=== PATIENT | female | born 1945 | race Hispanic/Latino ===

== ENCOUNTER 2018-05-03 14:06 | Inpatient (IN) | payer OTHER ==
[2018-05-03] MEDS ORDERED: ONDANSETRON 4 MG/2 ML VIAL ONE ×2 (15:29→22:15)
[2018-05-03] MEDS ORDERED: NA CHLORIDE 0.9% 1,000 ML ONE (15:29)
[2018-05-03 15:32] LABS: Absolute Monocytes 0.6 K/uL (0.1-1.3); Basophils % 0.6 % (0-1.3); Hematocrit 47.9 % (36.0-45.0); Lymphocytes % 9.5 % (15.3-44.8); MPV 7.8 fL (7.6-11.3); RBC Red Blood Cell Count 5.28 M/uL (3.86-4.86)
[2018-05-03 15:52] LABS: Albumin 3.7 g/dL (3.4-5.0); Bilirubin Direct 0.2 mg/dL (0-0.2); Bilirubin Total 0.8 mg/dL (0.2-1.0); Potassium 4.2 mmol/L (3.5-5.1); Protein, Total 8.2 g/dL (6.4-8.2)
--- NOTE | 2018-05-03 16:16 | RAD REPORT ---
EXAM DESCRIPTION: US - Abdomen Exam Limited - 05/03/2018 3:57 pm CLINICAL HISTORY: ABD PAIN COMPARISON: No comparisons FINDINGS: The gallbladder demonstrates several large shadowing gallstones. No pericholecystic fluid or gallbladder wall thickening. The common bile duct is normal measuring 5 mm. The liver demonstrates fatty liver. IMPRESSION: Cholelithiasis.
[2018-05-03] MEDS ORDERED: MEPERIDINE HCL 25 MG/0.5 ML ONE (18:08)
--- NOTE | 2018-05-03 18:19 | RAD REPORT ---
EXAM DESCRIPTION: CTAbdomen Pelvis W Contrast - 05/03/2018 6:09 pm CLINICAL HISTORY: Abdominal pain. Abd pain;Nausea / vomiting COMPARISON: No comparisons TECHNIQUE: Biphasic CT imaging of the abdomen and pelvis was performed with 100 ml non-ionic IV cont rast. All CT scans are performed using dose optimization technique as appropriate and may include automated exposure control or mA/KV adjustment according to patient size. FINDINGS: The lung bases are clear. Diffuse fatty liver is present. Cholelithiasis noted. The spleen, pancreas, adrenal glands and kidney s are within normal limits. Mild ascites is present in the abdomen. There is a moderate mechanical small-bowel obstruction presen t. Point of transition is noted in the distal small bowel (image 54/93). A subtle swirling appearance to the mesenteric fat and bowel loops in this region noted. No pneumatosis is seen. No pneumoperiton eum. The appendix is normal. No evidence of significant lymphadenopathy. No suspicious bony findings. IMPRESSION: Moderate mechanical small-bowel obstruction is noted with mild ascites. Point of transit ion is noted at the level of the distal small bowel where a mild swirling pattern is present to the s mall bowel and mesenteric fat. This could indicate the presence of a partial volvulus or adhesions in this region. Cholelithiasis. Fatty liver.
--- NOTE | 2018-05-03 18:36 | EDPHYS ---
Physician Documentation [facility] Name: Yoselin Blum Age: 72 yrs Sex: Female : 1945 Arrival Date: 05/03/2018 Time: 14:09 Bed 17 Private MD: Ruiz Kang ED Physician Yossi Stanley HPI: 05/03 15:09 This 72 yrs old Female presents to ER via Ambulatory with complaints of rn Abdominal Pain. 15:09 The patient presents with abdominal pain that is diffuse. Onset: The symptoms/episode rn began/occurred 2 day(s) ago. The symptoms do not radiate. Associated signs and symptoms: Pertinent positives: nausea and vomiting, anorexia, Pertinent negatives: diarrhea, fever. Modifying factors: The symptoms are alleviated by nothing, the symptoms are aggravated by touching the area. Severity of pain: At its worst the pain was moderate. The patient has not experienced similar symptoms in the past. The patient has been recently seen by a physician:. Reports saw Dr. Kang earlier this week, diagnosed with bronchitis, given abx, last 2 days with nausea/vomiting/abd pain, getting worse, no diarrhea. . Historical: - Allergies: 14:41 Aspirin; dm5 - Home Meds: 14:41 None [Active]; dm5 - PMHx: 14:41 seaosnal allergies; dm5 - PSHx: 14:41 Hysterectomy; dm5 - Immunization history:: Adult Immunizations. - Social history:: Smoking status: . - Family history:: not pertinent. - Ebola Screening: : Patient denies travel to an Ebola-affected area in the 21 days before illness onset. - Hospitalizations: : No recent hospitalization is reported. ROS: 15:09 Constitutional: Negative for fever, chills, and weight loss, Eyes: Negative for injury, rn pain, redness, and discharge, Neck: Negative for injury, pain, and swelling, Cardiovascular: Negative for chest pain, palpitations, and edema, Respiratory: Negative for shortness of breath, cough, wheezing, and pleuritic chest pain, Abdomen/GI: + abd pain/nausea/vomiting MS/Extremity: Negative for injury and deformity, Skin: Negative for injury, rash, and discoloration, Neuro: Negative for headache, numbness, tingling, and seizure. Exam: 15:09 Constitutional: This is a well developed, well nourished patient who is awake, alert, rn appears weak and holding emesis bag Head/Face: Normocephalic, atraumatic. Eyes: Pupils equal round and reactive to light, extra-ocular motions intact. Lids and lashes normal. Conjunctiva and sclera are non-icteric and not injected. Cornea within normal limits. Periorbital areas with no swelling, redness, or edema. ENT: dry MM Abdomen/GI: soft, mild tenderness in all quadrants, worse epigastric and suprapubic regions. Skin: Warm, dry MS/ Extremity: Pulses equal, no cyanosis. Neurovascular intact. Full, normal range of motion. Equal circumference. Neuro: Awake and alert, GCS 15, oriented to person, place, time, and situation. Cranial nerves II-XII grossly intact. Motor strength 4/5 in all extremities. Sensory grossly intact. Vital Signs: 14:41 BP 124 / 59; Pulse 98; Resp 18; Temp 97.6; Pulse Ox 95% on R/A; Weight 65.77 kg; Height dm5 5 ft. 5 in. (165.10 cm); Pain 7/10; 15:45 BP 150 / 65; Pulse 79; Resp 18; Pulse Ox 99% on R/A; em 16:51 BP 153 / 67; Pulse 74; Resp 18; Pulse Ox 95% on R/A; ms 19:15 BP 131 / 81; Pulse 82; Resp 19 S; Temp 98(O); Pulse Ox 94% on R/A; cc3 20:13 BP 132 / 78; Pulse 82; Resp 19 S; Pulse Ox 96% on 2 lpm NC; cc3 21:00 BP 140 / 83; Pulse 82; Resp 19 S; Pulse Ox 95% on 2 lpm NC; cc3 14:41 Body Mass Index 24.13 (65.77 kg, 165.10 cm) dm5 MDM: 14:45 Patient medically screened. rn 18:33 Differential diagnosis: appendicitis, bowel obstruction, cholecystitis, Cholelithiasis, rn diverticulitis, gastritis, gastroesophageal reflux disease. Data reviewed: vital signs, nurses notes, lab test result(s), radiologic studies, CT scan, and as a result, I will admit patient. Counseling: I had a detailed discussion with the patient and/or guardian regarding: the historical points, exam findings, and any diagnostic results supporting the discharge/admit diagnosis, lab results, radiology results, the need for further work-up and treatment in the hospital. Response to treatment: the patient's symptoms have mildly improved after treatment, and as a result, I will admit patient. Admission orders: after a detailed discussion of the patient's condition and case, the admit orders are written by me. ED course: COnsulted with Dr. Galicia, will come to eval patient in ER. . 05/03 14:53 Order name: Basic Metabolic Panel 05/03 14:53 Order name: CBC with Diff; Complete Time: 16:41 rn 05/03 14:53 Order name: Hepatic Function rn 05/03 14:53 Order name: Lipase 05/03 14:53 Order name: Blood Culture Adult (2) 05/03 14:53 Order name: Urine Microscopic Only rn 05/03 14:54 Order name: Basic Metabolic Panel; Complete Time: 16:41 EDIA 05/03 14:54 Order name: Liver (Hepatic) Function; Complete Time: 16:41 EDIA 05/03 14:54 Order name: Lipase; Complete Time: 16:41 EDIA 05/03 19:27 Order name: Basic Metabolic Panel EDIA 05/03 19:27 Order name: Basic Metabolic Panel EDIA 05/03 19:27 Order name: CBC with Automated Diff EDIA 05/03 19:27 Order name: CBC with Automated Diff [facility] 05/03 14:53 Order name: IV Saline Lock; Complete Time: 15:16 05/03 14:53 Order name: Labs collected and sent; Complete Time: 15:16 05/03 14:53 Order name: CT Abd/Pelvis - W/Contrast; Complete Time: 18:22 rn 05/03 14:53 Order name: Urine Dipstick-Ancillary (obtain specimen); Complete Time: 18:00 rn 05/03 15:12 Order name: US Abdomen Limited; Complete Time: 16:41 rn 05/03 18:23 Order name: NG Tube; Complete Time: 19:06 rn 05/03 18:59 Order name: Chest Single View XRAY em 05/03 19:27 Order name: NPO EDMS Administered Medications: 15:15 Drug: NS 0.9% 1000 ml Route: IV; Rate: 1000 ml; Site: right antecubital; tw2 15:21 Drug: Zofran 4 mg Route: IVP; Site: right antecubital; tw2 18:02 Drug: Demerol 25 mg Route: IVP; Site: right antecubital; tw2 19:15 Follow up: Response: No adverse reaction; Pain is decreased em 19:04 Drug: Zosyn 3.375 grams Route: IVPB; Infused Over: 60 mins; Site: right antecubital; em 20:10 Follow up: Response: No adverse reaction; IV Status: Completed infusion; IV Intake: cc3 100ml 19:10 Drug: morphine 4 mg Route: IVP; Site: right antecubital; tw2 19:40 Follow up: Response: No adverse reaction; Pain is decreased cc3 Disposition: 05/03/18 18:35 Hospitalization ordered by Sixto Galicia for Inpatient Admission. Preliminary diagnosis are Small bowel obstruction, Dehydration, Volvulus. - Bed requested for Telemetry/MedSurg (Inpatient). - Status is Inpatient Admission. cc3 - Condition is Stable. - Problem is new. - Symptoms have improved. UTI on Admission? No Signatures: Dispatcher [employer] EDIA Janessa Zamudio RN RN dm5 Brenda Lepe RN RN Rivera Mcconnell, DIAMOND MOUNTER DIAMOND MOUNTER Yossi Stanley MD MD rn Wise, Tara, RN RN tw2 Charlene Monge cc3 Corrections: (The following items were deleted from the chart) 18:36 18:35 Hospitalization Ordered by Sixto Galicia MD for Inpatient Admission. Preliminary rn diagnosis is Small bowel obstruction; Dehydration. Bed requested for Telemetry/MedSurg (Inpatient). Status is Inpatient Admission. Condition is Stable. Problem is new. Symptoms have improved. UTI on Admission? No. rn 19:27 18:04 URINE DIPSTICK--ANCILLARY+U.LAB.BRZ ordered. [facility] EDIA 19:42 18:36 05/03/2018 18:35 Hospitalization Ordered by Sixto Galicia MD for Inpatient fc Admission. Preliminary diagnosis is Small bowel obstruction; Dehydration; Volvulus. Bed requested for Telemetry/MedSurg (Inpatient). Status is Inpatient Admission. Condition is Stable. Problem is new. Symptoms have improved. UTI on Admission? No. rn 21:16 19:42 05/03/2018 18:35 Hospitalization Ordered by Sixto Galicia MD for Inpatient cc3 Admission. Preliminary diagnosis is Small bowel obstruction; Dehydration; Volvulus. Bed requested for Telemetry/MedSurg (Inpatient). Status is Inpatient Admission. Condition is Stable. Problem is new. Symptoms have improved. UTI on Admission? No. fc
--- NOTE | 2018-05-03 18:36 | ER ---
Nurse's Notes [facility] Name: Yoselin Blum Age: 72 yrs Sex: Female : 1945 Arrival Date: 05/03/2018 Time: 14:09 Bed 17 Private MD: Ruiz Kang Diagnosis: Small bowel obstruction;Dehydration;Volvulus Presentation: 05/03 14:37 Presenting complaint: states: had bronchitis last week, given antibiotics and dm5 cough medication from [facility] last week. Pt has had abdominal pain and unable have a bowel movement until yesterday. Prior to that last bowel movement was 3 days ago. Pt has diffuse abdominal pain with bloating. Pt did have bowel movement yesterday that was firm after taking laxatives, but still has pain. Transition of care: patient was not received from another setting of care. Onset of symptoms was April 29, 2018. Risk Assessment: Do you want to hurt yourself or someone else? Patient reports no desire to harm self or others. Initial Sepsis Screen: Does the patient meet any 2 criteria? No. Patient's initial sepsis screen is negative. Does the patient have a suspected source of infection? No. Patient's initial sepsis screen is negative. Care prior to arrival: None. 14:37 Method Of Arrival: Ambulatory dm5 14:37 Acuity: BARBI 3 dm5 Triage Assessment: 14:41 General: Appears in no apparent distress. uncomfortable, Behavior is calm, cooperative. dm5 Pain: Complains of pain in abdomen. GI: Reports lower abdominal pain, upper abdominal pain, nausea, vomiting, emesis is green. Historical: - Allergies: 14:41 Aspirin; dm5 - Home Meds: 14:41 None [Active]; dm5 - PMHx: 14:41 seaosnal allergies; dm5 - PSHx: 14:41 Hysterectomy; dm5 - Immunization history:: Adult Immunizations. - Social history:: Smoking status: . - Family history:: not pertinent. - Ebola Screening: : Patient denies travel to an Ebola-affected area in the 21 days before illness onset. - Hospitalizations: : No recent hospitalization is reported. Screenin:15 Abuse screen: Denies threats or abuse. Nutritional screening: No deficits noted. em Tuberculosis screening: No symptoms or risk factors identified. Fall Risk None identified. Assessment: 15:15 General: Appears in no apparent distress. uncomfortable, Behavior is calm, cooperative, em Reports fever for. Pain: Complains of pain in abdomen Pain currently is 7 out of 10 on a pain scale. Neuro: Level of Consciousness is awake, alert, obeys commands, Oriented to person, place, time, situation. Cardiovascular: Capillary refill < 3 seconds Patient's skin is warm and dry. Respiratory: Airway is patent Respiratory effort is even, unlabored, Respiratory pattern is regular, symmetrical. GI: Abdomen is flat, Bowel sounds present X 4 quads. Abd is soft X 4 quads Abdomen is tender to palpation X 4 quads. Reports nausea, vomiting. Derm: Skin is intact, is healthy with good turgor, Skin is pink, warm \\T\\ dry. Musculoskeletal: Capillary refill < 3 seconds, Range of motion: intact in all extremities. 15:18 Reassessment: I agree with the above assessment by PRASHANTH Stafford. tw2 15:45 Reassessment: finished drinking PO contrast, tolerated well. em 17:40 Reassessment: Patient appears in no apparent distress at this time. Patient and/or em family updated on plan of care and expected duration. Pain level reassessed. Patient is alert, oriented x 3, equal unlabored respirations, skin warm/dry/pink. currently denies pain, states "it comes and goes". 17:58 Reassessment: reports pain at this time, rates pain 8/10, provider notified, new em medication orders received. 18:30 Reassessment: Patient appears in no apparent distress at this time. Patient and/or em family updated on plan of care and expected duration. Pain level reassessed. Patient is alert, oriented x 3, equal unlabored respirations, skin warm/dry/pink. Patient states feeling better. 19:15 Reassessment: Patient appears in no apparent distress at this time. Patient and/or cc3 family updated on plan of care and expected duration. Pain level reassessed. Patient is alert, oriented x 3, equal unlabored respirations, skin warm/dry/pink. Received this female patient from morning shift PRASHANTH Stafford as a case of small bowel obstruction for admission awaiting room availability. With IV cannula gauge 20 at the right ACV with ongoing IV antibiotic of Tazocin infusing well. Noted to have NGT at the left nostril attached to low intermittent suction with greenish abdominal fluid noted. 20:15 Reassessment: Patient appears in no apparent distress at this time. Patient and/or cc3 family updated on plan of care and expected duration. Pain level reassessed. Patient is alert, oriented x 3, equal unlabored respirations, skin warm/dry/pink. Dr. Galicia assessing the patient at bedside, room available at 210, called for report but was told to ask Dr. Galicia first if patient will go direct OR or not then to call back again if patient will go direct to the floor. 20:20 Reassessment: Patient appears in no apparent distress at this time. Patient and/or cc3 family updated on plan of care and expected duration. Pain level reassessed. Patient is alert, oriented x 3, equal unlabored respirations, skin warm/dry/pink. Dr. Galicia said patient will go direct OR, charge nurse Brenda and nursing maintenance supervisor 2nd shift Hermila informed. 21:15 Reassessment: Patient appears in no apparent distress at this time. Patient and/or cc3 family updated on plan of care and expected duration. Pain level reassessed. Patient is alert, oriented x 3, equal unlabored respirations, skin warm/dry/pink. OR nurse PHILIP Huynh came to get the patient and report handed over to her. Patient left ER vitally stable by stretcher escorted by PHILIP Huynh and the patient's family. Vital Signs: 14:41 BP 124 / 59; Pulse 98; Resp 18; Temp 97.6; Pulse Ox 95% on R/A; Weight 65.77 kg; Height dm5 5 ft. 5 in. (165.10 cm); Pain 7/10; 15:45 BP 150 / 65; Pulse 79; Resp 18; Pulse Ox 99% on R/A; em 16:51 BP 153 / 67; Pulse 74; Resp 18; Pulse Ox 95% on R/A; ms 19:15 BP 131 / 81; Pulse 82; Resp 19 S; Temp 98(O); Pulse Ox 94% on R/A; cc3 20:13 BP 132 / 78; Pulse 82; Resp 19 S; Pulse Ox 96% on 2 lpm NC; cc3 21:00 BP 140 / 83; Pulse 82; Resp 19 S; Pulse Ox 95% on 2 lpm NC; cc3 14:41 Body Mass Index 24.13 (65.77 kg, 165.10 cm) dm5 ED Course: 14:09 Patient arrived in ED. mr 14:09 Ruiz Kang MD is Private Physician. mr 14:40 Triage completed. dm5 14:41 Arm band placed on left wrist. dm5 14:45 Yossi Stanley MD is Attending Physician. rn 15:14 Initial lab(s) drawn, by me, sent to lab. First set of blood cultures drawn by me. ms 15:19 Inserted saline lock: 20 gauge in right antecubital area, using aseptic technique. ms Blood collected. 15:21 Rivera Mcconnell LVN is Primary Nurse. em 15:21 Patient has correct armband on for positive identification. Placed in gown. Bed in low em position. Call light in reach. Adult w/ patient. Pulse ox on. NIBP on. 15:56 Ultrasound completed. Patient tolerated well. sg3 15:57 US Abdomen Limited In Process Unspecified. EDMS 18:01 Urine collected: clean catch specimen, clear. ms 18:10 CT Abd/Pelvis - W/Contrast In Process Unspecified. EDMS 18:35 Sixto Galicia MD is Hospitalizing Provider. rn 18:50 NGT: inserted 14 Fr. via left nare. verified placement of air over stomach, verified em return of gastric contents, to intermittent suction. Returned gastric contents. Returned bile. Patient tolerated well. 19:15 Chest Single View XRAY In Process Unspecified. EDMS 21:15 No provider procedures requiring assistance completed. Patient admitted, IV remains in cc3 place. Administered Medications: 15:15 Drug: NS 0.9% 1000 ml Route: IV; Rate: 1000 ml; Site: right antecubital; tw2 15:21 Drug: Zofran 4 mg Route: IVP; Site: right antecubital; tw2 18:02 Drug: Demerol 25 mg Route: IVP; Site: right antecubital; tw2 19:15 Follow up: Response: No adverse reaction; Pain is decreased em 19:04 Drug: Zosyn 3.375 grams Route: IVPB; Infused Over: 60 mins; Site: right antecubital; em 20:10 Follow up: Response: No adverse reaction; IV Status: Completed infusion; IV Intake: cc3 100ml 19:10 Drug: morphine 4 mg Route: IVP; Site: right antecubital; tw2 19:40 Follow up: Response: No adverse reaction; Pain is decreased cc3 Intake: 20:10 IV: 100ml; Total: 100ml. cc3 Outcome: 18:35 Decision to Hospitalize by Provider. rn 21:15 Admitted to OR accompanied by nurse, family with patient, via stretcher, with oxygen, cc3 with chart, Report called to OR nurse PHILIP Huynh 21:15 Condition: stable 21:15 Instructed on the need for admit, Demonstrated understanding of instructions. 21:16 Patient left the ED. cc3 Signatures: Dispatcher [employer] Janessa Ray, RN Maddie Hancock mr Rivera Mcconnell, SEED LABORATORY ASSISTANT SEED LABORATORY ASSISTANT Alecia Rizvi ms, Roman, MD MD rn Wise, Tara, RN RN tw2 Caren Baron 3 Charlene Monge cc3
[2018-05-03] MEDS ORDERED: MORPHINE 4 MG/ML SYR ONE (18:50)
[2018-05-03] MEDS ORDERED: PIPER/TAZO/NS 3.375gm 3.375 GM/100 ML BAG ONE (18:50)
[2018-05-03 18:51] LABS: Urine Bacteria <20 /HPF (<20); Urine RBC <5 /HPF (NONE SEEN)
[2018-05-03 18:52] LABS: Urine Culture Reflex Order NOT NEEDED
--- NOTE | 2018-05-03 19:23 | RAD REPORT ---
EXAM DESCRIPTION: RAD - Chest Single View - 05/03/2018 7:15 pm CLINICAL HISTORY: Post Ng tube Chest pain. COMPARISON: Chest Pa And Lat (2 Views) dated 05/01/2018; CHEST SINGLE VIEW dated 03/06/2014Chest Pa An d Lat (2 Views) dated 05/01/2018; CHEST SINGLE VIEW dated 03/06/2014 FINDINGS: The enteric tube coils in the stomach.
[2018-05-03] MEDS ORDERED: D5 0.45 NS 1,000 ML IV SCH (19:26)
[2018-05-03] MEDS ORDERED: Ringers Lactate 1,000 ML IV ONE ×2 (21:36→23:47)
[2018-05-03] MEDS ORDERED: PROPOFOL 200 MG/20 ML VIAL IV ONE (22:14)
[2018-05-03] MEDS ORDERED: FENTANYL CITR 100 MCG/2 ML ONE (22:14)
[2018-05-03] MEDS ORDERED: GLYCOPYRROLATE 0.2 MG/ML SYR ONE (22:15)
[2018-05-03] MEDS ORDERED: NEOSTIGMINE 1 MG/ML -10 ML VIAL ONE (22:15)
[2018-05-03] MEDS ORDERED: MIDAZOLAM HCL 2 MG/2 ML INJ ONE (22:15)
[2018-05-03] MEDS ORDERED: LIDOCAINE 2% MPF 5 ML VIAL ONE (22:16)
[2018-05-03] MEDS ORDERED: KETOROLAC 30 MG/ML INJ ONE (22:16)
[2018-05-03] MEDS ORDERED: ROCURONIUM 50 MG/5 ML VIAL IV ONE (22:16)
--- NOTE | 2018-05-03 22:29 | P.HP ---
Date of Service: 05/03/18 PC: This 72-year-old female presents emergency room with severe abdominal pain for diagnosis and treatment. HPC: Patient has been on well since Saturday. Noticed that she had hard cramping abdominal pain going on since then. Was at home when could no longer stand it and aspirin brought to the emergency room. A few days prior to this she been started on antibiotics for some chronic bronchitis. PMH: Negative PSHx: Previous abdominal hysterectomy SOC: Allergic to aspirin SYS REVIEW: No cough, wheeze, shortness of breath. No chest pain or palpitations. Denies any urinary complaints. Has not been having bowel movements or passing gas for last 48 hr despite having taken some MiraLax. Lives at home with her (74) but does have family in the vicinity. O/E awake alert vital signs are stable HEENT: Within normal limits. Nasogastric tube in place drained about 800 cc of dark greenish material. Chest: Chest movement equal bilaterally ABD: Abdomen is distended and tympanic with hyperactive bowel sounds. LOCO: Intact DATA: CT scan shows distal small bowel obstruction. There is a worrisome so oral representing possible volvulus of the small bowel. IMPRESSION: Small-bowel obstructions PLAN: I will take her to the operating room for a exploratory laparotomy. I suspect that she has adhesions Ching resulting small bowel obstruction. The risks of this procedure have been discussed with the patient. The possibility of bleeding, infection, injury to blood vessels bowel in ureters has been outlined. The possible need for bowel resection EVD include the ostomies were explained. They understand and want to proceed.
[2018-05-03] MEDS ORDERED: MORPHINE 2 MG/ML SYR IV PRN (22:53)
[2018-05-03] MEDS ORDERED: ACETAMINOPHEN 500 MG TAB PO PRN (22:53)
--- NOTE | 2018-05-03 23:35 | P.OP ---
Preoperative diagnosis: Small Bowel obstruction Postoperative diagnosis: Small bowel obstruction Primary procedure: Exploratory laparotomy, lysis of adhesions Anesthesia: General Estimated blood loss: Less than 20 cc Specimen: No specimen was sent Operative Technique: The patient brought the operating room and placed supine on the table. After the induction of adequate general endotracheal anesthesia, the area of the abdomen was prepped with a DuraPrep solution, issues draped in usual aseptic manner. A generous midline incision was made. This was brought down through the skin and subcutaneous tissue. The incision started 5 fingers breath above the emboli kiss. Through this virgin [place] we were able to identify the fascia. It was opened in the midline. We could see the peritoneum. Taking hemostat was grasped and sharply incised with a 10 blade. We encounter some dark series stained serous fluid from the peritoneal cavity. The incision was now opened for the full length of our incision. We could immediately see congested small bowel. This was traced in inferior direction. The midline incision was gradually cleared. There was a loop of small bowel that was adherent to the old incision around which this loop of the apical bowel had twisted causing a complete obstruction in this area. The bowel proximally was markedly dilated and distally it was collapsed. This band was now divided. The bowel was on spine. We were able to now trace the bowel from the ligament of Treitz all the way down to the ileocecal valve. The intestines were returned to their normal anatomical position. A hand placed into the pelvis revealed a small band from a [place] a going from the sigmoid colon to the anterior abdominal wall. This band was also taken down to prevent any future obstructions. At this point the intestines have been returned to their now normal anatomical position. The midline incision was closed with a running suture of 2. Nylon. This was looped and was started from the bottom of our incision around to the top. The redundant portion was buried in the subcutaneous tissue. [place] were then applied to the skin. At the end of the procedure the patient was in a stable condition when sent to the recovery room. The nasogastric tube noted in place in the ER will would be removed in the morning. They did Portillo catheter that was placed preoperatively will also be removed in the a.m.. Estimated blood loss was less t than 10 cc. Needle sponge instrument count were correct. No drains were placed. Complications: None Transferred to: Recovery Room Condition: Good
[2018-05-03] MEDS: HYDROMORPHONE HCL 2 MG/ML inj ONE ×4 (23:37→23:52)
[2018-05-03] MEDS ORDERED: MINERAL OIL 30 ML UCUP GT ONE (23:40)
[2018-05-04] MEDS: HYDROMORPHONE HCL 2 MG/ML inj ONE
[2018-05-04] MEDS: NA CHLORIDE 0.9% 1,000 ML IV SCH ×3 (00:30→19:00)
[2018-05-04] MEDS ORDERED: PIPER/TAZO/NS 3.375gm 3.375 GM/100 ML BAG IVPB SCH ×2 (01:00→02:00)
[2018-05-04] MEDS ORDERED: PIPER/TAZO/NS 3.375gm 3.375 GM/100 ML BAG ONE (01:28)
[2018-05-04 06:36] LABS: Absolute Lymphocytes (CBC) 0.7 K/uL (0.7-4.9); Absolute Monocytes 0.5 K/uL (0.1-1.3); Absolute Neutrophil 8.9 K/uL (1.8-8.0); Basophils % 0.1 % (0-1.3); Hematocrit 40.7 % (36.0-45.0); Lymphocytes % 6.7 % (15.3-44.8); MPV 7.9 fL (7.6-11.3); Monocytes % 4.7 % (3.3-12.3); RBC Red Blood Cell Count 4.46 M/uL (3.86-4.86)
[2018-05-04 06:54] LABS: ALT/SGPT 16 U/L (12-78); AST/SGOT 13 U/L (15-37); Albumin 2.7 g/dL (3.4-5.0); Alkaline Phosphatase 60 U/L (45-117); BUN Blood Urea Nitrogen 13 mg/dL (7-18); Bicarbonate 29 mmol/L (21-32); Bilirubin Total 0.6 mg/dL (0.2-1.0); Glucose Level 122 mg/dL (74-106); Potassium 3.7 mmol/L (3.5-5.1); Sodium Level 142 mmol/L (136-145)
[2018-05-04 06:55] LABS: Protime INR 1.13
[2018-05-04 08:53] LABS: Platelet Estimate ADEQ
[2018-05-04 08:54] LABS: Blood Morphology Comment NOT SEEN (NOT SEEN); Platelets, Giant RARE
[2018-05-04] MEDS ORDERED: PNEUMOCOCCAL VACCINE 0.5 ML IMVAC ONE (09:00)
[2018-05-04] MEDS ORDERED: INFLUENZA VACCINE (for 3y+) 0.5 ML DOSE IMVAC ONE (09:00)
[2018-05-04] MEDS: PIPER/TAZO/NS 3.375gm 3.375 GM/100 ML BAG IVPB SCH ×2 (09:29→17:10)
[2018-05-04] MEDS: MORPHINE 4 MG/ML SYR IV PRN ×3 (14:05→21:03)
[2018-05-04] MEDS: ONDANSETRON 4 MG/2 ML VIAL IV PRN (14:05)
--- NOTE | 2018-05-04 16:04 | P.PN ---
Date of Service: 05/04/18 S: Patient feels well today, up ambulating, good effort on incentive spirometry. Has incisional pain, but abdominal discomfort is gone. O: Vital signs remain stable, H&H is stable A: Doing well after lyses of adhesions P: Continue to mobilize patient. Will have social sciences chair evaluate regarding home health tomorrow..
--- NOTE | 2018-05-04 16:59 | PN ---
Date of Progress Note: 05/04/2018 Subjective: The patient is seen and examined. Chart reviewed and case discussed with RN and Dr. Galicia. The patient did well postoperatively. The patient had lysis of adhesions, ex lap by Dr. Galicia. Code Status: Full. Medications: List reviewed. Physical Examination: Vital Signs: Temperature 97.3, heart rate 68, blood pressure 147/67, respirations 17, O2 of 99% on 2 L via nasal cannula. General: Awake, alert, oriented x3. Elderly female, ill appearing, in some acute pain. CV: S1, S2. Regular rate and rhythm. Peripheral pulses present. Respiratory: Moving air well bilaterally. No wheezing or stridor. Gastrointestinal: Abdomen is soft, nondistended. Some mild tenderness to palpation around the incision site. Incision sites are clean, dry, and intact. Bowel sounds hypoactive. Extremities: No clubbing, cyanosis, or edema. Neurologic: Cranial nerves II through XII intact grossly. No focal neurological deficit. Speech is normal. Laboratory Data: Sodium 142, potassium 3.7, chloride 107, CO2 29, BUN 13, creatinine 0.52, glucose 122, calcium 7.9, albumin 2.7. WBC 10, H and H 13.5/ 40.7, platelets 308, neutrophils 88%, 4% bands. Blood cultures pending. Assessment: A 72-year-old female with: 1. Small bowel obstruction, status post exploratory laparotomy and lysis of adhesions. The patient did well postoperatively. Encourage ambulation with assist and incentive spirometry. We will await bowel function return. Dr. Galicia on the case. 2. Hyperglycemia, likely due to acute phase reactant. We will check hemoglobin A1c. The patient has no history of diabetes. 3. Moderate protein calorie malnutrition. Albumin is 2.7. 4. Deep vein thrombosis prophylaxis with SCDs. Restart chemical anticoagulation 24 hours after surgery. Plan: Continue pain control, IV antibiotics. Follow up on cultures. Await bowel function return. Encourage ambulation. Transfer to Dr. Sanchez service in am once he is back in [facility]. /CHERI Voice ID: [id number] Report ID: [id number] KEVIN
--- NOTE | 2018-05-04 18:24 | P.CNS ---
Date of Consult: 05/03/18 Reason for Consult: Medical management Requesting Physician: Sixto Galicia Primary Care Provider: Dr. Ruiz Kang Chief Complaint: small-bowel obstruction History of Present Illness: Patient is a 72-year-old female came to the hospital small bowel obstruction. patient was seen by General surgery in the emergency room and patient was taken to the operating room. There patient had lysis of adhesions. After the procedure, patient was requiring admission. Because of patient's advanced age and questionable medical history decision was made to admit to the hospitalist service with surgical consultation. Will continue to monitor patient. Patient is hemodynamically stable. Monitor labs. Admit for Inpatient treatment. Allergies aspirin Allergy (Verified 05/04/18 00:53) Rash, SOB Home Medications: NK [No Home Meds] 05/04/18 - Past Medical/Surgical History Diabetic: No -: Chronic bronchitis -: hysterectomy - Family History Father Family History: Reviewed- Non-Contributory - Social History Alcohol use: Yes CD- Drugs: No Place of Residence: Home Review of Systems 10-point ROS is otherwise unremarkable Physical Examination Temp Pulse Resp BP Pulse Ox 98.2 F 69 18 135/65 93 05/04/18 12:00 05/04/18 12:00 05/04/18 12:00 05/04/18 12:00 05/04/18 12:00 General: Alert, In no apparent distress, Oriented x3 HEENT: Atraumatic, Normocephalic Neck: Supple, 2+ carotid pulse no bruit, JVD not distended, No Thyromegaly Respiratory: Clear to auscultation bilaterally, Normal air movement Cardiovascular: Regular rate/rhythm, Normal S1 S2 Gastrointestinal: Soft and benign, Non-distended, Absent bowel sounds Musculoskeletal: No clubbing, No swelling Integumentary: No rashes, No breakdown, No significant lesion, No tenderness/ swelling Neurological: Normal gait, Normal speech, Normal strength at 5/5 x4 extr, Normal tone, Sensation intact, Cranial nerves 3-12 intact - Problems (1) Small bowel obstruction Current Visit: Yes Status: Acute Conclusions/ Impression: -management per surgery -PT evaluation -DVT prophylaxis -IV hydration and IV antibiotics - NPO and diet per surgery -strict blood pressure and blood sugar control -monitor electrolytes and blood count closely -Dc Portillo catheter in 48 hr -pain control Critical Care: No Time Spent Managing Pts care (In Minutes): 45
[2018-05-05] MEDS: PIPER/TAZO/NS 3.375gm 3.375 GM/100 ML BAG IVPB SCH ×2 (00:47→08:03)
[2018-05-05] MEDS: NA CHLORIDE 0.9% 1,000 ML IV SCH ×3 (05:00→15:00)
[2018-05-05 06:35] LABS: Absolute Neutrophil 6.8 K/uL (1.8-8.0); Basophils % 0.4 % (0-1.3); Eosinophils % 2.1 % (0-4.4); Hematocrit 38.6 % (36.0-45.0); Lymphocytes % 11.4 % (15.3-44.8); MPV 7.8 fL (7.6-11.3); Monocytes % 10.6 % (3.3-12.3); RBC Red Blood Cell Count 4.26 M/uL (3.86-4.86)
[2018-05-05 06:51] LABS: ALT/SGPT 15 U/L (12-78); AST/SGOT 16 U/L (15-37); Albumin 2.7 g/dL (3.4-5.0); Alkaline Phosphatase 58 U/L (45-117); BUN Blood Urea Nitrogen 7 mg/dL (7-18); Bicarbonate 29 mmol/L (21-32); Bilirubin Total 0.9 mg/dL (0.2-1.0); Glucose Level 95 mg/dL (74-106); Potassium 3.4 mmol/L (3.5-5.1); Protein, Total 6.1 g/dL (6.4-8.2); Sodium Level 140 mmol/L (136-145)
[2018-05-05] MEDS: MORPHINE 4 MG/ML SYR IV PRN ×2 (08:02→20:53)
--- NOTE | 2018-05-05 14:24 | P.PN ---
Date of Service: 05/05/18 S: She feels much better, move around much more easily today. O: Vital signs remain stable, incisions are clean, good effort on incentive spirometry. A: Doing well status post exploratory laparotomy P: I will decrease her IV fluids to TKO, Dc antibiotics, diet as tolerated. Anticipate discharge in a.m..
[2018-05-06] MEDS: NA CHLORIDE 0.9% 1,000 ML IV SCH ×2 (04:48→09:45)
[2018-05-06] MEDS ORDERED: cloNIDine HCl 0.1 MG TAB PO PRN (06:00)
[2018-05-06 07:04] LABS: Absolute Lymphocytes (CBC) 0.9 K/uL (0.7-4.9); Absolute Neutrophil 8.4 K/uL (1.8-8.0); Basophils % 0.5 % (0-1.3); Eosinophils % 1.7 % (0-4.4); Hematocrit 37.9 % (36.0-45.0); Lymphocytes % 8.2 % (15.3-44.8); MPV 7.6 fL (7.6-11.3); Monocytes % 9.6 % (3.3-12.3); RBC Red Blood Cell Count 4.23 M/uL (3.86-4.86)
[2018-05-06 07:39] LABS: BUN Blood Urea Nitrogen 4 mg/dL (7-18); Bicarbonate 31 mmol/L (21-32); Glucose Level 107 mg/dL (74-106); Sodium Level 138 mmol/L (136-145)
[2018-05-06 07:40] LABS: Potassium 2.9 mmol/L (3.5-5.1)
[2018-05-06] MEDS: KCL 20 MEQ/100 mL IVPB 20 MEQ/100 ML BAG IV SCH ×3 (09:45→14:13)
--- NOTE | 2018-05-06 12:09 | P.PN ---
S: Patient feels well today, still a bit weak. Has been passing gas but still no bowel movements yet. Good effort on incentive spirometry. O: Incisions is clean, vital signs remain stable A: Surgically stable. Improving but still weak. P: Patient is doing well most likely will be able to be discharged from the acute care tomorrow. May benefit from extended stay at a rehab facility and at the least visiting nurses in the home. We will have social service liaison see what can be arranged. Anticipate discharge tomorrow.
[2018-05-06] MEDS: MORPHINE 4 MG/ML SYR IV PRN (14:21)
[2018-05-06] MEDS ORDERED: POTASSIUM CL SA 10 MEQ TAB PO ONE (21:00)
[2018-05-07] MEDS: MORPHINE 4 MG/ML SYR IV PRN ×2 (02:44→10:58)
[2018-05-07] MEDS: ONDANSETRON 4 MG/2 ML VIAL IV PRN ×2 (02:45→11:02)
[2018-05-07] MEDS: NA CHLORIDE 0.9% 1,000 ML IV SCH ×2 (06:37→15:27)
[2018-05-07 06:56] LABS: BUN Blood Urea Nitrogen 9 mg/dL (7-18); Bicarbonate 28 mmol/L (21-32); Glucose Level 123 mg/dL (74-106); Potassium 3.7 mmol/L (3.5-5.1); Sodium Level 137 mmol/L (136-145)
[2018-05-07] MEDS ORDERED: POTASSIUM CL SA 10 MEQ TAB PO ONE (09:00)
--- NOTE | 2018-05-07 14:56 | P.PN ---
Date of Service: 05/07/18 S: Patient apparently was up ambulating, went to the restroom last night, had lot of diarrhea. O: Vital signs are stable, patient feels much improved. Incision is clean. Stable status post exploratory laparotomy with lyses of adhesions. Patient has however grown out a positive stool culture for C diff. P: I will start her on p.o. vancomycin. We will keep clear until the morning. The most likely discharge her as long as she tolerates the oral medication.
[2018-05-07] MEDS: VANCOMYCIN ORAL SOLN 250 MG/5 ML OSYR PO SCH ×2 (15:26→18:00)
--- NOTE | 2018-05-07 18:22 | PN ---
When seen, the patient had not been seen by her surgeon. However, she started passing gas. Abdomen was not near as bloated. She felt considerably better. We will wait a surgical decision as far as d isposition is concerned. HR/MODL Voice ID: [id number] Report ID: [id number]
--- NOTE | 2018-05-07 20:35 | PN ---
Date of Progress Note: 05/07/2018 The patient developed explosive diarrhea x5 overnight. C. diff was cultured, therefore started on va ncomycin p.o., probably be able to be discharged in a.m. She is tolerating her diet and fluids with home health. Situation has been discussed with her surgeon, Dr. Sweet. HR/MODL Voice ID: [id number] Report ID: [id number]
[2018-05-08] MEDS: MORPHINE 4 MG/ML SYR IV PRN ×2 (00:35→11:44)
[2018-05-08] MEDS: ONDANSETRON 4 MG/2 ML VIAL IV PRN ×2 (00:36→11:46)
[2018-05-08] MEDS: VANCOMYCIN ORAL SOLN 250 MG/5 ML OSYR PO SCH ×5 (00:36→23:22)
[2018-05-08 06:49] LABS: BUN Blood Urea Nitrogen 10 mg/dL (7-18); Bicarbonate 27 mmol/L (21-32); Glucose Level 103 mg/dL (74-106); Potassium 3.4 mmol/L (3.5-5.1); Sodium Level 140 mmol/L (136-145)
[2018-05-08] MEDS ORDERED: POTASSIUM 25 MEQ EFFERV TAB PO ONE ×2 (09:00→17:00)
--- NOTE | 2018-05-08 10:45 | EKG ---
Test Date: 2018-05-08 Test Time: 06:12:03 Dip [place]: JASON MEASUREMENT RESULTS: Intervals: Rate: 87 [place]: 168 QRSD: 100 QT: 384 QTc: 462 [place]: P: 49 [place]: 168 QRS: -45 T: 61 INTERPRETIVE STATEMENTS: Normal sinus rhythm Left anterior fascicular block Abnormal ECG Compared to ECG 05/08/2018 05:46:33 Atrial fibrillation no longer present Ventricular premature complex(es) no longer present ST (T wave) deviation no longer present Electronically Signed On 05-08-18 10:43:23 CDT by Jacques Amos
--- NOTE | 2018-05-08 10:45 | EKG ---
Test Date: 2018-05-08 Test Time: 05:46:33 Manager Emergency Department: JASON MEASUREMENT RESULTS: Intervals: Rate: 159 [place]: QRSD: 96 QT: 298 QTc: 484 [place]: P: [place]: QRS: -49 T: 112 INTERPRETIVE STATEMENTS: Atrial fibrillation with rapid ventricular response with premature ventricular or aberrantly conducted complexes Left anterior fascicular block Marked ST abnormality, possible lateral subendocardial injury Abnormal ECG Compared to ECG 03/06/2014 10:22:03 Ventricular premature complex(es) now present ST (T wave) deviation now present Sinus rhythm no longer present Electronically Signed On 05-08-18 10:43:24 CDT by Jacques Amos
--- NOTE | 2018-05-08 11:11 | ECHO ---
HEIGHT: 5 ft 5 in WEIGHT: 145 lb 0 oz DATE OF STUDY: 05/08/[address]: ABHAY 2-DIMENSIONAL: YES M.MODE: YES DOPPLER: YES COLOR FLOW: YES TDS: NO PORTABLE: NO DEFINITY: NO BUBBLE STUDY: NO DIAGNOSIS: ATRIAL FIBRILLATION WITH RAPID VENTRICULAR RESPONSE CARDIAC HISTORY: CATHERIZATION: NO SURGERY: NO PROSTHETIC VALVE: NO PACEMAKER: NO MEASUREMENTS (cm) DIASTOLIC (NORMALS) SYSTOLIC (NORMALS) IVSd 1.0 (0.6-1.2) LA Diam 3.6 (1.9-4.0) LVEF 65% LVIDd 4.0 (3.5-5.7) LVIDs 2.6 (2.0-3.5) %FS 35% LVPWd 1.2 (0.6-1.2) Ao Diam (2.0-3.7) 2 DIMENSIONAL ASSESSMENT: RIGHT ATRIUM: NORMAL LEFT ATRIUM: NORMAL RIGHT VENTRICLE: NORMAL LEFT VENTRICLE: NORMAL TRICUSPID VALVE: NORMAL MITRAL VALVE: NORMAL PULMONIC VALVE: NORMAL AORTIC VALVE: NORMAL PERICARDIAL EFFUSION: NONE AORTIC ROOT: NORMAL LEFT VENTRICULAR WALL MOTION: NORMAL DOPPLER/COLOR FLOW: NORMAL COMMENTS: NORMAL 2D ECHOCARDIOGRAM WITH DOPPLER. NORMAL LEFT ATRIAL SIZE. NO THROMBUS. TECHNOLOGIST: Filiberto REZA
[2018-05-08] MEDS: NA CHLORIDE 0.9% 1,000 ML IV SCH (11:40)
--- NOTE | 2018-05-08 14:48 | CON ---
Date of Consultation: 05/08/2018 History Of Present Illness: Ms. Blum is 72, came in with a small bowel obstruction, was taken to the operating room on 05/05/2018, has no previous cardiac history, only takes aspirin at home. She has been having severe diarrhea. She is on isolation. C. difficile cultures are pending. Vancomyci n started. Last potassium was 2.8. Apparently had a short run of atrial fibrillation. An echocardi ogram is pending. Potassium and magnesium repeat are pending. I would not do anything further regar ding her atrial fibrillation, it was paroxysmal and short lasting. She is in sinus rhythm right now. We will see what the echo shows before making any final decisions. GARETT/CHERI Voice ID: [id number] Report ID: [id number]
[2018-05-08 15:39] LABS: BUN Blood Urea Nitrogen 8 mg/dL (7-18); Bicarbonate 31 mmol/L (21-32); Glucose Level 122 mg/dL (74-106); Magnesium 2.1 mg/dL (1.8-2.4); Phosphorus 1.2 mg/dL (2.5-4.9); Potassium 3.7 mmol/L (3.5-5.1); Sodium Level 138 mmol/L (136-145)
[2018-05-09] MEDS: NA CHLORIDE 0.9% 1,000 ML IV SCH (05:27)
[2018-05-09] MEDS: VANCOMYCIN ORAL SOLN 250 MG/5 ML OSYR PO SCH ×2 (05:27→12:00)
[2018-05-09 06:15] LABS: BUN Blood Urea Nitrogen 6 mg/dL (7-18); Bicarbonate 28 mmol/L (21-32); Glucose Level 92 mg/dL (74-106); Potassium 3.8 mmol/L (3.5-5.1); Sodium Level 141 mmol/L (136-145)
[2018-05-09] MEDS ORDERED: POTASSIUM CL SA 10 MEQ TAB PO ONE (09:00)
--- NOTE | 2018-05-09 10:19 | PN ---
Date of Progress Note: 05/08/2018 The patient states she feels somewhat better. Her stool is more formed. She has no explosive diarrh ea; however, her electrolytes have returned to normal with the exception of calcium and phosphorus. Her intake has improved somewhat. We will repeat the latter in the morning, and if okay, she could b e discharged on oral vancomycin. HR/MODL Voice ID: [id number] Report ID: [id number]
== END 2018-05-09 16:02 | disposition home health service (06) | DRG 336 ==
LOC: ER 14:06 → ERHOLD 19:26 → 2ND 23:21
PROVIDERS: ADMIT Family Medicine; ATTEND Family Medicine
PROC: 0DN80ZZ Release Small Intestine, Open Approach (ICD-10-PCS; 2018-05-03)
PROC: 0D9670Z Drainage of Stomach with Drainage Device, Via Natural or Artificial Opening (ICD-10-PCS; 2018-05-03)
PROC: 0DNN0ZZ Release Sigmoid Colon, Open Approach (ICD-10-PCS; principal; 2018-05-03 22:30)
DX: K56.52 Intestinal adhesions [bands] with complete obstruction (principal); E44.0 Moderate protein-calorie malnutrition; A04.72 Enterocolitis due to Clostridium difficile, not specified as recurrent; K56.2 Volvulus; J42 Unspecified chronic bronchitis; R73.9 Hyperglycemia, unspecified; I48.0 Paroxysmal atrial fibrillation; E87.8 Other disorders of electrolyte and fluid balance, not elsewhere classified; Z68.24 Body mass index [BMI] 24.0-24.9, adult
CPT/HCPCS: 36415; 71045; 71046; 74177; 76705; 80048; 80053; 80076; 81015; 83036; 83690; 83735; 83970; 84100; 84132; 84443; 85025; 85610; 85730; 87040; 87493; 90670; 93005; 93306; 96365; 96375; 99285; G0009; J1170; J2175; J2250; J2405; J2543; J2704; J2710; J3010; J7030; Q9967

== ENCOUNTER 2018-07-07 10:15 | Observation (INO) | payer OTHER ==
--- NOTE | 2018-07-07 09:53 | RAD REPORT ---
EXAM DESCRIPTION: RAD - Chest Pa And Lat (2 Views) - 07/07/2018 9:40 am CLINICAL HISTORY: Preop chest, pending laparoscopic cholecystectomy COMPARISON: April 2018 TECHNIQUE: PA and lateral views of the chest were obtained. FINDINGS: The lungs are clear of an acute lung parenchymal process. Interstitial pattern matches the comparison study. Right hemidiaphragm eventration is noted and stable. Heart size is normal and ce ntral vasculature is within normal limits. No pleural effusion or pneumothorax seen. No acute bony finding noted. No aortic abnormality. IMPRESSION: No acute cardiopulmonary process. No significant change from comparison.
[2018-07-07 09:55] LABS: Absolute Lymphocytes (CBC) 1.6 K/uL (0.7-4.9); Absolute Monocytes 0.3 K/uL (0.1-1.3); Absolute Neutrophil 2.1 K/uL (1.8-8.0); Basophils % 0.8 % (0-1.3); Eosinophils % 6.2 % (0-4.4); Hematocrit 41.9 % (36.0-45.0); Lymphocytes % 36.6 % (15.3-44.8); MPV 8.1 fL (7.6-11.3); Monocytes % 7.5 % (3.3-12.3); RBC Red Blood Cell Count 4.71 M/uL (3.86-4.86)
[2018-07-07 10:07] LABS: ALT/SGPT 22 U/L (12-78); AST/SGOT 17 U/L (15-37); Albumin 3.7 g/dL (3.4-5.0); Alkaline Phosphatase 90 U/L (45-117); Amylase Level 64 U/L (25-115); BUN Blood Urea Nitrogen 18 mg/dL (7-18); Bicarbonate 30 mmol/L (21-32); Bilirubin Direct 0.2 mg/dL (0-0.2); Bilirubin Total 0.6 mg/dL (0.2-1.0); Glucose Level 92 mg/dL (74-106); Lipase 115 U/L (73-393); Potassium 4.2 mmol/L (3.5-5.1); Protein, Total 7.7 g/dL (6.4-8.2); Sodium Level 145 mmol/L (136-145)
[2018-07-07] MEDS ORDERED: Ringers Lactate 1,000 ML IV ONE ×2 (10:37→14:07)
[2018-07-07] MEDS ORDERED: PROPOFOL 200 MG/20 ML VIAL IV ONE (10:53)
[2018-07-07] MEDS ORDERED: ONDANSETRON 4 MG/2 ML VIAL ONE (10:54)
[2018-07-07] MEDS ORDERED: MIDAZOLAM HCL 2 MG/2 ML INJ ONE (10:54)
[2018-07-07] MEDS ORDERED: LIDOCAINE 2% MPF 5 ML VIAL ONE (10:54)
[2018-07-07] MEDS ORDERED: FENTANYL CITR 250 MCG/5 ML ONE (10:54)
[2018-07-07] MEDS ORDERED: GLYCOPYRROLATE 0.2 MG/ML SYR ONE (10:54)
[2018-07-07] MEDS ORDERED: NEOSTIGMINE 1 MG/ML -10 ML VIAL ONE (11:04)
[2018-07-07] MEDS ORDERED: ROCURONIUM 50 MG/5 ML VIAL IV ONE (11:04)
[2018-07-07] MEDS ORDERED: BUPIVACAINE 0.5% PF 10 ML VIAL ONE (11:27)
[2018-07-07] MEDS ORDERED: CEFOXITIN/SWI 1gm 1 GM/10 ML SYR ONE (12:25)
--- NOTE | 2018-07-07 12:50 | EKG ---
Test Date: 2018-07-07 Test Time: 09:29:08 Director Of Property Management: SAJAN MEASUREMENT RESULTS: Intervals: Rate: 53 [place]: 162 QRSD: 96 QT: 444 QTc: 416 [place]: P: 39 [place]: 162 QRS: -21 T: 18 INTERPRETIVE STATEMENTS: Sinus bradycardia Otherwise normal ECG Compared to ECG 05/08/2018 06:12:03 Sinus rhythm no longer present Left anterior fascicular block no longer present Electronically Signed On 07-07-18 12:50:00 CDT by Graham Hassan
--- NOTE | 2018-07-07 13:55 | P.BOP ---
Preoperative diagnosis: symptomatic cholelithiasis, intractable RUQ abd pain, cholecystitis Postoperative diagnosis: same Primary procedure: Laparoscopic cholecystectomy Secondary procedure: Laparoscopic lysis of adhesions Extrusion Die Repair Manager: Cori Ordoñez (Ivana) Estimated blood loss: <20cc Specimen: gb Findings: see dictation Anesthesia: General Complications: None Drain(s): DEREK drain Transferred to: Recovery Room Condition: Fair
[2018-07-07] MEDS ORDERED: SODIUM CHLORIDE 0.9% 10ML INJ IV PRN (13:56)
[2018-07-07] MEDS: HYDROMORPHONE HCL 1 MG/ML INJ ONE ×6 (14:02→14:46)
[2018-07-07] MEDS ORDERED: LABETALOL 20 MG/4ML SYRINGE IV ONE (14:37)
[2018-07-07] MEDS ORDERED: KETOROLAC 30 MG/ML INJ ONE (15:07)
[2018-07-07] MEDS: HYDRALAZINE HCL 20 MG/ML VIAL ONE ×2 (15:51→16:01)
[2018-07-07] MEDS ORDERED: ONDANSETRON HCL 40 MG/20 ML VIAL ONE (16:25)
[2018-07-07] MEDS: MORPHINE 2 MG/ML SYR IV PRN (16:53)
[2018-07-07 17:13] VITALS: BMI 24.9
[2018-07-07] MEDS: CEFOXITIN/SWI 1gm 1 GM/10 ML SYR IV SCH ×2 (18:23→23:26)
[2018-07-07] MEDS: NA CHLORIDE 0.9% 1,000 ML IV SCH (18:23)
[2018-07-07] MEDS: HYDROCODONE/APAP 7.5/325 MG TAB PO PRN (18:24)
[2018-07-07] MEDS: ONDANSETRON 4 MG/2 ML VIAL IV PRN (19:16)
--- NOTE | 2018-07-08 00:46 | OP ---
Date of Procedure: 07/07/2018 Surgeon: Kane Morales MD Preoperative Diagnoses: Acute cholecystitis, symptomatic cholelithiasis, history of bowel obstructio n, recent history of laparotomy for extensive lysis of adhesions for small bowel obstruction. Postoperative Diagnoses: Acute cholecystitis, symptomatic cholelithiasis, history of bowel obstructi on, recent history of laparotomy for extensive lysis of adhesions for small bowel obstruction. Procedure: Laparoscopic cholecystectomy, laparoscopic lysis of adhesions. Anesthesia: General plus local. Findings: The patient has adhesions in the right upper abdomen. In order for us to go to the her ga llbladder, we have released them. At this moment, I did not see them kinking anything on the right u pper quadrant but the gallbladder was inflamed with acute cholecystitis. Indications: This is the case of a 72-year-old patient, just a few weeks ago had a laparotomy for es wel obstruction done in this institution by another surgeon. Everything went okay, but then the last week she started complaining about epigastric right upper quadrant pain radiating to the back with n ausea, bloating, and pain and she was discovered to have acute cholecystitis and symptomatic cholelit hiasis. Even though it is the recent from the previous surgery and she has a midline incision, we st ill are going to have to relieve this cholecystitis. She wants the surgery done, so we explained to her the benefits, alternatives, and risks of laparoscopic, possible open cholecystectomy with benefit s, alternatives, and risks including but not limited to infection, bleeding, damage to adjacent struc tures, anesthesia complications, choledocholithiasis, bile leak, pancreatitis, [place], and even . S he also understands this might not relieve any symptoms and she might need more than one surgical int ervention. We cannot forget that she recently had the midline incision for laparotomy for lysis of a dhesions that caused a bowel obstruction. Some new adhesions in that area may have to take care of w ere new in the area of the right upper quadrant. The patient was advised she may have to be admitted for observation and pain control. She understood, signed a consent. Description Of Procedure: The patient was brought to the operating room, placed in supine position. Anesthesia was done without complication. Abdominal area was prepped and draped in a sterile fashio n. A time-out was called. We have to plan her incisions differently because she had previous surger y recently, so we made our incision first in the epigastric region. Incision was carried down to fas nam, which was opened under direct vision. Peritoneum was encountered, opened under direct vision. Vicryl #1 placed inside the fascia. Gustavo trocar was carefully introduced. No bleeding was obtaine d. We noticed some adhesions in the right upper quadrant. Even though she had adhesions removed rec ently, she has need adhesions in the midline. At this time, it does not seem to be causing any bowel obstruction. So, we left those alone. We went to the left lower quadrant. We were able to put a 5 mm trocar and put a camera in that region to allow us access. That allowed me to use Endo Valentin an d remove the adhesions from the right upper quadrant and that relieved that area to be able to put tw o more trocars, 5 mm each one of them. No bleeding. This was done with the Bovie cauterizer. No en terotomies. At that moment, I proceeded to put a grasper in the fundus of the gallbladder, another g rasper in the infundibulum, removed some adhesions off omentum to the gallbladder carefully, then ret racted the gallbladder in the inferolateral fashion exposing the triangle of Calot. This shows an in flamed gallbladder with inflamed gallbladder wall. We proceeded to identify the cystic duct and cyst ic artery, and identified connection between that and the gallbladder. We proceeded to identify them and carefully isolate them. I placed 3 clips proximal, 1 clip distal, ligation in middle. Same was done with the cystic artery. The gallbladder was removed from liver using Bovie cauterizer and dawit ky from abdominal cavity using an EndoCatch through the epigastric incision. The area was inspected once again. The area is friable, it was inflamed. The patient has multiple adhesions. I proceeded to left a DEREK drain in that area exiting through one of the trocar sites. Once again, gallbladder fo ssa was cauterized until the point it was no bleeding at this moment. No bile leak. Clips were inta ct. We checked the area of the lysis of adhesions, looked intact. At that moment, I proceeded to re move the trocars under direct vision. Deflated pneumoperitoneum. Closed the fascia with 1 Vicryl, I rrigated subcutaneous tissue, closed that with 3-0 chromic and skin with radha. Sponge count and i nstrument counts were correct. Due to the extensive surgery and the cholecystitis and the lysis of a dhesions, we are going to keep the patient on observation. Advance diet slowly. Find how much pain medication she needs until she can go with the p.o. pain medication, and then proceed accordingly. T he patient's agreed. VERONICA/CHERI Voice ID: [id number] Report ID: [id number]
[2018-07-08] MEDS: ONDANSETRON 4 MG/2 ML VIAL IV PRN (03:14)
[2018-07-08] MEDS: MORPHINE 2 MG/ML SYR IV PRN ×2 (03:15→08:27)
[2018-07-08 04:20] LABS: Absolute Lymphocytes (CBC) 1.6 K/uL (0.7-4.9); Absolute Monocytes 0.6 K/uL (0.1-1.3); Absolute Neutrophil 5.5 K/uL (1.8-8.0); Basophils % 0.3 % (0-1.3); Eosinophils % 0.3 % (0-4.4); Hematocrit 35.6 % (36.0-45.0); Lymphocytes % 20.9 % (15.3-44.8); MPV 8.2 fL (7.6-11.3); Monocytes % 7.5 % (3.3-12.3); RBC Red Blood Cell Count 4.02 M/uL (3.86-4.86)
[2018-07-08 05:03] LABS: BUN Blood Urea Nitrogen 11 mg/dL (7-18); Bicarbonate 27 mmol/L (21-32); Glucose Level 103 mg/dL (74-106); Potassium 3.6 mmol/L (3.5-5.1); Sodium Level 142 mmol/L (136-145)
[2018-07-08] MEDS: CEFOXITIN/SWI 1gm 1 GM/10 ML SYR IV SCH (05:22)
[2018-07-08] MEDS: NA CHLORIDE 0.9% 1,000 ML IV SCH ×2 (05:22→10:00)
[2018-07-08 08:33] VITALS: O2SAT 92
[2018-07-08] MEDS ORDERED: PANTOPRAZOLE 40 MG INJ IVP SCH (09:00)
[2018-07-08 11:58] VITALS: BP 152/65; TEMP 97.6
--- NOTE | 2018-07-08 13:38 | P.DS ---
Admission Date: 07/07/18 Discharge Date: 07/08/18 Disposition: ROUTINE DISCHARGE Discharge Condition: GOOD Vital Signs/Physical Exam: Temp Pulse Resp BP Pulse Ox 97.6 F 68 15 152/65 H 98 07/08/18 11:57 07/08/18 11:57 07/08/18 11:57 07/08/18 11:57 07/08/18 11:57 General: Alert, Oriented x3, Cooperative HEENT: PERRLA, EOMI, Sclerae nonicteric Neck: Supple Gastrointestinal: Normal bowel sounds, Soft and benign Musculoskeletal: No erythema, No tenderness, No warmth Integumentary: No rashes, No erythema, No warmth, No cyanosis Neurological: Normal gait, Normal speech Laboratory Data at Discharge: WBC 7.7 K/uL (4.3-10.9) D 07/08/18 03:48 Hgb 12.1 g/dL (12.0-15.0) 07/08/18 03:48 Hct 35.6 % (36.0-45.0) L D 07/08/18 03:48 Plt Count 226 K/uL (152-406) 07/08/18 03:48 Sodium 142 mmol/L (136-145) 07/08/18 03:48 Potassium 3.6 mmol/L (3.5-5.1) 07/08/18 03:48 BUN 11 mg/dL (7-18) 07/08/18 03:48 Creatinine 0.44 mg/dL (0.55-1.3) L 07/08/18 03:48 Glucose 103 mg/dL (74-106) 07/08/18 03:48 Total Bilirubin 0.6 mg/dL (0.2-1.0) 07/07/18 09:25 AST 17 U/L (15-37) 07/07/18 09:25 ALT 22 U/L (12-78) 07/07/18 09:25 Alkaline Phosphatase 90 U/L (45-117) 07/07/18 09:25 Amylase 64 U/L (25-115) 07/07/18 09:25 Lipase 115 U/L (73-393) 07/07/18 09:25 Home Medications: Acetaminophen [Tylenol Extra Strength] 500 mg PO PRN PRN 07/07/18 Multivitamin [Multivitamins] 1 each PO DAILY 07/07/18 Codeine/APAP [Tylenol W/Codeine #3 tab] 1 tab PO Q4HP PRN #30 tab 07/08/18 Sulfamethoxazole/Trimethoprim [Bactrim Ds Tablet] 1 each PO Q4H #10 tablet 07/08 New Medications: Codeine/APAP [Tylenol W/Codeine #3 tab] 1 tab PO Q4HP PRN #30 tab PRN Reason: Pain Sulfamethoxazole/Trimethoprim [Bactrim Ds Tablet] 1 each PO Q4H #10 tablet Patient Discharge Instructions: keep area dry for 24h then may shower with dressing off. Place triple abx and bandaid over the incision after that. Followup: Kane Morales MD [ACTIVE - CAN ADMIT] - 1 Week
[2018-07-08] MEDS: HYDROCODONE/APAP 7.5/325 MG TAB PO PRN (14:13)
== END 2018-07-08 14:43 | disposition home or self-care (01) ==
LOC: OR 10:15 → 4TH 13:59
PROVIDERS: ADMIT Surgery; ATTEND Surgery
PROC: 0FT44ZZ Resection of Gallbladder, Percutaneous Endoscopic Approach (ICD-10-PCS; principal; 2018-07-07 12:45)
DX: K80.10 Calculus of gallbladder with chronic cholecystitis without obstruction (principal); K66.0 Peritoneal adhesions (postprocedural) (postinfection)
CPT/HCPCS: 96365 ×2; 96367 ×2; 93005; 85025 ×2; 80048 ×2; 36415; 82150; 80076; 88304; 83690; 71046; 47562; G0379; J0360; J2704; J2710; C9113; J3010; J2270 ×3; J1170 ×3; J2405 ×4; J7030 ×3; G0378; J2250

== ENCOUNTER 2020-08-29 01:05 | Emergency (ER) | payer OTHER ==
--- OUTSIDE RECORDS SUMMARY | 2020-08-29 01:07 | XMS REPORT | Continuity of Care Document ---
:1945 Author Organization [facility] t Address [address] [place] [address] Care Team Providers Name Role Phone Karen Olivarez Attending Clinician Problems This patient has no known problems. Allergies, Adverse Reactions, Alerts This patient has no known allergies or adverse reactions. Medications This patient has no known medications. Procedures This patient has no known procedures. Encounters Start End Encounter Admission Attending Care Care Encounter Source Date/Time Date/Time Type Type Clinicians Facility Department ID 2020-07-19 2020-07-19 Emergency Margaret [facility] [id number] 18:39:00 21:28:00 Neha Martinez [id number] [place] [id number] [place] [id number] Results This patient has no known results.
[2020-08-29 02:35] LABS: Absolute Lymphocytes (CBC) 1.7 K/uL (0.7-4.9); Basophils % 0.8 % (0-1.3); Hematocrit 32.8 % (36.0-45.0); Lymphocytes % 32.8 % (15.3-44.8); MPV 7.2 fL (7.6-11.3); RBC Red Blood Cell Count 3.65 M/uL (3.86-4.86)
[2020-08-29 02:43] LABS: BUN Blood Urea Nitrogen 12 mg/dL (7-18); Bicarbonate 25 mmol/L (21-32); Glucose Level 94 mg/dL (74-106); Sodium Level 127 mmol/L (136-145)
[2020-08-29] MEDS ORDERED: NA CHLORIDE 0.9% 1,000 ML ONE (03:28)
[2020-08-29] MEDS ORDERED: ACETAMINOPHEN 500 MG TAB ONE (03:31)
[2020-08-29] MEDS ORDERED: POTASSIUM 25 MEQ EFFERV TAB ONE (04:02)
--- NOTE | 2020-08-29 05:46 | ER ---
Nurse's Notes [facility] Name: Yoselin Blum Age: 74 yrs Sex: Female : 1945 Arrival Date: 08/29/2020 Time: :19 Bed 4 Private MD: Diagnosis: Fall-Mechanical;Alcohol Intoxication;Head Contusion;Hand Pain, Left;Chest Contusion Presentation: 08/29 01:19 Chief complaint: EMS states: Reports she was getting out of bed and tripped over her ea sock. Pt states left rib pain. Denies LOC. + ETOH about 5 to 6 beers. Coronavirus screen: At this time, the client does not indicate any symptoms associated with coronavirus-19. Ebola Screen: No symptoms or risks identified at this time. Initial Sepsis Screen: Does the patient meet any 2 criteria? No. Patient's initial sepsis screen is negative. Does the patient have a suspected source of infection? No. Patient's initial sepsis screen is negative. Risk Assessment: Do you want to hurt yourself or someone else? Patient reports no desire to harm self or others. Onset of symptoms was August 29, 2020. :19 Method Of Arrival: EMS: [facility] :19 Acuity: BARBI 3 ea 01:27 Care prior to arrival: None. Mechanism of Injury: Fall from standing position. Trauma ea event details: Injury occurred in the [facility], Injury occurred: at home. Injury occurred: August 29, 2020. Trauma Activation: Not Applicable Physician: ED Physician; Name: ; Notified At: ; Arrived At: Physician: General Surgeon; Name: ; Notified At: ; Arrived At: Physician: Radiology; Name: ; Notified At: ; Arrived At: Physician: Respiratory; Name: ; Notified At: ; Arrived At: Physician: Lab; Name: ; Notified At: ; Arrived At: Historical: - Allergies: :24 Aspirin; ea - PMHx: :24 seaosnal allergies; ea - Immunization history:: Adult Immunizations up to date. - Immunization history: Last tetanus immunization: - up to date. - Social history:: Smoking status: Patient denies any tobacco usage or history of. Screenin: Abuse screen: Denies threats or abuse. Nutritional screening: No deficits noted. ea Tuberculosis screening: No symptoms or risk factors identified. Fall Risk None identified. Primary Survey: 01:25 NO uncontrolled hemorrhage observed. A: The patient is alert. Airway: patent. ea Breathing/Chest: Respiratory pattern: regular, Respiratory effort: spontaneous. Circulation: Skin color: pink, Skin temperature: warm. Disability Alert. Exposure/Environment: A warming method has been applied: A warm blanket has been provided to the patient. 02:20 Reassessment Airway Airway Patent Breathing/Chest Respiratory pattern Regular ea Respiratory effort Spontaneous Unlabored Disability Alert. Assessment: 01:24 General: Appears uncomfortable, Behavior is appropriate for age. Pain: Complains of ea pain in left rib pain. Neuro: Level of Consciousness is awake, alert, obeys commands, Oriented to person, place, time. Cardiovascular: Patient's skin is warm and dry. Respiratory: Airway is patent Respiratory effort is even, unlabored, Respiratory pattern is regular, symmetrical. Derm: Skin is pink, warm \T\ dry. 02:21 Reassessment: Patient and/or family updated on plan of care and expected duration. Pain ea level reassessed. Patient is alert, oriented x 3, equal unlabored respirations, skin warm/dry/pink. 03:18 Reassessment: Patient and/or family updated on plan of care and expected duration. Pain ea level reassessed. Patient is alert, oriented x 3, equal unlabored respirations, skin warm/dry/pink. 04:41 Reassessment: Patient and/or family updated on plan of care and expected duration. Pain ea level reassessed. Pt resting with eyes closed, no s/s of pain or discomfort noted at this time. 05:10 Reassessment: Patient and/or family updated on plan of care and expected duration. Pain ea level reassessed. Pt resting with eyes closed, respirations even and unlabored. Chest expansions even and symmetrical. Awaiting on X-ray results. 05:45 Reassessment: pt daughter upset with Dr. Baker about not discussing any of the em radiology reports, states tylenol given is not enough, Dr. Baker instructed her he was waiting for the radiology report from radiologist, pt request to go to another hospital, will sign out AMA, pt wheeled out with daughter. 05:54 Reassessment: Patient and/or family updated on plan of care and expected duration. Pain ea level reassessed. Patient is alert, oriented x 3, equal unlabored respirations, skin warm/dry/pink. AMA form given to pt and family. Pt left ED via wheelchair per family. Pt tolerating well. Vital Signs: 01:19 BP 158 / 117; Pulse 68; Resp 18; Temp 97.8; Pulse Ox 100% ; Weight 72.57 kg; Height 5 ea ft. 3 in. (160.02 cm); 02:22 BP 141 / 72; Pulse 64; Resp 18; Pulse Ox 96% on R/A; ea 03:18 BP 145 / 78; Pulse 61; Resp 19; Temp 97.8; Pulse Ox 97% on R/A; ea 03:20 BP 110 / 77; Pulse 62; Resp 18; Pulse Ox 98% on R/A; ea 05:34 BP 116 / 57; Pulse 68; Resp 16; Pulse Ox 99% ; ea 01:19 Body Mass Index 28.34 (72.57 kg, 160.02 cm) ea [place] Coma Score: 01:26 Eye Response: spontaneous(4). Verbal Response: oriented(5). Motor Response: obeys ea commands(6). Total: 15. 02:22 Eye Response: spontaneous(4). Verbal Response: oriented(5). Motor Response: obeys ea commands(6). Total: 15. 03:18 Eye Response: spontaneous(4). Verbal Response: oriented(5). Motor Response: obeys ea commands(6). Total: 15. 03:20 Eye Response: spontaneous(4). Verbal Response: oriented(5). Motor Response: obeys ea commands(6). Total: 15. 05:35 Eye Response: spontaneous(4). Verbal Response: oriented(5). Motor Response: obeys ea commands(6). Total: 15. Trauma Score (Adult): 01:26 Eye Response: spontaneous(1); Verbal Response: oriented(1); Motor Response: obeys ea commands(2); Systolic BP: > 89 mm Hg(4); Respiratory Rate: 10 to 29 per min(4); [place] Score: 15; Trauma Score: 12 ED Course: 01:19 Patient arrived in ED. ea 01:22 Triage completed. ea 01:24 Arm band placed on right wrist. Patient placed in an exam room, on a stretcher, on ea pulse oximetry. 01:24 Patient has correct armband on for positive identification. Bed in low position. Call ea light in reach. 01:26 Patient maintains SpO2 saturation greater than 95% on room air. Thermoregulation: warm ea blanket given to patient. 01:28 Trang Krishna, RN is Primary Nurse. ea 01:36 Tejas Baker MD is Attending Physician. 7 02:14 XRAY Chest (1 view) In Process Unspecified. EDMS 02:14 XRAY Wrist LEFT 3 view In Process Unspecified. EDMS 02:17 Head C Spine Cap Wo Con CT In Process Unspecified. EDMS 03:27 Hand Left 3 View XRAY In Process Unspecified. EDMS 05:45 Hung Curran MD is Referral Physician. [facility] 05:57 No provider procedures requiring assistance completed. IV discontinued, intact, ea bleeding controlled, No redness/swelling at site. Pressure dressing applied. Administered Medications: 03:13 Drug: NS 0.9% 1000 ml Route: IV; Rate: 1000 ml; Site: left antecubital; ea 05:45 Follow up: Response: No adverse reaction; IV Status: Completed infusion; IV Intake: ea 1000ml 03:17 Drug: Tylenol 1000 mg Route: PO; ea 04:00 Follow up: Response: No adverse reaction ea 03:44 Drug: Potassium Effervescent Tablet 50 mEq Route: PO; ea 04:00 Follow up: Response: No adverse reaction ea Intake: 01:26 PO: 0ml; Total: 0ml. ea 05:45 IV: 1000ml; Total: 1000ml. ea Outcome: 05:57 AMA AMA form signed ea 05:58 Patient left the ED. ea Signatures: Dispatcher [employer] Rivera Giles, RN RN Trang Partida, RN Tejas Holloway ea, MD MD [facility]
--- NOTE | 2020-08-29 05:47 | EDPHYS ---
Physician Documentation [facility] Name: Yoselin Blum Age: 74 yrs Sex: Female : 1945 Arrival Date: 08/29/2020 Time: 01:19 Bed 4 Private MD: ED Physician Tejas Baker HPI: 08/29 02:15 This 74 yrs old Female presents to ER via EMS with complaints of Fall. [facility] 02:15 Details of fall: The patient fell from an upright position, while walking. Onset: The [facility] symptoms/episode began/occurred today. 02:15 Associated injuries: The patient sustained injury to the head, contusion, injury to the [facility] chest, specifically the left lower chest, contusion. 02:15 Severity of symptoms: At their worst the symptoms were mild, earlier today, in the [facility] emergency department the symptoms are unchanged. Patient admits to drinking ETOH. States that she got out of bed and tripped and fell onto a wooden floor. Denies LOC.. Historical: - Allergies: 01:24 Aspirin; ea - PMHx: 01:24 seaosnal allergies; ea - Immunization history:: Adult Immunizations up to date. - Immunization history: Last tetanus immunization: - up to date. - Social history:: Smoking status: Patient denies any tobacco usage or history of. ROS: 02:15 Constitutional: Negative for fever, chills, and weight loss, Eyes: Negative for injury, mh7 pain, redness, and discharge, ENT: Negative for injury, pain, and discharge, Neck: Negative for injury, pain, and swelling, Respiratory: Negative for shortness of breath, cough, wheezing, and pleuritic chest pain, Abdomen/GI: Negative for abdominal pain, nausea, vomiting, diarrhea, and constipation, Back: Negative for injury and pain, : Negative for injury, bleeding, discharge, and swelling. 02:15 Skin: Negative for injury, rash, and discoloration, Neuro: Negative for headache, mh7 weakness, numbness, tingling, and seizure, Psych: Negative for depression, anxiety, suicide ideation, homicidal ideation, and hallucinations, Allergy/Immunology: Negative for hives, rash, and allergies, Endocrine: Negative for neck swelling, polydipsia, polyuria, polyphagia, and marked weight changes, Hematologic/Lymphatic: Negative for swollen nodes, abnormal bleeding, and unusual bruising. 02:15 MS/extremity: Positive for pain, of the left hand. Exam: 02:15 Eyes: Pupils equal round and reactive to light, extra-ocular motions intact. Lids and mh7 lashes normal. Conjunctiva and sclera are non-icteric and not injected. Cornea within normal limits. Periorbital areas with no swelling, redness, or edema. ENT: Nares patent. No nasal discharge, no septal abnormalities noted. Tympanic membranes are normal and external auditory canals are clear. Oropharynx with no redness, swelling, or masses, exudates, or evidence of obstruction, uvula midline. Mucous membranes moist. Neck: Trachea midline, no thyromegaly or masses palpated, and no cervical lymphadenopathy. Supple, full range of motion without nuchal rigidity, or vertebral point tenderness. No Meningismus. 02:15 Cardiovascular: Regular rate and rhythm with a normal S1 and S2. No gallops, murmurs, or rubs. Normal PMI, no JVD. No pulse deficits. Respiratory: Lungs have equal breath sounds bilaterally, clear to auscultation and percussion. No rales, rhonchi or wheezes noted. No increased work of breathing, no retractions or nasal flaring. Abdomen/GI: Soft, non-tender, with normal bowel sounds. No distension or tympany. No guarding or rebound. No evidence of tenderness throughout. Back: No spinal tenderness. No costovertebral tenderness. Full range of motion. Skin: Warm, dry with normal turgor. Normal color with no rashes, no lesions, and no evidence of cellulitis. Neuro: Awake and alert, GCS 15, oriented to person, place, time, and situation. Cranial nerves II-XII grossly intact. Motor strength 5/5 in all extremities. Sensory grossly intact. Cerebellar exam normal. Normal gait. Psych: Awake, alert, with orientation to person, place and time. Behavior, mood, and affect are within normal limits. 02:15 Constitutional: The patient appears in no acute distress, alert, awake, Appears intoxicated 02:15 Head/face: Noted is contusion, that is superficial, of the forehead. 02:15 Chest/axilla: Inspection: normal, Palpation: tenderness, that is moderate, of the left lower chest, that totally reproduces the patient's complaints, Axilla: are normal, Lymph nodes: lymphadenopathy is not appreciated. 02:15 Musculoskeletal/extremity: Extremities: noted in the left hand: contusion, pain, tenderness, ROM: intact in all extremities, Circulation is intact in all extremities. Sensation intact. Compartment Syndrome exam of affected extremity: is normal. no numbness, no tingling, no sensation deficit, no palor, no weak pulses, Joints: All joints appear normal with full range of motion. Tendon exam: specific tendon testing normal through active and passive range of motion Vital Signs: 01:19 BP 158 / 117; Pulse 68; Resp 18; Temp 97.8; Pulse Ox 100% ; Weight 72.57 kg; Height 5 ea ft. 3 in. (160.02 cm); 02:22 BP 141 / 72; Pulse 64; Resp 18; Pulse Ox 96% on R/A; ea 03:18 BP 145 / 78; Pulse 61; Resp 19; Temp 97.8; Pulse Ox 97% on R/A; ea 03:20 BP 110 / 77; Pulse 62; Resp 18; Pulse Ox 98% on R/A; ea 05:34 BP 116 / 57; Pulse 68; Resp 16; Pulse Ox 99% ; ea 01:19 Body Mass Index 28.34 (72.57 kg, 160.02 cm) ea [place] Coma Score: 01:26 Eye Response: spontaneous(4). Verbal Response: oriented(5). Motor Response: obeys ea commands(6). Total: 15. 02:22 Eye Response: spontaneous(4). Verbal Response: oriented(5). Motor Response: obeys ea commands(6). Total: 15. 03:18 Eye Response: spontaneous(4). Verbal Response: oriented(5). Motor Response: obeys ea commands(6). Total: 15. 03:20 Eye Response: spontaneous(4). Verbal Response: oriented(5). Motor Response: obeys ea commands(6). Total: 15. 05:35 Eye Response: spontaneous(4). Verbal Response: oriented(5). Motor Response: obeys ea commands(6). Total: 15. Trauma Score (Adult): 01:26 Eye Response: spontaneous(1); Verbal Response: oriented(1); Motor Response: obeys ea commands(2); Systolic BP: > 89 mm Hg(4); Respiratory Rate: 10 to 29 per min(4); [place] Score: 15; Trauma Score: 12 MDM: 05:42 Differential diagnosis: abrasion, closed head injury, contusion, fracture. Data [facility] reviewed: vital signs, nurses notes, lab test result(s), CBC, electrolytes, radiologic studies, CT scan, plain films. Data interpreted: Pulse oximetry: on room air is 99 %. Interpretation: normal. Refusal of service: The patient/guardian displays adequate decision making capability and despite a detailed discussion of alternatives, benefits, risks, and consequences refuses:. ED course: refused to wait for complete test results. 05:46 Patient medically screened. [facility] 08/29 01:45 Order name: Basic Metabolic Panel; Complete Time: 03:00 tt3 08/29 01:45 Order name: CBC with Diff; Complete Time: 03:00 tt3 08/29 01:23 Order name: XRAY Chest (1 view) ea 08/29 01:45 Order name: Type And Screen; Complete Time: 03:33 tt3 08/29 04:44 Order name: ABO/RH no charge; Complete Time: 05:07 EDMS 08/29 01:24 Order name: XRAY Wrist LEFT 3 view ea 08/29 01:45 Order name: Labs collected and sent; Complete Time: 02:20 tt3 08/29 01:46 Order name: Head C Spine Cap Wo Con CT tt3 08/29 03:10 Order name: Hand Left 3 View XRAY [facility] Administered Medications: 03:13 Drug: NS 0.9% 1000 ml Route: IV; Rate: 1000 ml; Site: left antecubital; ea 05:45 Follow up: Response: No adverse reaction; IV Status: Completed infusion; IV Intake: ea 1000ml 03:17 Drug: Tylenol 1000 mg Route: PO; ea 04:00 Follow up: Response: No adverse reaction ea 03:44 Drug: Potassium Effervescent Tablet 50 mEq Route: PO; ea 04:00 Follow up: Response: No adverse reaction ea Disposition Summary: 08/29/20 05:46 Left Against Medical Advice Location: Home [facility] Problem: new [facility] Symptoms: have improved [facility] Condition: Stable [facility] Diagnosis - Fall-Mechanical mh7 - Alcohol Intoxication mh7 - Head Contusion mh7 - Hand Pain, Left mh7 - Chest Contusion [facility] Followup: 7 - With: Private Physician - When: 1 - 2 days - Reason: Worsening of condition, Recheck today's complaints, Continuance of care, Re-evaluation by your physician Followup: 7 - With: Hung Curran MD - When: 1 - 2 days - Reason: Worsening of condition, Recheck today's complaints Discharge Instructions: - Discharge Summary Sheet 7 - Alcohol Intoxication, [id number] [facility] - Fall Prevention in the Home, Adult, [id number] 7 - Head Injury, Adult, [id number] [facility] - Hand Pain 7 - Blunt Chest Trauma [facility] Signatures: Dispatcher [employer] EDMS Trang Krishna RN RN Tejas Coleman MD MD [facility] Edinson Cruz tt3 Corrections: (The following items were deleted from the chart) 02:19 01:24 Head C Spine MPR Wo Con+CT.RAD.BRZ ordered. EDMS EDMS 03:09 03:01 Chest Abdomen Pelvis W Con+CT.RAD.BRZ ordered. EDMS EDMS
[2020-08-29 06:06] VITALS: TEMP 97.8
[2020-08-29 06:12] VITALS: BP 116/57; O2SAT 99
--- NOTE | 2020-08-29 08:49 | RAD REPORT ---
EXAM DESCRIPTION: RAD - Wrist Left 3 View - 08/29/2020 2:14 am CLINICAL HISTORY: PAIN Pain COMPARISON: No comparisons FINDINGS: Soft tissue swelling is seen along the dorsum and ulnar aspect of the wrist. No fracture clearly seen. If pain persists, recommend followup CT or MR imaging of the wrist.
--- NOTE | 2020-08-29 08:52 | RAD REPORT ---
EXAM DESCRIPTION: RAD - Chest Single View - 08/29/2020 2:14 am CLINICAL HISTORY: RIB PAIN - LEFT Chest pain. COMPARISON: Chest Pa And Lat (2 Views) dated 07/07/2018; Chest Single View dated 05/03/2018; Chest Pa And Lat (2 Views) dated 05/01/2018; CHEST SINGLE VIEW dated 03/06/2014; Head C Spine Cap Wo Con dated FINDINGS: Portable technique limits examination quality. The lungs are grossly clear. The heart is normal in size. No displaced fractures. IMPRESSION: No acute intrathoracic process suspected.
--- NOTE | 2020-08-29 08:57 | RAD REPORT ---
EXAM DESCRIPTION: RAD - Hand Left 3 View - 08/29/2020 3:28 am CLINICAL HISTORY: trauma Trauma, pain COMPARISON: No comparisons FINDINGS: Significant first carpometacarpal joint arthritic changes are present. Radiocarpal joint a rthritis with moderate soft tissue swelling adjacent to the distal ulna. An acute fracture is not arnaud dent. If pain persists, MR or CT imaging would be recommended.
--- NOTE | 2020-08-29 13:05 | RAD REPORT ---
EXAM DESCRIPTION: 1. CT of the head without contrast 2. CT of the cervical spine without contrast. 3. CT of the chest, abdomen, and pelvis obtained without IV contrast CLINICAL HISTORY: PAIN COMPARISON: None available TECHNIQUE: Axial CT of the head obtained from the skull apex to the skull base without contrast. Axi al CT images of the cervical spine obtained from the skull base through the thoracic inlet. Sagittal and coronal reformatted images available. CT of the chest, abdomen, and pelvis obtained without IV co ntrast. Suboptimal evaluation of the vasculature and solid organs due to lack of iodinated contrast. This exam was performed according to our departmental dose-optimization program, which includes autom ated exposure control, adjustment of the mA and/or kV according to patient size and/or use of iterati ve reconstruction technique. FINDINGS: CT head: No acute intracranial hemorrhage identified. No mass, mass effect, shift of the midline, abnormal ext ra-axial fluid collection or CT evidence of acute ischemic change identified. The ventricular system is unremarkable. Scattered areas of hypodensity in the supratentorial white matter are nonspecific and may represent sequela of chronic small vessel ischemic change. Mucosal thickening of the paranasal sinuses. Mastoid air cells are well aerated. No skull fracture id entified. Visualized orbits and globes are unremarkable. Cervical CT: Alignment of the cervical spine is maintained without evidence of subluxation. The atlantoaxial, at lantodental, and occipitoatlantal intervals are preserved. No fracture identified. Vertebral body h eight preserved. Prevertebral soft tissues are unremarkable. Axez-ed-ukqigubt multilevel endplate spondylosis, facet arthropathy, and uncovertebral spurring. Visualized skull base is intact. No fracture of the visualized facial bones. Visualized mastoid air c ells and paranasal sinuses are well aerated. Visualized thyroid is unremarkable. No cervical lymphadenopathy. No pneumothorax in the visualized lung apices. Carotid artery atherosclerosis. Chest: Thyroid: No abnormalities of the visualized thyroid. Great Vessels: Great vessels have normal anatomic configuration. Thoracic Aorta: Atherosclerotic calcification of the thoracic aorta. Pulmonary arteries: The main pulmonary artery is not dilated. Heart: No cardiomegaly, significant pericardial effusion, or coronary artery atherosclerosis Lymph Nodes: No enlarged mediastinal lymph nodes identified. Esophagus: No abnormalities of the esophagus identified Other: No additional findings. Lungs: Minimal bilateral dependent atelectasis. No confluent airspace consolidation. Pleura: No pleural effusion or pneumothorax. Trachea/Airways: No abnormalities of the visualized trachea or airways. Abdomen: Liver: The liver has normal size and decreased density. Gallbladder: Prior cholecystectomy. Spleen, Pancreas, and Adrenal Glands: The spleen, pancreas, and adrenal glands are unremarkable. Kidneys: Mild bilateral hydroureter and hydronephrosis without obstructing calculus identified. Vasculature: Aortoiliac atherosclerosis. IVC is unremarkable. Stomach: The stomach and duodenum have normal course. Other: No free intraperitoneal air. No free fluid or lymphadenopathy. Pelvis: Bladder: Urinary bladder is distended and otherwise. Bowel: No dilated loops of large or small bowel. Scattered diverticula of the colon. Appendix: Normal appendix. Pelvis: Prior hysterectomy. Bones: Redemonstrated compression deformities of L1 and L3. Remaining vertebral body height is preser ky. Osteopenia. Mild multilevel endplate spondylosis and facet arthropathy. Osteoarthritic change of the hips and shoulders. No acute fractures identified. IMPRESSION: 1. No acute intracranial findings. 2. No acute fracture or subluxation of the cervical spine. 3. Mild bilateral hydroureter and hydronephrosis without obstructing calculus identified. This may be related to urinary bladder distention. 4. Hepatic steatosis. 5. Diverticulosis without evidence of acute diverticulitis. 6. No acute traumatic injuries identified in the chest, abdomen, or pelvis. Electronically signed by: Baryon Danielson 08/29/2020 2:57 AM CDT Due to temporary technical issues with the PACS/Fluency reporting system, reports are being signed by the in house radiologist without review as a courtesy to ensure prompt reporting. The interpreting r adiologist is fully responsible for the content of the report.
== END 2020-08-29 05:58 | disposition left against medical advice (07) ==
LOC: ER 01:05
DX: S00.83XA Contusion of other part of head, initial encounter (principal); F10.129 Alcohol abuse with intoxication, unspecified; S20.219A Contusion of unspecified front wall of thorax, initial encounter; M79.642 Pain in left hand; W01.0XXA Fall on same level from slipping, tripping and stumbling without subsequent striking against object, initial encounter; Y93.01 Activity, walking, marching and hiking; Z88.6 Allergy status to analgesic agent
CPT/HCPCS: 96361; 85025; 80048; 36415; 86900; 86850; 86901; 70450; 71250; 72125; 71045; 73130; 73110; 96360; 99284; J7030

== ENCOUNTER → 2021-08-08 | Day surgery (SDC) | payer OTHER ==
--- NOTE | 2021-08-09 11:29 | RAD REPORT ---
EXAM DESCRIPTION: US - BREAST/AXILLA, LIMITED - 08/08/2021 10:49 am CLINICAL HISTORY: ICD N63.10. COMPARISON: Ultrasound July 31, 2021. TECHNIQUE: Sonographic evaluation of the periareolar region of the left breast was performed. FINDINGS: The patient presented for an ultrasound-guided core biopsy of the right breast. Real-time sonographic evaluation of the outer periareolar region of the right breast demonstrates wha t appears to be prominent ducts rather than a mass. Consequently the breast biopsy was not performed. No posterior shadowing is visualized. IMPRESSION: 1. On today's examination the previously described lesion within the outer periareolar r egion of the right breast has the appearance of a fluid-filled normal ducts rather than a mass. It is recommended that the patient have a follow-up ultrasound in 3 months for re-evaluation. 2. BI-RADS category 3, probably benign.
== END ==
LOC: DS 08:49
PROVIDERS: ATTEND Family Medicine
DX: N63.10 Unspecified lump in the right breast, unspecified quadrant (principal)
CPT/HCPCS: 76642

== ENCOUNTER → 2023-12-11 | Day surgery (SDC) | payer OTHER ==
[2023-12-10 10:45] LABS: Absolute Eosinophils 0.3 K/uL (0-0.5); Absolute Lymphocytes (CBC) 1.2 K/uL (0.7-4.9); Absolute Monocytes 0.4 K/uL (0.1-1.3); Absolute Neutrophil 2.2 K/uL (1.8-8.0); Basophils % 1.2 % (0-1.3); Eosinophils % 7.8 % (0-4.4); Hematocrit 38.1 % (36.0-45.0); Hemoglobin 12.7 g/dL (12.0-15.0); Lymphocytes % 29.2 % (15.3-44.8); MCH 30.4 pg (27.0-35.0); MCHC 33.3 g/dL (32.0-36.0); MCV 91.2 fL (80-100); MPV 7.7 fL (7.6-11.3); Monocytes % 9.5 % (3.3-12.3); Neutrophils % 52.3 % (41.7-73.7); Nucleated Red Blood Cells % 0.1 % (0-0); Platelets 290 thou/uL (152-406); RBC Red Blood Cell Count 4.18 M/uL (3.86-4.86); Red Cell Distribution Width 12.4 % (12.1-15.2)
[2023-12-10 10:48] LABS: PT Prothrombin Time 11.6 SECONDS (9.4-12.5); PTT, Activated Partial Thromb 34.3 SECONDS (24.3-36.9); Protime INR 1.04
[2023-12-10 11:15] LABS: Anion Gap 7.8 mEq/L (5.0-15.0); Potassium 3.8 mEq/L (3.5-5.1)
[~2023-12-11] MED LIST: LIDOCAINE 1% MPF 5 ML VIAL ONE; Ringers Lactate 1,000 ML IV ONE; propofoL 200 MG/20 ML VIAL IV ONE
[2023-12-11 09:37] VITALS: O2SAT 98
[2023-12-11 09:47] VITALS: TEMP 97.3
[2023-12-11 09:49] VITALS: BP 154/60
== END ==
LOC: OR 12-10 10:06
PROVIDERS: ATTEND Surgery
PROC: 0DJD8ZZ Inspection of Lower Intestinal Tract, Via Natural or Artificial Opening Endoscopic (ICD-10-PCS; principal; 2023-12-11 07:30)
DX: R10.9 Unspecified abdominal pain (principal); K64.8 Other hemorrhoids; K64.4 Residual hemorrhoidal skin tags; K57.30 Diverticulosis of large intestine without perforation or abscess without bleeding
CPT/HCPCS: 85025; 80048; 36415; 85610; 85730; 45378; J2704; J2001; J7120

== ENCOUNTER 2023-12-23 08:44 | Inpatient (IN) | payer OTHER ==
[2023-12-23] MEDS ORDERED: propofoL 200 MG/20 ML VIAL IV ONE (08:58)
[2023-12-23] MEDS ORDERED: MIDAZOLAM HCL 2 MG/2 ML INJ ONE (08:58)
[2023-12-23] MEDS ORDERED: FENTANYL CITR 100 MCG/2 ML ONE ×2 (08:58→11:36)
[2023-12-23] MEDS ORDERED: LIDOCAINE 1% MPF 5 ML VIAL ONE (08:58)
[2023-12-23] MEDS ORDERED: ONDANSETRON 4 MG/2 ML VIAL ONE (08:58)
[2023-12-23] MEDS ORDERED: ROCURONIUM 50 MG/5 ML VIAL IV ONE (08:59)
[2023-12-23] MEDS: Ringers Lactate 1,000 ML IV ONE ×2 (09:40→13:41)
[2023-12-23] MEDS: CEFAZOLIN SODIUM 1 GM/VIAL ONE (11:15)
[2023-12-23] MEDS ORDERED: EPHEDRINE SULF 50 MG/ML VIAL ONE (12:06)
[2023-12-23] MEDS ORDERED: MORPHINE 10 MG/ML VIAL ONE (13:11)
[2023-12-23] MEDS: ONDANSETRON 4 MG/2 ML VIAL ONE (13:42)
--- NOTE | 2023-12-23 13:42 | P.BOP ---
Preoperative diagnosis: Lower abd pain, intermittent postprandial blooatin,, nausea, bowel cramps Postoperative diagnosis: same plu extensive intrabdominal adhesion, bowel stricture/obstructions Primary procedure: Exploratory laparotomy, small bowel resection with anastomosis Secondary procedure: Extensive intrabdominal adhesions, Diagnostic laparoscopy Heart Surgeon: Cori Ordoñez ([place]) Estimated blood loss: <50cc Specimen: sb Findings: multiple bowel loops x 3 with adhesions, strictures with prox distention Anesthesia: General Complications: None Drain(s): Nasogastric, Urinary catheter Transferred to: Recovery Room Condition: Good
[2023-12-23] MEDS ORDERED: SODIUM CHLORIDE 0.9% 10ML INJ IV PRN (13:43)
[2023-12-23] MEDS: HYDROMORPHONE HCL 1 MG/ML INJ ONE (13:43)
[2023-12-23] MEDS: NA CHLORIDE 0.9% 1,000 ML IV SCH (14:00)
[2023-12-23] MEDS: MORPHINE 4 MG/ML SYR ONE (14:18)
[2023-12-23] MEDS: FENTANYL CITR 100 MCG/2 ML ONE (14:28)
--- OUTSIDE RECORDS SUMMARY | 2023-12-23 15:17 | XMS REPORT | Continuity of Care Document ---
Author Name Unknown Address [address] [facility] [address] [place] [address] [facility] thconnect Address [address] [facility] [place] [address] Care Team Providers Care Rib Stiffener And Heel Dipper Name Role Phone Ruiz Kang Primary Care Physician [phone] Mary Rao RN Attending Clinician Unavailable MINGO VALDEZ Attending Clinician Unav ailable MINGO VALDEZ Attending Clinician Unav ailable Carmelina Vick MD Attending Clinician + Mary Perez MD Attending Clinician [phone] Mingo Valdez MD Attending Clinician + Isi Olivarez Attending Clinician [phone] ISI MCMAHAN Attending Clinician Unavailable MARY PEREZ Admitting Clinician Unavailable Mary Perez MD Admitting Clinician [phone] Payers Payer Name Policy Type Policy Number Effective Date Expirati on Date Source Problems Condition Name Condition Details Condition Category Status Onset Date Resolution Date Last Treatment Date Treating Clinician Comments Source Numbness Numbness Disease Active 10-12 00:00: 00 [facility] No known active problems No known active problems Disease [facility] Allergies, Adverse Reactions, Alerts Allergy Name Allergy Type Status Severity Reaction(s) Onset Date Inactive Date Treating Clinician Comments Source Aspirin Propensi ty to adverse reaction s Active Unknown - See comments 04-06 00:00: 00 [facility] ASPIRIN DRUG INGREDI Active Unknown-Cmnt 04-06 00:00: 00 [facility] Social History Social Habit Start Date Stop Date Quantity Comments Source Exposure to SARS-CoV-2 (event) Not sure [facility] History of tobacco use Cigarette Smoker [facility] of Social function 2023-10-14 00:00:00 2023-10-14 00:00:00 [facility] Sex assigned at 1945 00:00:00 1945 00:00:00 [facility] Smoking Status Start Date Stop Date Source Smokes tobacco daily 2023-10-13 00:00:00 [facility] Unknown if ever smoked [facility] Medications Ordered Medication Name Filled Medication Name Start Date Stop Date Current Medication? Ordering Clinician Indication Dosage Frequency Signature (SIG) Comments Components Source clopidogreL 75 mg tablet 10-14 00:00: 00 10-13 00:00 :00 Yes [id number] 75mg Take 1 tablet by mouth in the morning. [facility] losartan (COZAAR) tablet 25 mg 10-13 16:45: 00 Yes 25mg 25 mg, Oral, DAILY, First dose (after last modificati on) on Sat10/14/23 at 1145, Until Discontinu ed, STEPHEN [facility] perflutren protein-A microsphr (OPTISON) injection 3 mL 10-13 14:30: 00 10-13 14:30 :00 No [id number] 3mL 3 mL, IV Push, ONCE, 1 dose, On Sat10/14/23 at 0930, Routine [facility] Saline Bubble Study 10-13 14:27: 01 Yes [id number] 6mL 6 mL, Injection, SEE-INSTRU CTIONS, Starting on Sat10/14/23 at 0927, Until Discontinu ed, Routine [facility] clopidogreL (PLAVIX) 75 mg tablet 75 mg 10-13 14:00: 00 Yes 75mg 75 mg, Oral, DAILY, First dose on Sat10/14/23 at 0900, Until Discontinu ed, Routine [facility] enoxaparin (LOVENOX) injection 40 mg 10-13 14:00: 00 Yes 40mg 40 mg, Subcutaneo us, DAILY, First dose on Sat10/14/23 at 0900, Until Discontinu ed, [facility] acetaminoph en (TYLENOL) tablet 500 mg 10-13 07:51: 53 Yes 500mg 500 mg, Oral, Q6HPRN, Starting on Sat10/14/23 at 0251, Until Discontinu ed, Routine, Pain (scale 1-3), Pain (scale 4-6), Temp > 38 C [facility] atorvastati n (LIPITOR) tablet 40 mg 10-13 02:00: 00 Yes 40mg 40 mg, Oral, QHS, First dose on Sat10/13/23 at 2100, Until Discontinu ed, [facility] clopidogreL (PLAVIX) 300 mg tablet 300 mg 10-13 00:30: 00 10-13 00:42 :00 No 300mg 300 mg, Oral, ONCE, 1 dose, On Sat10/13/23 at 1930, Routine [facility] ondansetron (ZOFRAN ODT) 4 mg disintegrat ing tablet 10-13 00:00: 00 Yes [id number] 4mg Take 1 tablet by mouth every 8 (eight) hours as needed for Nausea and Vomiting (N/V). [facility] atorvastati n 40 mg tablet 10-13 00:00: 00 10-13 00:00 :00 Yes [id number] 40mg Take 1 tablet by mouth at bedtime. [facility] labetaloL (NORMODYNE) 5 mg/mL injection 10 mg 10-12 23:28: 32 Yes 10mg [facility] acetaminoph en (TYLENOL) tablet 1,000 mg 10-12 19:30: 00 10-12 19:21 :00 No 1000mg 1,000 mg, Oral, ONCE, 1 dose, On Sat10/13/23 at 1430, STEPHEN [facility] iopamidol (ISOVUE 370-500 mL) injection 90 mL 10-12 15:58: 00 10-12 16:00 :00 No [id number] 90mL 90 mL, Intravenou s, ONCE, 1 dose, On Sat10/13/23 at 1100, Routine [facility] NaCl 0.9% (NS) injection 5 mL 10-12 15:48: 26 Yes 5mL 5 mL, Slow IV Push, PRN - SEE INSTRUCTIO NS, Starting on Sat10/13/23 at 1048, Until Discontinu ed, 10 mL [facility] cefTRIAXone (ROCEPHIN) 1,000 mg in NaCl 0.9% (NS) 50 mL MINI-BAG 07-20 02:30: 00 07-20 02:03 :00 No 1000mg 1,000 mg, IV Piggyback, ONCE, 1 dose, 07/19/20 at 2130, 50 mL
Reas on for Anti-Infec tive: Documented Infection< br>Documen noel Infection Site: Urine
D uration of Therapy: Other (see Comments) [facility] acetaminoph en (TYLENOL) tablet 1,000 mg 07-20 01:30: 00 07-20 00:31 :00 No 1000mg 1,000 mg, Oral, ONCE NOW, 1 dose, 07/19/20 at 2030, Routine [facility] NaCl 0.9% (NS) bolus infusion 1,000 mL 07-20 00:30: 00 07-20 02:00 :00 No 1000mL at 999 mL/hr, 1,000 mL, IV Infusion, ONCE, 1 dose, 07/19/20 at 1930, [facility] cefpodoxime 200 mg tablet 07-19 00:00: 00 07-27 04:59 :00 No [id number] 200mg Take 1 tablet by mouth 2 (two) times daily for 7 days. [facility] cephALEXin (KEFLEX) 500 mg capsule 04-06 00:00: 00 10-13 00:00 :00 No 500mg Take 1 Cap by mouth 3 (three) times daily. [facility] ondansetron (ZOFRAN ODT) 4 mg disintegrat ing tablet 04-06 00:00: 00 10-13 00:00 :00 No 4mg Take 1 Tab by mouth every 8 (eight) hours as needed for Nausea and Vomiting (N/V). [facility] Vital Signs Vital Name Observation Time Observation Value Comments S ource Systolic blood pressure 2023-10-14 16:20:00 149 mm[Hg] [facility] Diastolic blood pressure 2023-10-14 16:20:00 76 mm[Hg] [facility] Heart rate 2023-10-14 16:20:00 62 /min [facility] Body temperature 2023-10-14 16:20:00 36.78 Kayla [facility] Respiratory rate 2023-10-14 16:20:00 17 /min [facility] Oxygen saturation in Arterial blood by Pulse oximetry 2023-10-14 16:20:00 98 /min [facility] Body weight 2023-10-13 15:24:00 67.087 kg [facility] BMI 2023-10-13 15:24:00 27.05 kg/m2 [facility] Body height 2023-10-13 15:24:00 157.5 cm [facility] Systolic blood pressure 2020-07-20 02:00:00 143 mm[Hg] [facility] Diastolic blood pressure 2020-07-20 02:00:00 52 mm[Hg] [facility] Heart rate 2020-07-20 02:00:00 68 /min [facility] Body temperature 2020-07-20 02:00:00 36.72 Kayla [facility] Respiratory rate 2020-07-20 02:00:00 16 /min [facility] Oxygen saturation in Arterial blood by Pulse oximetry 2020-07-20 02:00:00 99 /min [facility] Body height 2020-07-19 23:22:00 157.5 cm [facility] Body weight 2020-07-19 23:22:00 63.504 kg [facility] BMI 2020-07-19 23:22:00 25.61 kg/m2 [facility] Systolic blood pressure 2020-07-20 02:00:00 143 mm[Hg] [facility] Diastolic blood pressure 2020-07-20 02:00:00 52 mm[Hg] [facility] Heart rate 2020-07-20 02:00:00 68 /min [facility] Body temperature 2020-07-20 02:00:00 36.72 Kayla [facility] Respiratory rate 2020-07-20 02:00:00 16 /min [facility] Oxygen saturation in Arterial blood by Pulse oximetry 2020-07-20 02:00:00 99 /min [facility] Body height 2020-07-19 23:22:00 157.5 cm [facility] Body weight 2020-07-19 23:22:00 63.504 kg [facility] BMI 2020-07-19 23:22:00 25.61 kg/m2 [facility] Procedures Procedure Date / Time Performed Performing Clinician Source TRANSTHORACIC ECHO (TTE) COMPLETE W/ CONTRAST 2023-10-14 14:26:29 [facility] MR STROKE BRAIN WO CONTRAST 2023-10-14 04:49:00 [facility] URINALYSIS 2023-10-13 16:21:00 Carmelina Vick [facility] TROPONIN I 2023-10-13 16:05:00 Carmelina Vick [facility] BASIC METABOLIC PANEL (NA, K, CL, CO2, GLUCOSE, BUN, CREATININE, CA) 2023-10-13 16:05:00 Carmelina Vick [facility] LIPID PANEL (43958)(TOTAL CHOLESTEROL, TRIGLYCERIDES, HDL) 2023-10-13 16:05:00 Ike Carver [facility] CBC WITHOUT DIFF 2023-10-13 16:05:00 Carmelina Vick [facility] GLYCOSYLATED HEMOGLOBIN (A1C) 2023-10-13 16:05:00 Ike Carver [facility] PROTHROMBIN TIME / INR 2023-10-13 16:05:00 Carmelina Long [facility] ACTIVATED PARTIAL THRMPLAS ELIDA 2023-10-13 16:05:00 Carmelina Vick [facility] CT STROKE ANGIOGRAM HEAD 2023-10-13 15:58:19 Carmelina Pereyra [facility] CT STROKE ANGIOGRAM NECK 2023-10-13 15:58:19 Carmelina Pereyra [facility] CT STROKE HEAD WO CONTRAST 2023-10-13 15:57:00 Carmelina Vick [facility] POCT GLUCOSE(AGE >30DAYS) 2023-10-13 15:50:00 Carmelina Vick [facility] POCT GLUCOSE (AUTOMATED) 2023-10-13 15:49:00 Carmelina Pereyra [facility] HB ECG ROUTINE & RHYTHM STRIP 2023-10-13 15:47:57 Carmelina Vick [facility] COMP. METABOLIC PANEL (53722) 2020-07-20 00:47:00 Isi Mcmahan [facility] CBC WITH DIFF 2020-07-20 00:47:00 Isi Mcmahan [facility] LACTIC ACID WHOLE BLOOD 2020-07-20 00:47:00 Me sean Mcmahan [facility] COVID-19 (ID NOW RAPID TESTING) 2020-07-20 00:42:00 Isi Mcmahan [facility] URINALYSIS 2020-07-20 00:35:00 Isi Mcmahan [facility] XR CHEST 1 VW 2020-07-20 00:31:10 Isi Mcmahan [facility] CONSENT/REFUSAL FOR DIAGNOSIS AND TREATMENT 2020-07-19 23:13:27 Doctor Unassigned, [place] [facility] NOTICE OF PRIVACY PRACTICES 2020-07-19 23:13:09 Doctor Unassigned, [place] [facility] Encounters Start Date/Time End Date/Time Encounter Type Admission Type Attending Clinicians Care Facility Care Department Encounter ID Source 2023-10-15 00:00:00 2023-10-15 14:52:45 Transition of Care Mary Rao [id number] [facility] 2023-10-13 10:25:00 2023-10-14 18:00:00 Outpatient X MINGO VALDEZ [facility] [id number] [facility] 2023-10-13 10:25:00 2023-10-14 18:00:00 Emergency Nava , Carmelina Perez, Mingo Cliftoneshan [facility] [id number] [facility] 2020-07-19 18:39:00 2020-07-19 21:28:00 Emergency Isi Mcmahan [facility] [id number] [facility] 2020-07-19 18:39:00 2020-07-19 21:28:00 Emergency Isi Mcmahan [facility] [id number] 2020-07-19 18:39:00 2020-07-19 18:39:00 Emergency X ISI MCMAHAN [facility] [id number] [facility] Results Test Description Test Time Test Comments Results Result Co mments Source [facility] [id number] 15:12:59 MR STROKE BRAIN WO CONTRAST COMPARISON: CT head dated 10/13/2023. HISTORY: Acute onset left-sided numbness. TECHNIQUE: Multiplanar multisequence MRI brain without contrast wasperformed. FINDINGS: Sulci and ventricles are unchanged. There is no restricted diffusion to suggest acute ischemia. .Multiple bilateral T2/FLAIR hyperintense signals in the basal ganglia andthe bilateral obie represent chronic lacunar infarcts. Additionallymultiple punctate focal T2 hyperintense signals in the bilaterally basalganglia which suppresses with FLAIR represents prominent perivascularspaces versus developing encephalomalacia. 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.[facility] Glycosyated Hemoglobin (A1C)2023-10-14 01:03:59* Test Item Value Reference Range Interpretation Comme nts HGB A1C (test code = 4548-4) 5.3 % 4.0-5.7 CYNTHIA (test code = CYNTHIA) Reference RangesNormal: <5.7%Prediabetes: 5.7 - 6.4%Diabetes: > 6.5% Lab Interpretation (test code = 42122-3) Normal [facility] Lipd Panel (40462)(TOTAL CHOLESTEROL, TRIGLYCERIDES, HDL)2023-10-13 23:53:44* Test Item Value Reference Range Interpretation Comme nts CHOL (test code = 4803888110) 190 mg/dL 120-200 HDL (test code = 7106261916) 99 mg/dL >=50 HDLC RATIO (test code = 7081296284) 1.9 <=4.5 TRIG (test code = 2355981722) 101 mg/dL 30-170 LDL CHOL (test code = 95997-9) 71 mg/dL <=160 VLDL (test code = 0720798609) 20 mg/dL 5-60 Lab Interpretation (test cod e = 07685-6) Normal [facility] ANGIO[facility] [id number] 16:57:55CT STROKE ANGIOGRAM NECK, CT STROKE ANGIOGRAM HEAD HISTORY: Female 77 years Neuro deficit, acute, stroke suspected Rad: pleaseobtain POCT creatinine prior to CTA head/neck COMPARISON: None TECHNIQUE:Routine CTA head and neck were obtained following theadministration of 80 mL IV Isovue FINDINGS: CTA head: The PICA origin is visualized on the right. A left AICA-PICA variant issuspected. The basilar artery is patent. The superior cerebellar arteriesare patent. The posterior cerebral arteries are patent. origin of theleft RECORD CLERK is noted. A large right posterior communicating artery is present. The distal cervical, petrous, cavernous and supraclinoid internal carotidartery segments are patent. The anterior and middle cerebral arteries are patent. The dural venous sinuses are patent. Severe inflammatory changes and polyposis are noted in the paranasal airsinuses. CTA NECK: The left common carotid artery shares a common origin from the arch withthe innominate artery. Mild atherosclerotic plaque is seen in the arch andarch vessel origins without significant luminal narrowing. The innominateand subclavian arteries are patent. The common carotid arteries, carotid bulbs and cervical internal carotidarteries are widely patent. The vertebral arteries are patent from their subclavian origins through thevertebrobasilar junction.[facility] STR[facility] [id number] 16:57:55CT STROKE ANGIOGRAM NECK, CT STROKE ANGIOGRAM HEAD HISTORY: Female 77 years Neuro deficit, acute, stroke suspected Rad: pleaseobtain POCT creatinine prior to CTA head/neck COMPARISON: None TECHNIQUE: Routine CTA head and neck were obtained following theadministration of 80 mL IV Isovue FINDINGS: CTA head: The PICA origin is visualized on the right. A left AICA-PICA variant issuspected. The basilar artery is patent. The superior cerebellar arteriesare patent. The posterior cerebral arteries are patent. origin of theleft RECORD CLERK is noted. A large right posterior communicating artery is present. The distal cervical, petrous, cavernous and supraclinoid internal carotidartery segments are patent. The anterior and middle cerebral arteries are patent. The dural venous sinuses are patent. Severe inflammatory changes and polyposis are noted in the paranasal airsinuses. CTA NECK: The left common carotid artery shares a common origin from the arch withthe innominate artery. Mild atherosclerotic plaque is seen in the arch andarch vessel origins without significant luminal narrowing. The innominateand subclavian arteries are patent. The common carotid arteries, carotid bulbs and cervical internal carotidarteries are widely patent. The vertebral arteries are patent from their subclavian origins through thevertebrobasilar junction.[facility] I - Code [id number] 16:31:47* Test Item Value Reference Range Interpretation Comme [facility] TROPONIN I (test code = 8320706146) 0.004 ng/mL <=0.034 CYNTHIA (test code = CYNTHIA) Reference (Normal) Range (defined by the 99th percentile reference limit): <= 0.034 ng/mL Note: Cardiac troponin begins to rise 3-4 hours after the onset of ischemia. Repeat in 4-6 hours if the sample was drawn within 3-4 hours of the onset of the symptom and found normal. Diagnosis of myocardial injury is made with acute changes in cTn concentrations with at least one serial sample above the 99th percentile upper reference limit (URL), taken together with the patient's clinical presentation. Biotin has been reported to cause a negative bias, interpret results relative to patient's use of biotin. Lab Interpretation (test code = 88062-9) Normal [facility]thrombin Time / INR - Code [id number] 16:27:35* Test Item Value Reference Range Interpretation Comme [facility] PROTIME PATIENT (test code = 5964-2) 9.9 10.1-12.6 L INR (test code = 6301-6) 0.8 Normal INR <1.1; Warfarin Therapeutic range 2.0 to 3.0 or 2.5 to 3.5, depending upon the indications. Lab Interpretation (test code = 27518-5) Abnormal [facility]PTT - Code [id number] 16:26:09* Test Item Value Reference Range Interpretation Comme [facility] APTT Patient (test code = 3173-2) 31 26-36 CYNTHIA (test code = CYNTHIA) The [facility] patient population mean normal value for aPTT is 30 seconds. Lab Interpretation (test code = 25309-8) Normal [facility] Metabolic Panel (NA, K, CL, CO2, Glucose, BUN, Creatinine, CA) - Code [id number] 16:19:50* Test Item Value Reference Range Interpretation Comme [facility] NA (test code = 1295428967) 136 mmol/L 135-145 K (test code = 5738354431) 4.0 mmol/L 3.5-5.0 CL (test code = 8532068606) 97 mmol/L 98-108 L CO2 TOTAL (test code = 5493105679) 28 mmol/L 23-31 AGAP (test code = 7436532061) 11 2-16 BUN (test code = 6990446887) 18 mg/dL 7-23 GLUCOSE (test code = 8716904295) 109 mg/dL 70-110 CREATININE (test code = 2160-0) 0.58 mg/dL 0.50-1.04 CALCIUM (test code = 6071157433) 10.0 mg/dL 8.6-10.6 eGFR (test code = 65635-9) 92.8 mL/min/1.73m2 CKD-EPI eGFR (2020). Assuming creatinine has been stable day-to-day for at least three months, the eGFR indicates Category G1 (>= 90 mL/min/1.73 m2) Lab Interpretation (test code = 57713-1) Abnormal [facility]CB without Diff - Code [id number] 16:09:47* Test Item Value Reference Range Interpretation Comme nts WBC (test code = 6690-2) 6.31 4.30-11.10 RBC (test code = 789-8) 4.17 3.93-5.25 HGB (test code = 718-7) 13.3 g/dL 11.6-15.0 HCT (test code = 4544-3) 39.3 % 35.7-45.2 MCH (test code = 785-6) 31.9 pg 25.9-32.8 MCV (test code = 787-2) 94.2 fL 80.6-95.5 MCHC (test code = 786-4) 33.8 g/dL 31.6-35.1 PLT (test code = 777-3) 306 166-358 MPV (test code = 23122-7) 9.0 fL 9.5-12.9 L RDW-CV (test code = 788-0) 12.2 % 12.0-15.5 RDW-SD (test code = 61758-5) 42.2 fL 39.0-49.9 NRBC x10^3 (test code = 9307045026) See_Comment [Automated Kartela] The system which generated this result transmitted reference range: 10*3/?L. The reference range was not used to interpret this result as normal/abnormal. NRBC/100 WBC (test code = 5017111543) 0.0 0.0-10.0 IPF % (test code = 5755439576) Lab Interpretation (test code = 76763-2) Abnormal [facility] ACUTE STROKE HEAD WO [id number] 16:02:23CT STROKE HEAD WO CONTRAST HISTORY: Female 77 years Neuro deficit, acute, stroke suspected COMPARISON: None TECHNIQUE: Routine CT head without contrast FINDINGS: The ventricles and cerebral sulci arenormal in caliber and configuration.No hydrocephalus, midline shift or pathological extra-axial flui dcollection is present. The basal cisterns are unremarkable. No acute intracranial hemorrhage or mass effect is present. The reno-whitematter differentiation is preserved. Age indeterminate lacunar infarcts arenoted involving the left caudate head and anterior limb internal capsuleand the right anterior limb internal capsule. No additional significantparenchymal attenuation abnormality is present. 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 The calvariumand skull base are otherwise unremarkable. The mastoid air cells are clear.Severe inflammatory changes and possibly polyposis are seen in thepartially visualized paranasal air sinuses.[facility] POCT GLUCOSE (AUTOMATED)2023-10-13 15:50:07* Test Item Value Reference Range Interpretation Comme nts POCT GLU (test code = 2031285371) 99 mg/dL 70-110 Lab Interpretation (test cod e = 49794-5) Normal [facility]POIA Glucose (Age >30 Days) - Code Stroke 2023-10-13 15:50:00* Test Item Value Reference Range Interpretation Comme nts POCT Glu (age>30days) (test code = 3342) 99 mg/dL 70-110 Lab Interpretation (test cod e = 17154-4) Normal [facility]COMP. METABOLIC PANEL (37175)2020-07-20 01:12:14* Test Item Value Reference Range Interpretation Comme nts NA (test code = 5881740586) 133 mmol/L 135-145 L K (test code = 0946310883) 3.8 mmol/L 3.5-5.0 CL (test code = 9234143356) 95 mmol/L 98-108 L CO2 TOTAL (test code = 9739994422) 30 mmol/L 23-31 AGAP (test code = 7137335390) 2-16 BUN (test code = 4376782344) 15 mg/dL 7-23 GLUCOSE (test code = 8824712731) 112 mg/dL 70-110 H CREATININE (test code = 5097319213) 0.79 mg/dL 0.50-1.04 TOTAL BILI (test code = 6014097165) 0.7 mg/dL 0.1-1.1 CALCIUM (test code = 5196988125) 10.3 mg/dL 8.6-10.6 T PROTEIN (test code = 5045727815) 8.7 g/dL 6.3-8.2 H ALBUMIN (test code = 5278637134) 4.9 g/dL 3.5-5.0 ALK PHOS (test code = 1310021045) 98 U/L 34-122 ALTv (test code = 1742-6) 15 U/L 5-35 AST(SGOT) (test code = 9685775531) 29 U/L 13-40 eGFR (test code = 1538743866) mL/min/1.73m2 CYNTHIA (test code = CYNTHIA) Association of Glomerular Filtration Rate (GFR) and Staging of Kidney Disease* + --+ --+ ------+| GFR (mL/min/1.73 m2) ?| With Kidney Damage ?| ?Without Kidney Damage+ --------+ --------+ +| ?>90 ?| ?Stage one ?| ? Normal ?+ ---+ ---+ -------+| ?60-89 ?| ?Stage two ?| ? Decreased GFR ? + --+ --+ ------+| ?30-59 ?| ?Stage three ?| ? Stage three ? + --+ --+ ------+| ?15-29 ?| ?Stage four ? | ? Stage four ?+ ---+ ---+ -------+| ?<15 (or dialysis) ? ?| ?Stage five ? | ? Stage five ?+ ---+ ---+ -------+ *Each stage assumes the associated GFR level has been in effect for at least three months. ?Stages 1 to 5, with or without kidney disease, indicate chronic kidney disease. Notes: Determination of stages one and two (with eGFR >59mL/min/1.73 m2) requires estimation of kidney damage for at least three months as defined by structural or functional abnormalities of the kidney, manifested by either:Pathological abnormalities or Markers of kidney damage (including abnormalities in the composition of the blood or urine or abnormalities in imaging tests). Lab Interpretation (test code = 87010-2) [facility] 1 [id number] 01:12:12Impression: No acute airspace consolidation. Minimal focal left lung base groundglass opacity from subsegmentalatelectasis, Covid 19 pneumonia, or a pulmonary nodule. RL: 460End of report. Exam: Chest (1 View), 07/19/2020 7:30 PM. Ordering Physician: ISI MCMAHAN. History: Fever. Technique: AP view of the chest. Comparison: None. Findings: Mildly enlarged cardiac silhouette. No consolidation, pleural effusion, orpneumothorax. COPD cannot be excluded. Mild eventration of the righthemidiaphragm. Minimal focal left lung base groundglass opacity. No acute osseous abnormality. [facility], Radiant Results Inft User - 07/19/2020 8:13 PM CDT Exam: Chest (1 View), 07/19/2020 7:30 PM.Ordering Physician: ISI MCMAHAN.History: Fever.Technique: AP view of the chest.Comparison: None.Findings: Mildly enlarged cardiac silhouette. No consolidation, pleural effusion, orpneumothorax. COPD cannot be excluded. Mild eventration of the righthemidiaphragm.Minimal focal left lung base groundglassopacity.No acute osseous abnormality.IMPRESSIONImpression: No acute airspace consolidation.Minimal focal left lung base groundglass opacity from subsegmentalatelectasis, Covid 19 pneumonia, or a pulmonary nodule. RL: 460End of report. [facility]APID [facility])2020-07-20 01:09:17* Test Item Value Reference Range Interpretation Comme nts SARS-CoV-2 Rapid ID NOW (test code = 11785-1) Not Detected Not Detected CYNTHIA (test code = CYNTHIA) ID NOW COVID-19 As say is an isothermal nucleic acid amplification test intended for the qualitative detection of nucleic acid from SARS-CoV-2 viral RNA in nasopharyngeal (PILOT CONTROL OPERATOR) specimens. It is used under Emergency Use Authorization (EUA) by FDA. The limit of detection (LOD) of the assay is 125 Genome Equivalents/mL. A positive result is indicative of the presence of SARS-CoV-2 RNA. ?Clinical correlation with patient history and other diagnostic information is necessary to determine patient infection status. A negative (Not Detected) result does not preclude SARS-CoV-2 infection. In patients with clinical symptoms and other tests that are consistent with SARS-CoV-2 infection, negative results should be treated as presumptive negative and a new specimen should be tested with alternative PCR molecular test. Invalid: Please collect a new specimen for repeat patient testing if clinically indicated. Lab Interpretation (test code = 53191-5) Normal [facility]21[facility] 01:00:11* Test Item Value Reference Range Interpretation Comme nts APPEARANCE (test code = 4261344336) Hazy Clear A COLOR (test code = 4966553813) Yellow Yellow PH (test code = 8462313583) 4.8-8.0 SP GRAVITY (test code = 8370233606) 1.003-1.030 GLU U QUAL (test code = 3790524562) Normal Normal BLOOD (test code = 8104079911) 2+ Negative A KETONES (test code = 7309338196) Negative Negative PROTEIN (test code = 2887-8) Negative Negative UROBILIN (test code = 6741116120) Normal Normal BILIRUBIN (test code = 1921599858) Negative Negative NITRITE (test code = 0934249547) Positive Negative A LEUK HEATHER (test code = 8008110887) 250/uL Negative A RBC/HPF (test code = 8507206186) See_Comment H [Automated [employer]] The system which generated this result transmitted reference range: 0 - 3 HPF. The reference range was not used to interpret this result as normal/abnormal. WBC/HPF (test code = 4843860530) See_Comment H [Automated messa ge] The system which generated this result transmitted reference range: 0 - 5 HPF. The reference range was not used to interpret this result as normal/abnormal. BACTERIA (test code = 7200358171) Moderate Negative A MUCOUS (test code = 4568764411) Slight Negative LPF A AMORPHOUS (test code = 9115476395) Rare Rare HPF SQ EPITH (test code = 8982512819) HPF HYAL CAST (test code = 8536565619) See_Comment H [Automated messa ge] The system which generated this result transmitted reference range: <=2 LPF. The reference range was not used to interpret this result as normal/abnormal. Lab Interpretation (test code = 82282-1) [facility]normal [facility] Whole [id number] 00:59:21* Test Item Value Reference Range Interpretation Comme nts LACTIC ACID (test code = 8530195634) 1.45 mmol/L 0.50-2.20 Lab Interpretation (test cod e = 03157-6) Normal [facility] WITH [id number] 00:56:14* Test Item Value Reference Range Interpretation Comme nts WBC (test code = 6690-2) See_Comment [Automated [employer]] The system which generated this result transmitted reference range: 4.30 - 11.10 10*3/?L. The reference range was not used to interpret this result as normal/abnormal. RBC (test code = 789-8) See_Comment [Automated messa ge] The system which generated this result transmitted reference range: 3.93 - 5.25 10*6/?L. The reference range was not used to interpret this result as normal/abnormal. HGB (test code = 718-7) 13.3 g/dL 11.6-15.0 HCT (test code = 4544-3) 39.4 % 35.7-45.2 MCV (test code = 787-2) 91.4 fL 80.6-95.5 MCH (test code = 785-6) 30.9 pg 25.9-32.8 MCHC (test code = 786-4) 33.8 g/dL 31.6-35.1 RDW-SD (test code = 01826-2) 41.0 fL 39.0-49.9 RDW-CV (test code = 788-0) 12.0 % 12.0-15.5 PLT (test code = 777-3) See_Comment [Automated messa ge] The system which generated this result transmitted reference range: 166 - 358 10*3/?L. The reference range was not used to interpret this result as normal/abnormal. MPV (test code = 03980-6) 8.5 fL 9.5-12.9 L NRBC/100 WBC (test code = 5971982339) See_Comment [Automated [employer]] The system which generated this result transmitted reference range: 0.0 - 10.0 /100 WBCs. The reference range was not used to interpret this result as normal/abnormal. NRBC x10^3 (test code = 1432600408) <0.01 See_Comment [Automated [employer]] The system which generated this result transmitted reference range: 10*3/?L. The reference range was not used to interpret this result as normal/abnormal. GRAN MAT (NEUT) % (test code = 770-8) 70.6 % IMM GRAN % (test code = 4210287031) 0.60 % LYMPH % (test code = 736-9) 14.3 % MONO % (test code = 5905-5) 13.2 % EOS % (test code = 713-8) 0.9 % BASO % (test code = 706-2) 0.4 % GRAN MAT x10^3(ANC) (test code = 7095737894) 5.58 10*3/uL 1.88-7.09 IMM GRAN x10^3 (test code = 9261791413) 0.05 10*3/uL 0.00-0.06 LYMPH x10^3 (test code = 731-0) 1.13 10*3/uL 1.32-3.29 L MONO x10^3 (test code = 742-7) 1.04 10*3/uL 0.33-0.92 H EOS x10^3 (test code = 711-2) 0.07 10*3/uL 0.03-0.39 BASO x10^3 (test code = 704-7) 0.03 10*3/uL 0.01-0.07 Lab Interpretation (test code = 47461-2) Abnormal [facility] Consult Notes Date/Time Note Provider Source 2023-10-14 13:51:00 Associated Order(s): CONSULT ADULT OCCUPATIONAL THERAPY OT GENERAL EVALUATION Consult received via [employer], EMR reviewed and evaluation completed 10/14/23. Patient referred to occupational therapy for evaluation and treatment per stroke protocol. Patient agreeable to participate in occupational therapy. Discharge Recommendations: Therapy Needs and Potential:Not applicable as no further skilled acute care OT needs at this time. Challenges to Home Transition:- Requires physical assistance for IADLS - Requires supervision or verbal cues for BADLS - Requires supervision or verbal cues for IADLS - Limited caregiver availability - Increased risk of falls - Environmental barriers -5 ALIREZA and combo tub/shower Equipment Recommendations:Shower chair and shower brand recorder mat PLAN OF CARE: Discharge from OT services Precautions: Weight bearing status: NA General: PPE Utilized: Gloves and Fall Bracing: N/A Subjective: Patient found sitting upright in bedside chair and stated "I'm ready to go!" Current Occupational Performance and/or Treatment: AM-PAC 6 Clicks (Raw Score 0=Dependent, 24=Independent; Low function Raw Score 0= Dependent, 32=Independent): Raw Score - Daily Activity: 22 T-Scale Score - Daily Activity: 47.1 Feeding: Independent, pt reported eating prior to OT evaluation and stated she did not have any spillage from her mouth. Grooming: Independent, pt washed her hands while standing at sink. Bathing: NT, educated pt on use of shower chair and/or shower brand recorder mat to prevent falls in the shower. UB Dressing: Independent, pt donned robe while sitting upright in bedside chair. LB Dressing: Independent, pt simulated using trunk on hip flexion to simulate donning/doffing socks in bedside chair. Toilet Transfer: Supervision, to descend/ascend with verbal cues to use grab bar for safety. Functional Mobility: sit<>stand Supervision with rolling walker and verbal cues for proper body mechanics; ambulation <>bathroom with rolling walker. Patient/caregiver educated on: Adaptive equipment and ADL training (see above), Fall prevention (handout not issued; reviewed), Positioning, Role of OT, and Stroke Awareness Education. Patient left sitting upright in bedside chair with call menedz in reach. Daughter present. Please, see full evaluation below for more detail. OT EVALUATION: 77 year old female Admit date: 10/13/2023 Date of onset: 10/13/2023 Admit Diagnosis: Numbness [R20.0] OT Diagnosis: Impaired BADL independence, Impaired IADL independence, Weakness, Decreased endurance, and Impaired self-care mobility PMH: Past Medical History: Diagnosis Date HTN (hypertension) PSH: Past Surgical History: Procedure Laterality Date HYSTERECTOMY LAPAROSCOPIC CHOLECYSTECTOMY 2016 PAIN: Denies pain before and after session. OCCUPATIONAL ROLES/HOME ENVIRONMENT: Home environment: Lives with daughter, 10/09 supervision/assistance is not available, Mobile Home/Trailer, and Stairs (5). 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 Function prior to admission: Household ambulation, Community ambulation, Independent with BADLs, and Independent with IADLs Suspected ischemic or hemorraghic stroke patient: No Equipment prior to admission: None PERFORMANCE SKILLS/FACTORS: UE Muscle Tone: bilateral WNL UE ROM: bilateral AROM WFL UE Strength: NORM UE 4/5 Hand dominance: right Dexterity/Coordination: bilateral Intact Endurance - Sitting: Good Standing: Good Sitting Balance - Static: Good Dynamic: Good Standing: Balance - Static Good Dynamic: Good Dizziness: No Skin Integrity: defer full skin assessment to nursing Sensation: Patient denies numbness and tingling. Oral Motor: WFL and Dentures Communication: Able to verbalize needs Yes Other: N/A Vision: WFL Yes Other: glasses or contacts Hearing: good; no issues reported COGNITION: Orientation: NT; no concerns at this time Follows Commands: 1-step Yes Multi-step NT Inconsistencies No Safety Awareness/Judgment: Good PROBLEM LIST: Decreased independence with ADL and Decreased strength/endurance for functional activity REHAB POTENTIAL/PROGNOSIS: good PATIENT/FAMILY GOALS: "I want to go home." TREATMENT/INTERVENTION PLAN: Discharge from OT PATIENT-FAMILY TEACHING Patient and Family member provided with preferred teaching of verbal information and demonstration on Adaptive equipment and ADL training (see above), Fall prevention (handout not issued; reviewed), Positioning, Role of OT, and Stroke Awareness Education. Shows readiness to learn. Verbal instruction and Demonstration teaching provided. Individual verbalizes understanding of teaching provided. MELANI Gardner, JACINTA Total Timed Treatment Codes: 8 Min Total Treatment Time: 17 Min Patient Complexity Level Moderate - An occupational therapy evaluation of moderate complexity was completed using the above tests and measures. The following information was obtained: An occupational profile and medical and therapy history, including an expanded review of medical and/or therapy records and additional review of physical, cognitive, or psychosocial history related to current functional performance, Various standardized and non-standardized assessments were used to identify at least 3-5 performance deficits related to physical, cognitive, or psychosocial skills that result in activity limitations and/or participation restrictions, and Clinical decision making of moderate analytic complexity, which includes an analysis of the occupational profile, analysis of data from detailed assessment(s), and consideration of several treatment options. Patient may present with comorbidities that affect occupational performance. Minimal to moderate modification of tasks or assistance (e.g., physical or verbal) with assessment(s) is necessary to enable patient to complete evaluation component. [facility] 2023-10-14 11:10:00 Associated Order(s): CONSULT ADULT PHYSICAL THERAPY Patient cleared with nursing and agreeable to working with physical therapy. Patient met semi reclined in bed. Recommend nursing staff utilize rolling walker and independent to safely assist patient with mobility out of the bed or chair. PHYSICAL THERAPY EVALUATION Consult received, chart reviewed and evaluation complete this date. Patient is referred to PT for evaluation and treatment. Patient is a 77 year old female who presents to hospital for Numbness [R20.0] stroke work up, expressed that she has arthritis on both knees and 3 falls just recently with legs giving out under her. Discharge Recommendations: Therapy Needs and Potential: Patient without any skilled PT needs at this time. Challenges to Home Transition: N/A Equipment recommendations: Rolling Walker or Rollator: I certify that Yoselin Horne is under my care and that I had a [id number] encounter with this patient on: 10/14/23 . The primary reason for the durable medical equipment: provide stability, balance and promote independence. I am ordering and certify that, based on my findings, the following is medically necessary durable medical equipment: Rolling walker . Patient has a mobility limitation that significantly impairs his/her ability to participate in one or more mobility-related activities of daily living (MRADL) in the home and the patient is able to safely use the walker and the functional mobility deficit can be sufficiently resolved with use of a walker. Height: Ht Readings from Last 1 Encounters: 10/13/23 5' 2" (1.575 m) Weight: Wt Readings from Last 1 Encounters: 10/13/23 147 lb 14.4 oz (67.1 kg) Duration of need: 99 months. Current Functional Status and/or Treatment: AM-PAC 6 Clicks (Raw Score 0=Dependent, 24=Independent; Low function Raw Score 0= Dependent, 32=Independent): Raw Score - Basic Mobility : 23 T-Scale Score - Basic Mobility : 50.88 Tolerated session well without c/o pain. Bed Mobility: Rolling: Independent Supine to sit: Independent Scooting to edge of bed: Independent Sitting EOB for ~ 5 mins while prepping to stand and AROM ex of both LE Dizziness No Transfers: Sit to stand: Independent using Rolling Walker Step transfer: Independent using Rolling Walker Stand to sit: Independent using Rolling Walker Instructed patient to scoot forward so feet are flat on the floor, widen ERIBERTO, stand upright and to reach back for sitting surface before sitting down for safety with control descent Dizziness No Ambulation: Assisted patient with ambulation as follows: 700 feet using rolling Walker. and Independent. Patient presenting with Step-through and normal jackson wide ERIBERTO gait pattern. No unsteadiness / LOB or SOB noted. Responded well with use of rolling walker and able to demonstrate safe mobility / maneuver with no to very mild discomfort on both knees. Stated, "I feel more confident walking with a rolling walker and I have no to 1/10 knee pain." Provided varying grade assistance to increase patient control and intermittent cues to improve posture Dizziness No Therapeutic exercise: Patient educated in ROM ex, Postural / positional Awareness, Compensatory techniques/adaptive strategies, Energy conservation, and Fall prevention, instructed patient a home exercise program and which she performed the following: AROM ex of bilateral LE while seated EOB A-P 10 reps x 1 to 2 sets cues provided for self pacing so as to promote proper quality of motion as well as target specific muscle groups for increased strength and reach full pain free ROM Patient educated on the following: energy conservation and breathing ex. Functional Outcome Measures: (Values within the past 12 hours) PT Functional Outcomes 6 minute walk: 700 ft. Brunilda Modified RPE Scale: 2/10 Tinetti Gait Score- # / 12 Initiation of gait: No hesitancy (Using a rollilng walker) Step length: On both sides, swing foot passes stance foot Foot clearance: Both feet completely clear floor Step Symmetry: Step lengths equal Step continuity: Steps appear continuous Path: Mild/moderate deviation or uses AD Trunk: Marked sway or uses AD Walking: Heels apart Tinetti Gait Score: 8 Tinetti Gait Score Interpretation: >= 7 - Low risk for falls TINETTI BALANCE SCORE- # / 16 Sitting balance: Steady, safe Arises: Able, uses arms to help Attempts to Rise: Able to rise, 1 attempt Immediate standing balance (first 5 sec): Steady but uses walker or other support Standing Balance: Steady but ERIBERTO > 4 inches or uses AD/other support Nudged 3 times *: Staggers, grabs, catches self (with rolling walker) Eyes closed*: Steady Turning 360 degrees: Continuous steps and steady Sitting down: Uses arms or motion not smooth Tinetti Balance Score: 11 Tinetti Balance Interpretation: >= 9 - Low risk for falls After session, patient up in chair. Call button provided. All needs met, RN aware, family present. PLAN OF CARE: PT signs off. See below for complete details. Admit Date: 10/13/2023 Hospital Diagnosis:Numbness [R20.0] stroke work up PT Diagnosis: Difficulty walking and Pain Weight Bearing Precaution: NA General Precautions: General,IV Peripheral Bracing/Cast present or required:N/A PMH: Past Medical History: Diagnosis Date HTN (hypertension) PSH: Past Surgical History: Procedure Laterality Date HYSTERECTOMY LAPAROSCOPIC CHOLECYSTECTOMY 2016 Prior Living Situation: with their daughter and double wide trailer house with 4 to 5 steps to enter using 2 HR DME: No device Prior level of Mobility: community ambulation, house hold ambulation Suspected ischemic or hemorraghic stroke:No Subjective: "I'm feeling better but I have arthritis on my knees." Patient/Family Goals: Go home Patient/Family verbalizes understanding of condition: Yes PAIN: -Pain Location: right leg, left leg (knees) -Pain rating before treatment: 3, After treatment: 0 -Pain Management: Reports taking pain meds and Repositioning Provided COMMUNICATION Primary Language: Tamazight Able to Verbalize needs: Yes Vision:glasses Hearing:good; no issues reported ORIENTATION/COGNITION: Oriented to: person, place, date/time, and situation Awake: Yes Alert: Yes Dizzy: No Follows Commands: Yes 1-Step Yes Multi-Step Yes Inconsistent: No NEUROLOGICAL Light Touch: within functional limits bilateral LE, Heel to ureña: WFL Tone: WFL BALANCE: Sitting: Static: Excellent Dynamic: Excellent Standing: Static: Excellent Dynamic: Good RANGE OF MOTION: within functional limits bilateral LE, STRENGTH: 5/5 (Normal), bilateral LE ENDURANCE: Good, Room air SKIN INTEGRITY: defer to nursing PROBLEM LIST: Decline in gait, Safety awareness deficits, and Pain ASSESSMENT: Patient is a 77 year old female seen secondary to the above listed diagnosis. No further inpatient PT needs identified at this time. Rehabilitation Potential: NA as no further therapy needs Goals: The following goals are to maximize independence and safety with functional mobility to eventually return to prior living situation and prior functional status. Defer as no PT needs. Treatment Plan: Gait training, Therapeutic exercise, Transfer training, Balance training, Bed mobility training, Equipment needs assessment, Safety education, patient/caregiver education, Pain management, Neuromuscular Re-Education, and Functional Motor Training PATIENT EDUCATION: Patient and Family member provided with preferred teaching of verbal information and demonstration on role of PT, plan of care, proper use of Rolling walker and HEP. Shows readiness to learn. Verbal instruction and Demonstration teaching provided. Individual is able to read and verbalizes understanding of teaching provided and accurately returns demonstration of skill. Total Time Tx Codes in Minutes: 23 min Total Treatment Time in Minutes: 31 min Myles Tam PT [facility] 2023-10-14 10:54:54 Associated Order(s): CONSULT SPEECH Speech-Language Pathology Clinical Swallow Evaluation 10/14/2023 Yoselin Horne : 1945 Age/Sex: 77 year old female Time IN/OUT: [id number] Referring Physician: Ike Carver MBBS Date of Referral: 10/13/23 Reason for Referral: stroke activation (dysphagia, speech-language/cognitive-linguistic) Date of Admission/Onset: 8/25/24 SUBJECTIVE: Upon entry, patient awake/alert and sitting up in the chair. Patient denies any concerns for speech-language/cognitive-linguistic changes and reported her L sided weakness is improving. Patient reports her primary language is divehi but is fluent in latvian and agreeable to continued participation in latvian. Patient denies any concerns with swallowing, but agreeable to participation. OBJECTIVE: is being seen for a clinical swallow evaluation.Per MD notes: "Yoselin Horne is a 77 year old right-handed woman with PMHX of HTN and arthritis, who presented on 10/13/23 with acute left sided weakness for >4.5 H. CTH showed possible left BG infarct that would not explain the patient's left sided weakness. CTA unremarkable. Will load and start plavix (aspirin allergy) and obtain MRI brain to clarify. Alternative diagnosis would be complicated migraine given recurrent pattern of similar episodes with headache." Pertinent Imaging: MR STROKE BRAIN WO CONTRAST Result Date: 10/14/2023 No definite acute ischemia. Preliminary Report Dictated by Resident: Leonel Ya I, Roque Marx MD., have reviewed this study and agree with the above report. CT ACUTE STROKE ANGIOGRAM HEAD Result Date: 10/13/2023 No aneurysm or high-grade stenosis is present in the intracranial or cervical vessels. CT ACUTE STROKE ANGIOGRAM NECK Result Date: 10/13/2023 No aneurysm or high-grade stenosis is present in the intracranial or cervical vessels. CT ACUTE STROKE HEAD WO CONTRAST Result Date: 10/13/2023 Age-indeterminate lacunar infarcts in the basal ganglia Incidentally noted severe inflammatory changes in the paranasal air sinuses, partially visualized Previous [employer] Services/Swallow History: None documented or reported. Past Medical History: Diagnosis Date HTN (hypertension) Past Surgical History: Procedure Laterality Date HYSTERECTOMY LAPAROSCOPIC CHOLECYSTECTOMY 2017 General Behavior: Alert and Cooperative Hearing: ?Seems hard of hearing Respiratory Status: room air Orientation/Cognition: - Patient oriented to: person, place, time, and situation - Response type: verbal - Follows 1-step commands: Yes Current Diet Texture/Means of Nutrition: regular (IDDSI level 7)-textured diet with thin liquids (IDDSI level 0) Oral Motor Exam Dentition and Oral Cavity: dentate, moist oral mucosa, and clean oral cavity Face ?appears slightly asymmetric Jaw symmetrical Lips impaired function, characterized by asymmetric labial spread and pucker Tongue midline on protrusion Palate unable to assess/did not assess Vocal Quality clear Speech clear/intelligible CLINICAL SWALLOW EVALUATION Swallows on command: Yes Handles Secretions: Yes Volitional Cough: present Spontaneous Cough: No PO trials were administered by patient. Patient was provided with multiple bites/sips of thin liquid (0), puree (4), and regular solid (7) consistencies with the following observations: Oral Stage Anterior leakage of bolus not observed Pocketing of bolus not observed Subjectively prolonged oral phase observed with thin liquid (0) x1 Oral residue not observed Mastication slow Pharyngeal Stage Subjectively reduced laryngeal elevation not observed Coughing or throat clearing not observed Change in voice quality not observed Multiple swallows subjectively not observed Respiratory sufficiency and coordination WFL - no increased work of breathing and/or oxygen sats and respiratory rate remained stable Report of globus sensation no 3 oz water challenge passed Patient/Family/Staff education: Provided verbally. Discussed findings of evaluation, recommendations and PICK AND SHOVEL WORKER plan of care. Patient/family verbalized understanding and is in agreement with plan of care. 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 *Note: aspiration cannot be ruled out nor confirmed without instrumental assessment/imaging. Prognosis: favorable for safe po intake with universal swallow precautions due to above findings. RECOMMENDATIONS/GOALS: Diet: Recommend patient continue a regular (IDDSI level 7)-textured diet with thin liquids (IDDSI level 0) Precautions: - Swallow Precautions: sit fully upright/in chair and remain upright after PO intake - Recommend elevated head of bed and frequent, thorough oral hygiene care due to possible risk for aspiration. Instrumental Swallow Assessment: - Not indicated at this time. Additional Referrals: - None evident at this time. Continued PICK AND SHOVEL WORKER services: No further acute PICK AND SHOVEL WORKER services indicated at this time, so service is signing off. Please re-consult if indicated. Thank you. Discharge Recommendations: - None evident related to PICK AND SHOVEL WORKER at this time. Fely Nayak M.S., [facility]-PICK AND SHOVEL WORKER Speech-Language Pathologist Office: [phone] Pager: [phone] [facility] 2023-10-14 10:51:45 Associated Order(s): CONSULT PREDATORY ANIMAL TRAPPER-ADULT Care Management Note 10/14/23 10:52 AM Reason for Consult - Please give recommendations and opinions on family primary decision maker and appropriate options for discharge destination. CM met with patient at the bedside to complete assessment. She lives at home with her daughters. She plans to return home at discharge. She is capable of making her own decisions, but has her daughters activity participating in her care. MALINDA Russell, RN Inpatient Night Patrol Inspector [email or web address] [facility] History and Physical Notes Date/Time Note Provider Source 2023-10-13 18:35:40 STROKE SERVICE HISTORY AND PHYSICAL DATE OF SERVICE: 10/13/2023 18:36 CHIEF COMPLAINT: acute left sided weakness HISTORY OF PRESENT ILLNESS Yoselin Horne is a 77 year old right-handed woman with PMHX of HTN and arthritis, who presented on 10/13/23 with acute left sided weakness for >4.5 H. She woke up at 8 AM 10/12 with severe left arm weakness and left facial droop. She was able to walk but with difficulty and called her daughter who thought she sounded slurred. She also had a severe left sided headache. She has been getting similar episodes for the past 10 years always associated with headache but this time lasted for longer. Her current symptoms rapidly improved but she still has mild weakness. Antiplatelets: No Anticoagulations: No Tobacco abuse: Yes started using 5 cigarettes/day for the past 7 months Alcohol abuse: Yes chronic use 3 beers/day Drug abuse: No Previous stroke: Yes family mention of a previous imaging finding of stroke. Body mass index is 27.05 kg/m?. STROKE DOCUMENTATION Stroke Activation - Date: (Not stroke activation) Stroke Activation - Time: 1100 Physician arrival at bedside - Date: 10/13/23 Physician arrival at bedside - Time: 1045 CT-Head without contrast read by Neurology: 1047 Last seen normal: Last known well - Date: 10/13/23 Last known well - Time: 0200 Wake up stroke: Yes NIH STROKE SCALE NIHSS TOTAL: 1 NIHSS Interval: Admission LOC: 0 Alert: Keenly Responsive LOC QUESTIONS: 0 Answers Both Questions Correctly LOC COMMANDS: 0 Performs Both Tasks Correctly BEST GAZE: 0 Normal VISUAL: 0 No Visual Loss FACIAL PALSY: 0 Normal MOTOR ARM-LEFT: 0 No Drift MOTOR ARM-RIGHT: 0 No Drift MOTOR LEG-LEFT: 0 No Drift MOTOR LEG-RIGHT: 0 No Drift LIMB ATAXIA: 0 Absent SENSORY: 1 [id number] Sensory Loss BEST LANGUAGE: 0 No Aphasia DYSARTHRIA: 0 Normal EXTINCTION AND INATTENTION (FORMERLY NEGLECT): 0 No Abnormalty Dysphagia Screen: Dysphagia Screen Step 1 (Exclusion Criteria): Pass (none of the above) Dysphagia Screen Step 2 (Management of secretions): Pass (none of the above) Dysphagia Screen Step 3 (3-ounce water swallow challenge): Pass (none of the above) IV Tenecteplase: Was IV thrombolytic therapy given?: No Reason no IV thrombolytic therapy initiated: Arrival > 4.5 hours from symptom onset If IV Thrombolytic therapy was indicated and given as a standard of care was the patient/family informed of benefits of treatment and risk such as hemorrhage and/or angioedema?: (not recorded) Was there a delay in door to IV thrombolytic over 30 minutes?: (not recorded) Reason (s): (not recorded) ICH/SAH ICH/SAH: No Endovascular Intervention: Was Endovascular Intervention Performed?: No Reason patient is not a candidate for endovascular intervention: Imaging: no large vessel occlusion PRE- ADMISSION MODIFIED CHASIDY SCORE 1 - No significant disability despite symptoms; able to carry out all usual duties and activities PAST MEDICAL HISTORY Past Medical History: Diagnosis Date HTN (hypertension) PAST SURGICAL HISTORY Past Surgical History: Procedure Laterality Date HYSTERECTOMY LAPAROSCOPIC CHOLECYSTECTOMY 2017 FAMILY HISTORY No family history on file. SOCIAL HISTORY Social History Socioeconomic History Marital status: Tobacco Use Smoking status: Every Day Types: Cigarettes Reviewed patient's family, surgical and social hx. HOME MEDICATIONS Medications Prior to Admission Medication Sig Dispense Refill Last Dose cephALEXin (KEFLEX) 500 mg capsule Take 1 Cap by mouth 3 (three) times daily. 30 Cap 0 ondansetron (ZOFRAN ODT) 4 mg disintegrating tablet Take 1 Tab by mouth every 8 (eight) hours as needed for Nausea and Vomiting (N/V). 10 Tab 0 HOSPITAL MEDICATIONS Current Facility-Administered Medications Medication Dose Route Frequency Last Rate Last Admin atorvastatin (LIPITOR) tablet 40 mg 40 mg Oral QHS clopidogreL (PLAVIX) 300 mg tablet 300 mg 300 mg Oral ONCE [START ON 10/14/2023] clopidogreL (PLAVIX) 75 mg tablet 75 mg 75 mg Oral DAILY [START ON 10/14/2023] enoxaparin (LOVENOX) injection 40 mg 40 mg Subcutaneous DAILY labetaloL (NORMODYNE) 5 mg/mL injection 10 mg 10 mg Slow IV Push [id number] NaCl 0.9% (NS) injection 5 mL 5 mL Slow IV Push PRN - SEE INSTRUCTIONS ALLERGY Allergies Allergen Reactions Asa [Aspirin] Unknown - See comments REVIEW OF SYSTEMS General: (-) fever, (-) chills, (-) weight change, (-) dizziness, (-) fatigue, (-) change in appetite Skin: (-) rash, (-) lesion HEENT: (-) headache, (-) change in hearing, (-) change in vision, (-) nasal discharge, (-) sore throat Neck: (-) pain, (-) difficulty swallowing, (-) mass Heme: (-) bleeding disorder Resp: (-) cough, (-) shortness of breath, (-) dyspnea on exertion Cardio: (-) chest pain, (-) palpitations, (-) syncope GI: (-) abdominal pain, (-) nausea, (-) vomiting, (-) diarrhea, (-) constipation, (-) melena, (-) hematochezia, (-) hematemesis : (-) dysuria, (-) hematuria, (-) increased frequency, (-) difficulty urinating, (-) difficulty initiating Endo: (-) heat intolerance, (-) diabetes, (-) cold intolerance, (-) polyuria, (-) polydipsia, (-) renal insufficiency, (-) thyroid disease Neuro: (-) numbness, (-) tingling, (-) weakness Back: (-) pain, (-) spasms ISELA: (-) muscle pain, (-) joint pain, (-) claudication Psych: (-) anxiety, (-) depression, (-) psychiatric disorder PHYSICAL EXAM Vitals: 10/13/23 1430 10/13/23 1445 10/13/23 1500 10/13/23 1629 BP: (!) 161/78 (!) 164/70 (!) 140/57 131/68 Pulse: 72 76 73 68 Resp: 13 15 14 20 Temp: 36.7 ?C (98.1 ?F) 36.7 ?C (98.1 ?F) TempSrc: Oral SpO2: 98% 97% 98% 97% Weight: Height: General: Well appearing. Dressed in hospital gowns. No apparent distress. Mental Status: Alert and oriented x4 (person, place, time, and situation). Consciousness, attention, concentration: normal, Stays focused and on task while being questioned. Language: intact to comprehension, fluency, repetition and naming. Fund of knowledge: is congruent with level of education. Remote and recent memory: normal. Cranial Nerves: I. Not tested. II. Symmetric, equally reactive pupils. Field of vision intact to confrontation in either of the four quadrants. III. IV., . Extraocular movements intact without nystagmus . V. Normal sensation bilaterally in V1-3 distributions. VII. No facial droop noted. VIII. Hearing intact to finger rubbing in either ear. IX., X. Palatal elevation normal symmetrically. XI. Normal strength of sternocleidomastoid and trapezius muscles bilaterally. XII. Tongue in midline. Motor system: Tone: normal Bulk: normal Strength Right Left Deltoid 5 4+ Biceps 5 4+ Triceps 5 4+ Wrist extensors 5 4+ Interossei 5 4+ Hip flexors 4+ 4+ Knee flexors (hamstring) 4+ 4+ Knee extensors (quadriceps) 4+ 4+ Ankle dorsiflexors 4+ 4+ Ankle plantar flexors 4+ 4+ Deep Tendon Reflexes Right Left Biceps 2+ 2+ Triceps 2+ 2+ Brachioradialis 2+ 2+ Patella 2+ 2+ Achilles 1+ 1+ Pathologic reflexes and signs: Ankle clonus: absent Cortes's sign: negative bilaterally. Plantar response: mute bilaterally Cerebellum: Negative: tremors, nystagmus, rapid alternating movements, gnhkul-ki-[id number] testing, cwxy-fo-mcvy testing Sensory system: Left face, arm, and leg numbness 50% compared to right. Gait: Deferred. General examination: HEENT: moist mucus membranes. Clear oropharynx. Lungs: normal breath sounds. No abnormal sounds. Cardio: normal heart sounds. No added sounds. Extremities: no cyanosis, clubbing or edema. Neck: supple. No carotid bruit or JVD. Abdomen: normal contour. Soft, non-tender to palpation. Normoactive bowel sounds. LABS, RADIOLOGY, ELECTROPHYSIOLOGY MRI brain: Ordered. CT head (10/13/23): Impression: Age-indeterminate lacunar infarcts in the basal ganglia. CTA head and neck (10/13/23): Impression: No aneurysm or high-grade stenosis is present in the intracranial or cervical vessels. ASSESSMENT AND PLAN Yoselin Horne is a 77 year old right-handed woman with PMHX of HTN and arthritis, who presented on 10/13/23 with acute left sided weakness for >4.5 H. CTH showed possible left BG infarct that would not explain the patient's left sided weakness. CTA unremarkable. Will load and start plavix (aspirin allergy) and obtain MRI brain to clarify. Alternative diagnosis would be complicated migraine given recurrent pattern of similar episodes with headache. Acute ischemic stroke vs complicated migraine - Admission under Neurology service - Q4H Neurochecks - Plavx 300 mg once now and Plavix 75 mg daily starting tomorrow - Lipitor 40 mg nightly and adjust according to LDL - <220/110 for ischemic stroke first 24h, then resume home anti-hypertensive medications for goal normo-tension - Hold home BP med losartan 25 daily (per family not chart). - Obtain CBC, BMP, fasting Lipid panel, HgA1c, TSH, PT, PTT, Troponin x 1, EKG - Telemetry monitoring - Sliding scale of insulin - Avoid hyperthermia, pain and constipation - Fall precautions - Consult PT/OT/ Speech pathology/Primary swallowing screen - Drawing In Machine Tender on stroke education, smoking cessation, healthy diet, physical activity, weight loss Imaging: - MRI brain without contrast - GI Prophylaxis: pantoprazole - DVT Prophylaxis: enoxaparin - Code status: full code Case seen and discussed with Hector Perez MD, Vascular Neurology Faculty, and will be staffed with Dr. Valdez. Ike Carver MD Neurology resident Vascular Neurology Service [facility] Associated attestation - Mingo Valdez MD - 10/14/2023 10:59 AM CDT Vascular neurology attestation note: 77 year old right-handed woman with PMHX of HTN and arthritis, who presented on 10/13/23 with left sided headache and numbness in left side of body . This is after she had a stressful situation at home . CT head showed possible left BG infarct CTA unremarkable.Mri brain negative for acute ischemia but bilateral small vessel disease . Her BP was high to 150-170s systolic's on arrival . Today her symptoms are completely resolved Hypertensive urgency Small vessel disease Migraine type headache Anxiety attack Recommend Plavix 75 mg and atorvastatin for primary stroke prevention Headache control Follow-up in general neurology clinic Mingo Valdez MD [facility] Notes Date/Time Note Provider Source 2023-10-15 14:52:17 TRANSITIONAL CARE MANAGEMENT ASSESSMENT 10/15/2023 Yoselin Horne [id number] Yoselin Horne is a 77 year old /White female was admitted on 10/13/[address] She was discharged on 10/14/23 with discharge disposition of HR- Routine Discharge. Admitting Physician: Mary Perez Discharge Diagnosis: Complicated migraine HTN urgency No linked episodes TCM Mvw-[id number]-ih-face outreach documentation: Discharge Assessment Chart Assessed: 10/15/23 Transition CM attempted to contact patient x2. CM left a discreet voicemail explaining purpose of call and call back information. Mary Rao RN [facility] 2023-10-15 09:17:07 CM LVM to return call. Will attempt again at a later time. [facility] 2023-10-14 15:55:03 Problem: Falls, Risk of Goal: Absence of falls Outcome: Adequate for discharge Problem: Discharge Planning Goal: Able to perform ADL Outcome: Adequate for discharge Goal: Knowledge of medication management Outcome: Adequate for discharge Goal: Knowledge of need for follow-up care Outcome: Adequate for discharge Goal: Knowledge of personal stroke risk factors Outcome: Adequate for discharge Goal: Knowledge of stroke warning signs Outcome: Adequate for discharge Goal: Facility placement (SNF, LTAC, LTC) appropriate for patient's abilities. Outcome: Adequate for discharge Problem: Mobility - Impaired Goal: Able to achieve maximum mobility level Outcome: Adequate for discharge Goal: Able to use ambulatory assistive device appropriately Outcome: Adequate for discharge Problem: Pain Goal: Control of pain at or below patient's documented comfort goal Outcome: Adequate for discharge Goal: Reduction in pain sensation Outcome: Adequate for discharge Problem: Skin integrity Impaired (Risk or Actual) Goal: Wound healing Outcome: Adequate for discharge Goal: Prevention of new skin breakdown Outcome: Adequate for discharge Marta Campa RN [facility] 2023-10-14 00:52:44 Problem: Discharge Planning Goal: Able to perform ADL Outcome: Progressing as expected Goal: Knowledge of medication management Outcome: Progressing as expected Goal: Knowledge of need for follow-up care Outcome: Progressing as expected Goal: Knowledge of personal stroke risk factors Outcome: Progressing as expected Goal: Knowledge of stroke warning signs Outcome: Progressing as expected Goal: Facility placement (SNF, LTAC, LTC) appropriate for patient's abilities. Outcome: Progressing as expected Problem: Mobility - Impaired Goal: Able to achieve maximum mobility level Outcome: Progressing as expected Goal: Able to use ambulatory assistive device appropriately Outcome: Progressing as expected Problem: Pain Goal: Control of pain at or below patient's documented comfort goal Outcome: Progressing as expected Goal: Reduction in pain sensation Outcome: Progressing as expected Problem: Skin integrity Impaired (Risk or Actual) Goal: Wound healing Outcome: Progressing as expected Goal: Prevention of new skin breakdown Outcome: Progressing as expected Problem: Falls, Risk of Goal: Absence of falls Outcome: Progressing as expected Trenton Reid RN [facility] 2023-10-13 16:32:29 Problem: Discharge Planning Goal: Able to perform ADL Outcome: Progressing as expected Goal: Knowledge of medication management Outcome: Progressing as expected Goal: Knowledge of need for follow-up care Outcome: Progressing as expected Goal: Knowledge of personal stroke risk factors Outcome: Progressing as expected Goal: Knowledge of stroke warning signs Outcome: Progressing as expected Goal: Facility placement (SNF, LTAC, LTC) appropriate for patient's abilities. Outcome: Progressing as expected Problem: Mobility - Impaired Goal: Able to achieve maximum mobility level Outcome: Progressing as expected Goal: Able to use ambulatory assistive device appropriately Outcome: Progressing as expected Problem: Pain Goal: Control of pain at or below patient's documented comfort goal Outcome: Progressing as expected Goal: Reduction in pain sensation Outcome: Progressing as expected Problem: Skin integrity Impaired (Risk or Actual) Goal: Wound healing Outcome: Progressing as expected Goal: Prevention of new skin breakdown Outcome: Progressing as expected Problem: Falls, Risk of Goal: Absence of falls Outcome: Progressing as expected [facility] 2023-10-13 15:12:58 Patient transferred to [facility] for diagnosis of numbness, weakness. Patient agrees to transfer/admit plan and verbalized understanding of plan of care, family aware of plan. Patient awake alert, oriented, resp reg unlabored, skin w/d PIV patent, no s/s infiltration noted. No adverse reaction to medications given while in ED. Report given to [facility] personnel. Shiloh Taylor RN [facility] 2023-10-13 15:08:46 Report given to PHILIP Chandler [facility] 2023-10-13 15:00:44 Report given to [facility] personnel. [facility] 2023-10-13 11:08:00 Critical Care Transport Patient transported to room with RN. Continuous cardiac monitoring and serial vital signs monitored by RN. Shiloh Taylor RN [facility] 2023-10-13 10:53:17 Summary: Patient to CT Patient taken to CT on the corporate manager and with PHILIP Vega Oanh Medellin RN [facility] 2023-10-13 10:52:00 Report received from PHILIP Hugo [facility] 2023-10-13 10:23:17 CC: patient presents to the ER with complaints of left sided numbness that began on awakening this morning. Patient states she went to bed at 0200 normal and woke up around 0800 with numbness. Awake, alert, oriented, resp reg unlabored, skin warm and dry, color appropriate for race, moves all ext without difficulty, amb with minimal assistance. Appears in no distress. Zayda Mckinney RN [facility] 2023-10-13 10:19:00 [facility] Emergency Department Note Patient Name: Yoselin Horne Date of : 1945 77 year old female Treatment Room: TX5/TX5 Primary Care Physician: Ruiz Kang Patient Escorted by: Family [5] Mode of Arrival: Personal means [1] EMS Treatment Prior to ED Arrival: Travel and Exposure Screening: Symptoms Does patient have any of these symptoms?: (not recorded) Exposure Screening Has patient had contact with someone with a communicable disease in the last month?: (not recorded) Diseases exposed to:: (not recorded) Is Patient ?: (not recorded) Exposure Date: (not recorded) Chief Complaint: Chief Complaint Patient presents with Numbness History of Present Illness: HPI Yoselin Horne is a 77 year old female presenting with left sided upper extremity and left-sided lower extremity numbness that started at 8:00 am this morning patient was last seen normal today at 2 am. Patient with history of HTN and history of prior TIA but no known history of stroke. Patient denies headache, denies nausea, vomiting, chest pain or SOB. Past Medical History/Immunizations: Past Medical History: Diagnosis Date HTN (hypertension) Allergies: Allergies Allergen Reactions Asa [Aspirin] Unknown - See comments Past Social History: Substance & Sexual Activity No substance use or sexual activity history on file. Past Surgical History: Past Surgical History: Procedure Laterality Date HYSTERECTOMY Review of Systems: Review of Systems Constitutional: Positive for fatigue. Negative for activity change, appetite change and fever. HENT: Negative for congestion, facial swelling and rhinorrhea. Eyes: Negative for photophobia and visual disturbance. Respiratory: Negative for apnea, cough, choking, chest tightness, shortness of breath, wheezing and stridor. Cardiovascular: Negative for chest pain, palpitations and leg swelling. Gastrointestinal: Negative for abdominal distention, abdominal pain, anal bleeding, blood in stool, constipation, diarrhea, nausea and vomiting. Genitourinary: Negative for dysuria. Musculoskeletal: Negative for neck pain. Neurological: Positive for weakness and numbness. Negative for dizziness, tremors, seizures, syncope, facial asymmetry, speech difficulty, light-headedness and headaches. Physical Exam: ED Triage Vitals [10/13/23 1024] Weight 67.1 kg (147 lb 14.4 oz) Actual or estimated Actual Height 1.575 m (5' 2") BP (!) 155/91 Pulse 99 Resp 16 Temp 37.1 ?C (98.8 ?F) Temp source Oral SpO2 96 % Measured on Room air Physical Exam Vitals and nursing note reviewed. Constitutional: General: She is not in acute distress. Appearance: She is well-developed. She is not diaphoretic. HENT: Head: Normocephalic and atraumatic. Eyes: General: No scleral icterus. Right eye: No discharge. Left eye: No discharge. Conjunctiva/sclera: Conjunctivae normal. Cardiovascular: Rate and Rhythm: Normal rate and regular rhythm. Heart sounds: Normal heart sounds. No murmur heard. No friction rub. No gallop. Pulmonary: Effort: Pulmonary effort is normal. No respiratory distress. Breath sounds: Normal breath sounds. No wheezing. Chest: Chest wall: No tenderness. Abdominal: General: There is no distension. Palpations: Abdomen is soft. There is no mass. Tenderness: There is no abdominal tenderness. There is no guarding or rebound. Musculoskeletal: Cervical back: Neck supple. Skin: General: Skin is warm and dry. Neurological: Mental Status: She is alert and oriented to person, place, and time. Cranial Nerves: No cranial nerve deficit. Sensory: Sensory deficit present. Motor: Weakness present. Coordination: Coordination normal. Comments: NIHSS of 3 Left arm and leg decrease in sensation, decreased left brand recorder strength (now resolving) and mild left lower extremity drift (now resolving) Psychiatric: Behavior: Behavior normal. Radiology: CT ACUTE STROKE ANGIOGRAM HEAD Final Result CT STROKE ANGIOGRAM NECK, CT STROKE ANGIOGRAM HEAD HISTORY: Female 77 years Neuro deficit, acute, stroke suspected Rad: please obtain POCT creatinine prior to CTA head/neck COMPARISON: None TECHNIQUE: Routine CTA head and neck were obtained following the administration of 80 mL IV Isovue FINDINGS: CTA head: The PICA origin is visualized on the right. A left AICA-PICA variant is suspected. The basilar artery is patent. The superior cerebellar arteries are patent. The posterior cerebral arteries are patent. origin of the left RECORD CLERK is noted. A large right posterior communicating artery is present. The distal cervical, petrous, cavernous and supraclinoid internal carotid artery segments are patent. The anterior and middle cerebral arteries are patent. The dural venous sinuses are patent. Severe inflammatory changes and polyposis are noted in the paranasal air sinuses. CTA NECK: The left common carotid artery shares a common origin from the arch with the innominate artery. Mild atherosclerotic plaque is seen in the arch and arch vessel origins without significant luminal narrowing. The innominate and subclavian arteries are patent. The common carotid arteries, carotid bulbs and cervical internal carotid arteries are widely patent. The vertebral arteries are patent from their subclavian origins through the vertebrobasilar junction. IMPRESSION No aneurysm or high-grade stenosis is present in the intracranial or cervical vessels. CT ACUTE STROKE ANGIOGRAM NECK Final Result CT STROKE ANGIOGRAM NECK, CT STROKE ANGIOGRAM HEAD HISTORY: Female 77 years Neuro deficit, acute, stroke suspected Rad: please obtain POCT creatinine prior to CTA head/neck COMPARISON: None TECHNIQUE: Routine CTA head and neck were obtained following the administration of 80 mL IV Isovue FINDINGS: CTA head: The PICA origin is visualized on the right. A left AICA-PICA variant is suspected. The basilar artery is patent. The superior cerebellar arteries are patent. The posterior cerebral arteries are patent. origin of the left RECORD CLERK is noted. A large right posterior communicating artery is present. The distal cervical, petrous, cavernous and supraclinoid internal carotid artery segments are patent. The anterior and middle cerebral arteries are patent. The dural venous sinuses are patent. Severe inflammatory changes and polyposis are noted in the paranasal air sinuses. CTA NECK: The left common carotid artery shares a common origin from the arch with the innominate artery. Mild atherosclerotic plaque is seen in the arch and arch vessel origins without significant luminal narrowing. The innominate and subclavian arteries are patent. The common carotid arteries, carotid bulbs and cervical internal carotid arteries are widely patent. The vertebral arteries are patent from their subclavian origins through the vertebrobasilar junction. IMPRESSION No aneurysm or high-grade stenosis is present in the intracranial or cervical vessels. CT ACUTE STROKE HEAD WO CONTRAST Final Result CT STROKE HEAD WO CONTRAST HISTORY: Female 77 years Neuro deficit, acute, stroke suspected COMPARISON: None TECHNIQUE: Routine CT head without contrast FINDINGS: The ventricles and cerebral sulci are normal in caliber and configuration. No hydrocephalus, midline shift or pathological extra-axial fluid collection is present. The basal cisterns are unremarkable. No acute intracranial hemorrhage or mass effect is present. The reno-white matter differentiation is preserved. Age indeterminate lacunar infarcts are noted involving the left caudate head and anterior limb internal capsule and the right anterior limb internal capsule. No additional significant parenchymal attenuation abnormality is present. 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 The calvarium and skull base are otherwise unremarkable. The mastoid air cells are clear. Severe inflammatory changes and possibly polyposis are seen in the partially visualized paranasal air sinuses. IMPRESSION Age-indeterminate lacunar infarcts in the basal ganglia Incidentally noted severe inflammatory changes in the paranasal air sinuses, partially visualized Lab Results: Lab Results PROTHROMBIN TIME / INR - Abnormal Result Value Ref Range PROTIME PATIENT 9.9 (*) 10.1 - 12.6 Seconds INR 0.8 CBC WITHOUT DIFF - Abnormal WBC 6.31 4.30 - 11.10 10*3/?L RBC 4.17 3.93 - 5.25 10*6/?L HGB 13.3 11.6 - 15.0 g/dL HCT 39.3 35.7 - 45.2 % MCH 31.9 25.9 - 32.8 pg MCV 94.2 80.6 - 95.5 fL MCHC 33.8 31.6 - 35.1 g/dL PLT 306 166 - 358 10*3/?L MPV 9.0 (*) 9.5 - 12.9 fL RDW-CV 12.2 12.0 - 15.5 % RDW-SD 42.2 39.0 - 49.9 fL NRBC x10 3 <0.01 10*3/?L NRBC/100 WBC 0.0 0.0 - 10.0 /100 WBCs IPF % BASIC METABOLIC PANEL (NA, K, CL, CO2, GLUCOSE, BUN, CREATININE, CA) - Abnormal NA 136 135 - 145 mmol/L K 4.0 3.5 - 5.0 mmol/L CL 97 (*) 98 - 108 mmol/L CO2 TOTAL 28 23 - 31 mmol/L AGAP 11 2 - 16 BUN 18 7 - 23 mg/dL GLUCOSE 109 70 - 110 mg/dL CREATININE 0.58 0.50 - 1.04 mg/dL CALCIUM 10.0 8.6 - 10.6 mg/dL eGFR 92.8 mL/min/1.73m2 URINALYSIS - Abnormal APPEARANCE Clear Clear COLOR Pale Yellow (*) Yellow PH 6.5 4.8 - 8.0 SP GRAVITY <=1.005 1.003 - 1.030 GLU U QUAL Negative Negative BLOOD Small (*) Negative KETONES Negative Negative PROTEIN Negative Negative UROBILIN 0.2 mg/dL 0-1.0 mg/dL BILIRUBIN Negative Negative NITRITE Negative Negative LEUK HEATHER Moderate (*) Negative RBC/HPF 5 (*) 0 - 3 HPF WBC/HPF 15 (*) 0 - 5 HPF BACTERIA Many (*) Negative MUCOUS Slight (*) Negative LPF SQ EPITH 1 HPF POCT GLUCOSE(AGE >30DAYS) - Normal POCT Glu (age>30days) 99 70 - 110 mg/dL ACTIVATED PARTIAL THRMPLAS ELIDA - Normal APTT Patient 31 26 - 36 Seconds TROPONIN I - Normal TROPONIN I 0.004 <=0.034 ng/mL POCT GLUCOSE (AUTOMATED) - Normal POCT GLU 99 70 - 110 mg/dL EKG: If EKG completed, see Procedure Note. Orders and Treatments: Orders Placed This Encounter Procedures CT ACUTE STROKE HEAD WO CONTRAST CT ACUTE STROKE ANGIOGRAM HEAD CT ACUTE STROKE ANGIOGRAM NECK POCT Glucose (Age >30 Days) - Code Stroke Prothrombin Time / INR - Code Stroke aPTT - Code Stroke CBC without Diff - Code Stroke Troponin I - Code Stroke Basic Metabolic Panel (NA, K, CL, CO2, Glucose, BUN, Creatinine, CA) - Code Stroke Urinalysis POCT GLUCOSE (AUTOMATED) O2 Nasal Cannula Orders Placed This Encounter Medications NaCl 0.9% (NS) injection 5 mL iopamidol (ISOVUE 370-500 mL) injection 90 mL First Provider Eval: ED Events Date/Time Event User Comments 10/13/23 1028 Medical Screening Begins CARMELINA VICK MD -- 10/13/23 1028 First Provider Evaluation CARMELINA IVCK MD -- ED COURSE Diagnosis/Impression as of 10/13/23 1049 Numbness Weakness Procedures: Procedures MDM: Medical Decision Making Yoselin Horne is a 77 year-old female presenting with symptoms as above. Patient with NIHSS of 3 initially on my examination but improving. Patient presented to the ER outside of TPA window for last normal, and deficits non-debilitating and also improving. 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 Findings discussed with patient and family. Plan for admission for further management. Patient discussed with admitting neurology physician at [facility] and plan for transfer for admission. Problems Addressed: Numbness: acute illness or injury Weakness: acute illness or injury Amount and/or Complexity of Data Reviewed Labs: ordered. Radiology: ordered. Risk OTC drugs. Prescription drug management. Decision regarding hospitalization. Flowsheet Documentation: Scoring Tools: No data recorded Disposition/Condition: ED Disposition ED Disposition Transfer [facility] to IP[facility]Obs Condition -- Comment -- Discharge Medications: Patient's Medications START taking these medications No medications on file CONTINUE taking these medications which have NOT CHANGED CEPHALEXIN (KEFLEX) 500 MG CAPSULE Take 1 Cap by mouth 3 (three) times daily. ONDANSETRON (ZOFRAN ODT) 4 MG DISINTEGRATING TABLET Take 1 Tab by mouth every 8 (eight) hours as needed for Nausea and Vomiting (N/V). START taking Modified Medications as Prescribed No medications on file STOP taking these medications No medications on file Follow-up: Electronically signed by: Carmelina Vick MD 10/14/23 1326 T [facility]
[2023-12-23] MEDS: NA CHLORIDE 0.9% 1,000 ML ONE (15:22)
[2023-12-23] MEDS: HYDROMORPHONE HCL 1 MG/ML INJ IV PRN (17:15)
[2023-12-23] MEDS: METRONIDAZOLE 500mg IVPB 500 MG/100 ML BAG IV SCH (18:36)
[2023-12-23] MEDS: ONDANSETRON 4 MG/2 ML VIAL IV PRN (18:42)
[2023-12-23] MEDS: Ciprofloxacin 200mg IV 200 MG/100 ML IV.SOLN. IV SCH (20:43)
[2023-12-24 05:40] LABS: Absolute Lymphocytes (CBC) 0.6 K/uL (0.7-4.9); Absolute Monocytes 0.8 K/uL (0.1-1.3); Absolute Neutrophil 9.2 K/uL (1.8-8.0); Hematocrit 37.2 % (36.0-45.0); Hemoglobin 12.3 g/dL (12.0-15.0); Lymphocytes % 5.9 % (15.3-44.8); MCH 30.2 pg (27.0-35.0); MCHC 33.1 g/dL (32.0-36.0); MCV 91.3 fL (80-100); MPV 7.5 fL (7.6-11.3); Monocytes % 7.3 % (3.3-12.3); Neutrophils % 86.8 % (41.7-73.7); Nucleated Red Blood Cells % 0.1 % (0-0); Platelets 282 thou/uL (152-406); RBC Red Blood Cell Count 4.07 M/uL (3.86-4.86); Red Cell Distribution Width 12.6 % (12.1-15.2)
[2023-12-24 05:49] LABS: Anion Gap 6.3 mEq/L (5.0-15.0); Magnesium 1.7 mg/dL (1.6-2.4); Phosphorus 3.4 mg/dL (2.5-4.9); Potassium 4.3 mEq/L (3.5-5.1)
[2023-12-24 09:07] LABS: Blood Morphology Comment NOT SEEN (NOT SEEN); Platelet Estimate ADEQ; White Blood Cell Scan OK (OK)
[2023-12-24] MEDS: PANTOPRAZOLE 40 MG INJ IVP SCH (10:05)
[2023-12-24] MEDS: LOSARTAN POTASSIUM 50 MG TABLET PO SCH (10:06)
--- NOTE | 2023-12-24 14:44 | PN ---
Date of Progress Note: 12/24/2023 Subjective: Status post laparotomy, bowel resection, anastomosis, extensive intraabdominal adhesions for chronic lower abdominal pain, and intermittent bowel obstructions. The patient feels great. Nathalia bains is right now ambulating with Physical Therapy. No appetite. NG tube is minimal. Is still receivi ng IV pain medication and IV hydration. Objective: Vital Signs: Stable. Chest: Clear. Abdomen: Intact surgical site. Bowel sounds negative. Extremities: Good capillary refill. No calf tenderness. Laboratory Data: Blood work shows a WBC count of 10.6 with hemoglobin of 12, potassium 4.3, magnesiu m 1.7. Plan: Incentive spirometry. IV antibiotics. I discussed the case with her primary doctor, Dr. Trisha ambrosio, who just recommended once again to continue losartan. We encouraged ambulation with Physical Th erapy. We are going to clamp the NG tube today, not remove it yet. The Portillo will be removed tomorr ow, NG tube probably tomorrow. We may start diet in the next 48 hours, and then proceed accordingly whenever she can tolerate diet and can switch to medications by mouth, especially pain medications. Then, we expect this patient to develop an ileus from the extensive intraabdominal adhesions and also the bowel resection. VERONICA/MODL Voice ID: [id number] Report ID: [id number]
[2023-12-24] MEDS: LORazepam 2 MG/ML VIAL IV SCH (18:06)
[2023-12-24] MEDS ORDERED: HYDRALAZINE HCL 20 MG/ML VIAL IV PRN (22:45)
--- NOTE | 2023-12-24 23:50 | P.HP ---
Certification for Inpatient Patient admitted to: Inpatient With expected LOS: >2 Midnights Practitioner: I am a practitioner with admitting privileges, knowledge of patient current condition, hospital course, and medical plan of care. Services: Services provided to patient in accordance with Admission requirements found in Title 42 Section 412.3 of the Code of Federal Regulations Patient History Date of Service: 12/25/23 Reason for admission: S/p Surgery History of Present Illness: 77 yo with past medical history of Hypertension, Hyperlipidemia , CAD who was br ought to hospital with lower abdominal pain, intermittent post prandial bloating ,nausea and bowel cramps and was found to have extensive intrabdominal adhesion, bowel stricture/obstructions who underwent Exploratory laparotomy, small bowel resection with anastomosis ,Extensive intrabdominal adhesions, multiple bowel loops x 3 with adhesions, strictures with prox distention and was admitted for post operative monitoring .Denies any nausea or vomiting . Patient noted to have tachycardia and hypertensive and hospitalist was consulted. Patient denies any chest pain. Associated with palpitation. No nausea vomiting or diarrhea. Still having pain in the abdomen. Patient has an NG tube. Patient was assessed and noted to have hypertensive urgency and tachycardic Allergies aspirin Allergy (Verified 12/23/23 08:30) Anaphylaxis Home medications list reviewed: Yes Home Medications: Acetaminophen [Tylenol Extra Strength] 500 mg PO PRN PRN 07/07/18 Calcium Carbonate [Calcium] 2 tab PO DAILY 11/01/23 Loratadine [Claritin*] 10 mg PO DAILY 11/01/23 Losartan Potassium [Cozaar*] 50 mg PO DAILY 11/01/23 Omeprazole [Prilosec] 40 mg PO DAILY 11/01/23 Zinc Gluconate [Zinc] 50 mg PO DAILY 11/01/23 Clopidogrel Bisulfate [Plavix*] 75 mg PO DAILY 11/06/23 - Past Medical/Surgical History Has patient received pneumonia vaccine in the past: Yes Diabetic: No Past Medical History: Reviewed- Non-Contributory -: HTN Past Surgical History: Reviewed- Non-Contributory -: hysterectomy -: Bowel adhesion removed - Family History Family History: Reviewed- Non-Contributory - Family History Mother -: Diabetes - Social History Smoking Status: Never smoker Alcohol use: Yes CD- Drugs: No Caffeine use: Yes Place of Residence: Home Review of Systems 10-point ROS is otherwise unremarkable Physical Examination - Vital Signs Temperature: 98.8 F Blood Pressure: 182/81 Pulse: 81 Respirations: 14 Pulse Ox (%): 97 - Physical Exam General: Alert, Oriented x3, Mild distress HEENT: Atraumatic, Normocephalic Neck: Supple, No LAD Respiratory: Clear to auscultation bilaterally Cardiovascular: Other (Tachycardia ), Irregular heart rate/rhythm Capillary refill: <2 Seconds Gastrointestinal: Soft and benign, W/out hepatosplenomegaly Musculoskeletal: No clubbing Integumentary: No rashes Neurological: Normal strength at 5/5 x4 extr, Cranial nerves 3-12 intact, Normal reflexes 2+ Lymphatics: No axilla or inguinal lymphadenopathy - Studies Laboratory Data (last 24 hrs) 12/24/23 12/24/23 05:05 05:05 WBC 10.60 Hgb 12.3 Hct 37.2 Plt Count 282 Sodium 140 Potassium 4.3 BUN 10 Creatinine 0.63 Glucose 158 H Phosphorus 3.4 Magnesium 1.7 Assessment and Plan - Plan Status post surgery by Dr. Morales Multiple tender incarcerated ventral incisional hernias Extensive intrabdominal adhesions S/p Laparoscopic assisted repair of 4 incisional ventral hernias S/p Extenve laparoscopic extensive lysis of adhesions Pain Control Appreciate help from Surgery Hypertension Antihypertensives titrated Continue home medications and titrate as needed Hydralazine as needed Hyperlipidemia Continue statin CAD Monitor under telemetry Continue home meds GI/DVT prophylaxis Advanced directive full code Patient developed A-fib with RVR Initially tried with IV metoprolol Heart rate came down still 140 but still continues to be in A-fib with RVR Transfer the patient to ICU Started on Cardizem drip Monitor closely on telemetry Will hold anticoagulation at this time till cleared by surgery Cardiology consulted. Discharge Plan: Home Plan to discharge in: 48 Hours - Advance Directives Does patient have a Living Will: Yes Does patient have a Durable POA for Healthcare: No - Code Status/Comfort Care Code Status: Full Code Time Spent Managing Pts Care (In Minutes): 48
[2023-12-25] MEDS: METOPROLOL TARTRATE 5 MG/5 ML INJ IV STA (00:36)
[2023-12-25] MEDS: dilTIAZem HCL 25 MG/5 ML VIAL IV ONE (01:52)
[2023-12-25] MEDS: NA CHLORIDE 0.9% 100 ML ONE (01:53)
[2023-12-25] MEDS: DILTIAZEM INJ 125 MG/25 ML 125 MG in NA CHLORIDE 0.9% 100 ML IV SCH (02:05)
[2023-12-25 08:20] LABS: Absolute Lymphocytes (CBC) 0.7 K/uL (0.7-4.9); Absolute Monocytes 0.8 K/uL (0.1-1.3); Absolute Neutrophil 8.3 K/uL (1.8-8.0); Basophils % 0.1 % (0-1.3); Eosinophils % 0.4 % (0-4.4); Hematocrit 35.1 % (36.0-45.0); Hemoglobin 11.5 g/dL (12.0-15.0); Lymphocytes % 7.1 % (15.3-44.8); MCH 30.1 pg (27.0-35.0); MCHC 32.7 g/dL (32.0-36.0); MCV 92.3 fL (80-100); MPV 7.8 fL (7.6-11.3); Monocytes % 8.5 % (3.3-12.3); Neutrophils % 83.9 % (41.7-73.7); Platelets 271 thou/uL (152-406); RBC Red Blood Cell Count 3.81 M/uL (3.86-4.86); Red Cell Distribution Width 12.5 % (12.1-15.2)
[2023-12-25 08:31] LABS: Anion Gap 6.2 mEq/L (5.0-15.0); Magnesium 1.9 mg/dL (1.6-2.4); Phosphorus 2.2 mg/dL (2.5-4.9); Potassium 3.2 mEq/L (3.5-5.1)
--- NOTE | 2023-12-25 09:32 | P.PN ---
Subjective Date of Service: 12/25/23 Chief Complaint: S/p Surgery She is complaining of severe abdominal pain at operative site, which was relieved by IV morphine overnight, has passed gas, no nausea and vomiting, no GI bleeding, denied any shortness of breath or dizziness or palpitation Physical Examination - Vital Signs Temperature: 97.3 F Blood Pressure: 122/51 Pulse: 64 Respirations: 11 Pulse Ox (%): 98 - Physical Exam Other Physical/Emotional Findings: - Physical Exam. General: alert awake oriented x3, in moderate distress,. HEENT: Atraumatic, normocephalic. Neck: Supple, without JVD or goiter or thyroid weakness. Respiratory: Normal breathing effort, clear to auscultation bilaterally, no crackles no wheezing or rhonchi. Cardiovascular: Irregularly irregular heartbeat in 80 to 90/min on telemetry no murmur no gallop. Gastrointestinal: Distended, decreased bowel sound, tender to touch, in surgical dressing, no ascites, , No masses. Musculoskeletal: No clubbing, No peripheral edema. Integumentary: No rashes. Lymphatics: No axilla or cervical lymphadenopathy - Studies Laboratory Data (last 24 hrs) 12/25/23 12/25/23 08:00 08:00 WBC 9.90 Hgb 11.5 L Hct 35.1 L Plt Count 271 Sodium 141 Potassium 3.2 L D BUN 6 L Creatinine 0.48 L Glucose 124 H Phosphorus 2.2 L Magnesium 1.9 Medications List Reviewed: Yes Assessment And Plan - Plan This is 78 years old female patient with a past medical history significant for hypertension, hyperlipidemia, coronary artery disease who underwent expiratory laparotomy with small bowel resection for small bowel obstruction due to extensive intra-abdominal postoperative adhesions on January 22, was admitted for postoperative observation and developed atrial fibrillation with a rapid ventricular response, a failed IV metoprolol, started on IV diltiazem infusion and transferred to ICU overnight #1 status post laparotomy and small bowel resection on December 24, 2023 POD #1, will keep NG tube, Portillo catheter for today, general surgeon is following the patient, I talked to the general surgeon at the bedside with the patient Pain control with IV hydromorphone as needed, IV fluid, will resume oral diet once her bowel function returns #2 new onset postoperative atrial fibrillation with rapid ventricular response, improving Ventricular rate controlled to 80-90/min on diltiazem drip at 10 mg/min, still in A-fib on monitor Normotensive, asymptomatic, no urgent cardioversion indicated, cardiology has been called, Continue diltiazem drip at current rate, anticipate switching over to oral diltiazem or metoprolol in the next 24 hours Awaiting cardiology input, continue monitoring coordinator, no anticoagulation due to immediate postop #3 mild hypokalemia and hypophosphatemia Serum potassium of 3.2, phosphorus 2.2, will replace IV potassium phosphate infusion x 1, recheck electrolytes tomorrow morning #3 history of hypertension Will hold losartan for now because his blood pressure might drop further DVT prophylaxis; sequential compression device, will hold any anticoagulation once postoperatively hemostasis achieves Advanced directive full code Disposition; will keep her in ICU today and possible downgrade to floor with telemetry in 1 or 2 days
[2023-12-25] MEDS: POTASSIUM PHOS IN 0.9 % NACL 15 MMOL/250 ML BAG IV SCH (09:40)
[2023-12-25] MEDS: METOPROLOL TAR 25 MG TAB PO SCH (12:38)
--- NOTE | 2023-12-25 12:45 | P.CNS ---
Date of Consult: 12/25/23 Chief Complaint: S/p Surgery History of Present Illness: Patient is s/p surgical lapratomy, found to be in AF RVR, denies any chest pain but report history of palpitations. Allergies aspirin Allergy (Verified 12/23/23 08:30) Anaphylaxis Home medications list reviewed: Yes Home Medications: Acetaminophen [Tylenol Extra Strength] 500 mg PO PRN PRN 07/07/18 Calcium Carbonate [Calcium] 2 tab PO DAILY 11/01/23 Loratadine [Claritin*] 10 mg PO DAILY 11/01/23 Losartan Potassium [Cozaar*] 50 mg PO DAILY 11/01/23 Omeprazole [Prilosec] 40 mg PO DAILY 11/01/23 Zinc Gluconate [Zinc] 50 mg PO DAILY 11/01/23 Clopidogrel Bisulfate [Plavix*] 75 mg PO DAILY 11/06/23 - Past Medical/Surgical History Diabetic: No -: HTN -: hysterectomy -: Bowel adhesion removed - Family History Mother Medical History: Diabetes - Social History Alcohol use: Yes CD- Drugs: No Caffeine use: Yes Place of Residence: Home Review of Systems 10-point ROS is otherwise unremarkable Physical Examination Temp Pulse Resp BP Pulse Ox 97.3 F 70 9 L 127/49 L 99 12/25/23 09:51 12/25/23 12:38 12/25/23 11:45 12/25/23 12:38 12/25/23 11:45 General: Alert, In no apparent distress HEENT: Atraumatic, PERRLA, Mucous membr. moist/pink, EOMI, Sclerae nonicteric Neck: Supple, 2+ carotid pulse no bruit, No LAD, Without JVD or thyroid abnormality Respiratory: Clear to auscultation bilaterally, Normal air movement Cardiovascular: Regular rate/rhythm, Normal S1 S2 Gastrointestinal: Normal bowel sounds, No tenderness Musculoskeletal: No tenderness Integumentary: No rashes Neurological: Normal gait, Normal speech, Normal tone, Normal affect Lymphatics: No axilla or inguinal lymphadenopathy Laboratory Data (last 24 hrs) 12/25/23 12/25/23 08:00 08:00 WBC 9.90 Hgb 11.5 L Hct 35.1 L Plt Count 271 Sodium 141 Potassium 3.2 L D BUN 6 L Creatinine 0.48 L Glucose 124 H Phosphorus 2.2 L Magnesium 1.9 - Problems (1) Atrial fibrillation Current Visit: Yes Status: Acute Plan: Patient is currently in sinus rhythm. D/C Cardizem drip start lopressor 25 mg po BID Hold lisinopril patient will need Eliquis 5 mg BID once cleared by surgery team for anticoagulation. get Echo
--- NOTE | 2023-12-25 17:47 | PN ---
Date of Progress Note: 12/25/2023 Subjective: This is a case of a female, who came to us with abdominal pain. Have to have a bowel re section with anastomosis. Overnight, we noticed some changes in cardiac arrhythmias, so the hospital ist and Dr. Kang are helping us with their patient. From the surgical standpoint, she is doing gr eat. She got moved to the ICU for preventive reasons, but went back to sinus rhythm. From the surgi zachary standpoint, she is clear. She has good spirits. Cooperative, oriented x3. Objective: Vital Signs: Stable. Chest: No chest pain. General: No shortness of breath. Surgical area is intact. Afebrile. Extremities: Good capillary refill. No calf tenderness. Laboratory Data: Blood work shows WBC count of 9.9, hemoglobin of 11.5, potassium 3.2, glucose 124. Plan: From the surgical standpoint, we are going to remove the NG tube. We have orders to remove th e Portillo today and trying to figure out from the cardiac and medical standpoint if we have to control intake and output, then we might leave the Portillo one more day. Otherwise, we will like to remove it as soon as possible. We are also awaiting for Cardiology and medical evaluation to see if we can con tinue once again with physical therapy. We may give ice chips today. We might try tomorrow liquid d iet since it will be about 48 hours after the bowel resection. VERONICA/CHERI Voice ID: [id number] Report ID: [id number]
[2023-12-26] MEDS: GUAIFENESIN 600 MG SA TAB PO SCH (03:49)
[2023-12-26 10:03] LABS: Anion Gap 6.4 mEq/L (5.0-15.0); Potassium 3.4 mEq/L (3.5-5.1)
--- NOTE | 2023-12-26 10:45 | P.PN ---
Subjective Date of Service: 12/26/23 Chief Complaint: S/p Surgery Subjective: No new changes, No C/O voiced, Tolerating diet, Ambulating, Improving Review of Systems 10-point ROS is otherwise unremarkable Physical Examination - Vital Signs Temperature: 97.9 F Blood Pressure: 125/46 Pulse: 68 Respirations: 17 Pulse Ox (%): 98 - Physical Exam General: Alert, In no apparent distress HEENT: Atraumatic, PERRLA, EOMI Neck: Supple, JVD not distended Respiratory: Clear to auscultation bilaterally, Normal air movement Cardiovascular: Regular rate/rhythm, Normal S1 S2 Gastrointestinal: Normal bowel sounds, No tenderness Musculoskeletal: No tenderness Integumentary: No rashes Neurological: Normal speech, Normal tone, Normal affect Lymphatics: No axilla or inguinal lymphadenopathy Other Physical/Emotional Findings: - Physical Exam. General: alert awake oriented x3, in moderate distress,. HEENT: Atraumatic, normocephalic. Neck: Supple, without JVD or goiter or thyroid weakness. Respiratory: Normal breathi ng effort, clear to auscultation bilaterally, no crackles no wheezing or rhonchi. Cardiovascular: Irregularly irregular heartbeat in 80 to 90/min on telemetry no murmur no gallop. Gastrointestinal: Distended, decreased bowel sound, tender to touch, in surgical dressing, no ascites, , No masses. Musculoskeletal: No clubbing, No peripheral edema. Integumentary: No rashes. Lymphatics: No axilla or cervical lymphadenopathy - Studies Laboratory Data (last 24 hrs) 12/26/23 09:35 Sodium 140 Potassium 3.4 L BUN 9 Creatinine 0.51 L Glucose 115 H Medications List Reviewed: Yes Assessment And Plan - Current Problems (Diagnosis) (1) Atrial fibrillation Current Visit: Yes Status: Acute Plan: Patient is in sinus rhythm. continue lopressor 25 mg po BID patient will need Eliquis 5 mg BID once cleared by surgery team for anticoagulation.
--- NOTE | 2023-12-26 12:12 | P.PN ---
Subjective Date of Service: 12/26/23 Chief Complaint: S/p Surgery She report she was doing better, her abdominal pain has improved significantly, she converted to normal sinus rhythm while on diltiazem and switch over to oral metoprolol, she remained in normal sinus rhythm for almost 24-hour off diltiazem infusion. She denied any any nausea and vomiting, we are awaiting a general surgeon input for NG tube and oral diet Review of Systems Other: Consitutional; fever(-), chills (-), rigor(-), night sweat(-), unintentional weight loss(-) HEENT; epistaxis (-), otorrhea (-), otalgia (-) Respiratory; shortness of breath (-), wheezing (-), cough (-), sputum (-), pleuritic chest pain (-) Cardiovascular; chest pain (-), peripheral edema (-), paroxysmal nocturnal dyspnea (-), orthopnea (-) Gastrointestinal; nausea (-), vomiting (-), abdominal pain (+), diarrhea (-), constipation (-), melena (-), hematochezia (-) Urinary; urinary frequency (-), dysuria (-), urgency (-), flank pain (-), gross hematuria (-) Skin; rash (-), pruritus (-) 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 General: alert awake oriented x3, in moderate distress,. HEENT: Atraumatic, normocephalic. Neck: Supple, without JVD or goiter or thyroid weakness. Respiratory: Normal breathing effort, clear to auscultation bilaterally, no crackles no wheezing or rhonchi. Cardiovascular: Regular rate and rhythm, S1 and S2 normal, no murmur no gallop. Gastrointestinal: Distended, decreased bowel sound, tender to touch, in surgical dressing, no ascites, , No masses. Musculoskeletal: No clubbing, No peripheral edema. Integumentary: No rashes. Lymphatics: No axilla or cervical lymphadenopathy - Studies Laboratory Data (last 24 hrs) 12/26/23 09:35 Sodium 140 Potassium 3.4 L BUN 9 Creatinine 0.51 L Glucose 115 H Medications List Reviewed: Yes Assessment And Plan - Plan This is 78 years old female patient with a past medical history significant for hypertension, hyperlipidemia, coronary artery disease who underwent expiratory laparotomy with small bowel resection for small bowel obstruction due to extensive intra-abdominal postoperative adhesions on January 22, was admitted for postoperative observation and developed atrial fibrillation with a rapid ventricular response, a failed IV metoprolol, started on IV diltiazem infusion and transferred to ICU overnight #1 postop care status post laparotomy and small bowel resection on December 24, 2023 POD #2, clinically improving, patient seems to ready for p.o. challenge, wait general surgeon to remove the NG tube and start oral diet Pain control with IV hydromorphone as needed, IV fluid, #2 new onset postoperative atrial fibrillation with rapid ventricular response, resolved Converted to normal sinus rhythm on a diltiazem drip, remain in normal sinus rhythm on metoprolol 50 mg twice daily Will continue metoprolol 50 mg twice daily, TTE, Bk Vascor of 4, plan to anticoagulation with a DOAC after surgeon agrees #3 mild hypokalemia and hypophosphatemia Serum potassium improved to 3.4, will give 40 mg IV potassium replacement x 1 #3 history of hypertension Her blood pressure is well-controlled on oral metoprolol, losartan on hold DVT prophylaxis; sequential compression device, will hold any anticoagulation once postoperatively hemostasis achieves Advanced directive full code Disposition; will downgrade to general medical floor today
[2023-12-26] MEDS: POTASSIUM CL 40 MEQ in NA CHLORIDE 0.9% 500 ML IV SCH (12:46)
--- NOTE | 2023-12-26 13:24 | ECHO ---
HEIGHT: 5 ft 2 in WEIGHT: 145 lb 0 oz DATE OF STUDY: 12/26/[address]: Gopal Mitchell MD 2-DIMENSIONAL: YES M.MODE: YES DOPPLER: YES COLOR FLOW: YES TDS: NO PORTABLE: YES DEFINITY: NO BUBBLE STUDY: NO DIAGNOSIS: ATRIAL FIBRILLATION CARDIAC HISTORY: CATHERIZATION: SURGERY: PROSTHETIC VALVE: PACEMAKER: MEASUREMENTS (cm) DIASTOLIC (NORMALS) SYSTOLIC (NORMALS) IVSd 1.1 (0.6-1.2) LA Diam 3.3 (1.9-4.0) LVEF 60-65% LVIDd 4.1 (3.5-5.7) LVIDs 2.2 (2.0-3.5) %FS 46% LVPWd 1.0 (0.6-1.2) Ao Diam 2.9 (2.0-3.7) 2 DIMENSIONAL ASSESSMENT: RIGHT ATRIUM: NORMAL LEFT ATRIUM: NORMAL RIGHT VENTRICLE: NORMAL LEFT VENTRICLE: NORMAL TRICUSPID VALVE: MILD TRICUSPID REGURGITATION MITRAL VALVE: NORMAL PULMONIC VALVE: NORMAL AORTIC VALVE: NORMAL PERICARDIAL EFFUSION: NONE AORTIC ROOT: NORMAL LEFT VENTRICULAR WALL MOTION: NORMAL. DOPPLER/COLOR FLOW: NORMAL. COMMENTS: 1. NORMAL LEFT VENTRICULAR SYSTOLIC FUNCTION. LEFT VENTRICULAR EJECTION FRACTION 60-65%. NORMAL WALL MOTION. 2. NORMAL DIASTOLIC FUNCTION. 3. MILD TRICUSPID REGURGITATION. TECHNOLOGIST: CHANDNI JEAN
--- NOTE | 2023-12-26 14:48 | P.PN ---
Subjective Date of Service: 12/26/23 Chief Complaint: S/p exploratorylaparotomy, small bowel resection, KENN Subjective: Ambulating, Improving Review of Systems General: Unremarkable Eyes: Unremarkable ENT: Unremarkable Respiratory: Unremarkable Cardiovascular: Unremarkable Gastrointestinal: Distention, Other (better, flatus) Genitourinary: Unremarkable Physical Examination - Vital Signs Temperature: 97.9 F Blood Pressure: 125/46 Pulse: 68 Respirations: 14 Pulse Ox (%): 98 - Physical Exam General: Alert, In no apparent distress, Oriented x3, Cooperative HEENT: Normocephalic, PERRLA Neck: Supple Respiratory: Normal air movement Cardiovascular: Normal pulses Gastrointestinal: Hypoactive, Soft and benign, Other (dressing changed, intact surgical sites) Musculoskeletal: No erythema, No tenderness, No warmth Integumentary: No rashes, No breakdown, No erythema, No warmth, No cyanosis Neurological: Normal speech Other Physical/Emotional Findings: - Physical Exam. General: alert awake oriented x3, in moderate distress,. HEENT: Atraumatic, normocephalic. Neck: Supple, without JVD or goiter or thyroid weakness. Respiratory: Normal breathing effort, clear to auscultation bilaterally, no crackles no wheezing or rhonchi. Cardiovascular: Regular rate and rhythm, S1 and S2 normal, no murmur no gallop. Gastrointestinal: Distended, decreased bowel sound, tender to touch, in surgical dressing, no ascites, , No masses. Musculoskeletal: No clubbing, No peripheral edema. Integumentary: No rashes. Lymphatics: No axilla or cervical lymphadenopathy - Studies Laboratory Data (last 24 hrs) 12/26/23 09:35 Sodium 140 Potassium 3.4 L BUN 9 Creatinine 0.51 L Glucose 115 H Medications List Reviewed: Yes Assessment And Plan - Plan IS SCd advance diet d/f friedman ambulate
--- NOTE | 2023-12-27 02:11 | OP ---
Date of Procedure: 12/23/2023 Surgeon: Kane Morales MD Bag Shop Worker: Cori Braxton. Preoperative Diagnoses: Lower abdominal pain, intermittent postprandial bloating, nausea, bowel cram ps, intermittent bowel obstructions. Postoperative Diagnoses: Lower abdominal pain, intermittent postprandial bloating, nausea, bowel crate maker mps, intermittent bowel obstructions, extensive intraabdominal adhesions, bowel strictures and obstru ctions. Procedure: Exploratory laparotomy, small bowel resection with anastomosis, extensive intraabdominal adhesions lysis, and diagnostic laparoscopy. Estimated Blood Loss: Less than 50 cc. Specimen: Small bowel. Findings: Multiple small bowel loops with adhesions, strictures, with proximal distention. Anesthesia: General plus local. Drain: Nasogastric tube and urinary catheter. Indications: This is the case of a female, who came to us with abdominal pain. She has history of c hronic abdominal pain. We have a few etiologies. First, the hernia that she had but when we repaire d the hernias more than a month ago, we noticed severely dense adhesions in the lower abdomen, some o f them trapped in the small bowel. At that moment, we were not ready to do a bowel surgery. We disc ussed with the family. We decided to wake her up and discuss with her the findings. Once she recove red from the hernia, she is doing great from there. She is still have this intermittent clinical fin dings of small-bowel obstruction with cramps in the lower abdomen and we did diagnostic lap done prev iously. We understand may be related to this bowel adhesions, may have some stricture there. So she wants a diagnostic laparotomy, lysis of adhesions. She also understands that we might have to do es wel resection because those may be so dense may not be able to be removed and be viable. We gave her a bowel prep with the intentions that we do bowel resection, at least she has a clean bowel, and als o she asked us if we see some structures of bowel that is borderline to not to leave it there to make sure we remove it since she can improve. She understood. Fully explained the benefits, alternative s, and risks of diagnostic lap, lysis of adhesions, possible bowel resection, possible ostomy, which include, but not limited to infection, bleeding, damage to adjacent structures, anesthesia complicati on, recurrence, AK, and even . She also understands this may not relieve any symptoms. She ramin ht need more than one surgical intervention. She understood and she signed a consent. The family al so understood the plan. Description Of Procedure: The patient brought to the operating room, placed in supine position. Ane sthesia was done without complication. Abdominal area was prepped and draped in sterile fashion. Lo zachary anesthesia was applied, followed by sharp incision of the skin in the ventral region just above t he belly button. The incision was carried down. We put a Gustavo trocar. We noticed once again an e xtensive intraabdominal adhesions. With the diagnostic lap, the area of the previous hernia repair s till intact with no recurrence. The lower abdomen was just full of adhesions. I put a 5 mm trocar t o the left and right of the abdomen and with the help of LigaSure, I proceeded to remove adhesions up to certain point. I got to the point that there is 3 loop of bowel not too far away from the other 1 that are completely dense, plastered to the anterior fascia. There is no way we can separate them. At that moment, I went outside and discussed the case with the family and explained to them that we may have to do a bowel resection in that area and they reassured me of the wishes of their mother th at if we get in that situation, she has no objection to have bowel resection. So at that moment, it cannot be done laparoscopically, so I did do laparotomy after we removed as many adhesions as we can from the abdomen laparoscopically. Then, after that, I proceeded to open the fascia and those bowel loops were completely plastered to the fascia. There was no way to separate without enterotomies. S o to minimize spillage, trying to leave them intact and then obtained proximal and distal control. A fter doing more adhesions with laparotomy, we noticed that the 3 lobes although not exactly next to e ach other, but is not that far away, so we can just remove those segment with the fascia attached to it and then obtained proximal and distal control and do the anastomosis, and that is exactly what we did. Once we removed this damaged bowel from adhesions and strictures, and we obtained proximal and distal control and enterotomies, I fired a KIRSTEN between them. Previously to that, we already resected bowel with the help of a ligature, we got to the mesentery. So once we have the enterotomies there, we fired KIRSTEN 80. Then after that, closed the enterotomies with TA 60. The mesentery was approximat ed with the help of 0 chromic. It looked like a proximal and distal control. We ran the bowel. The rest of the bowel sounds to be viable including large bowel with no extraluminal masses seen. Profu se irrigation was done of the abdomen. We make sure that we have good hemostasis after all those mildred is of adhesions. Then, after that we proceeded then to close the abdomen after fully inspecting the bowel to make sure it is viable and peristaltic. We closed the abdomen with #2 nylon in a running fa shion and then closed the skin with ardha. Sponge count and instrument count was correct. The pat ient tolerated the procedure well. The patient will be in the floor in stable condition. Dr. Britt downs is normal primary doctor, but if we have any medical issues, I gave them the authorization to consu lt the hospitalist. VERONICA/CHERI Voice ID: [id number] Report ID: [id number]
[2023-12-27] MEDS: METOPROLOL TARTRATE 5 MG/5 ML INJ IV PRN (05:28)
[2023-12-27 06:41] VITALS: BMI 26.3
[2023-12-27] MEDS: METOPROLOL TARTRATE 5 MG/5 ML INJ IV STA (06:44)
[2023-12-27] MEDS: dilTIAZem HCL 25 MG/5 ML VIAL IV ONE (07:40)
[2023-12-27] MEDS: NA CHLORIDE 0.9% 500 ML IV ONE (07:50)
[2023-12-27 08:26] LABS: Anion Gap 5.4 mEq/L (5.0-15.0); Potassium 3.4 mEq/L (3.5-5.1)
[2023-12-27] MEDS: DILTIAZEM INJ 125 MG/25 ML 125 MG in NA CHLORIDE 0.9% 100 ML IV SCH (09:18)
--- NOTE | 2023-12-27 10:52 | P.PN ---
Subjective Date of Service: 12/27/23 Chief Complaint: S/p exploratorylaparotomy, small bowel resection, KENN Physical Examination - Vital Signs Temperature: 98.5 F Blood Pressure: 106/68 Pulse: 140 Respirations: 12 Pulse Ox (%): 100 - Physical Exam General: Alert, In no apparent distress, Oriented x3 HEENT: Atraumatic, Normocephalic Neck: Supple Respiratory: Normal air movement Cardiovascular: Irregular heart rate/rhythm (Tachy/a fib) Capillary refill: <2 Seconds Gastrointestinal: Non-distended, Other (Abdominal binder in place, Band-Aids over trocar incision. Postop bandage clean & dry), Tenderness (Mild) Musculoskeletal: No clubbing, No swelling Integumentary: No rashes Neurological: Normal speech, Normal tone, Normal affect Lymphatics: No axilla or inguinal lymphadenopathy Urinary: Portillo catheter External genitalia: Deferred Rectal: Deferred Other Physical/Emotional Findings: Daughter at bedside - Studies Laboratory Data (last 24 hrs) 12/27/23 07:53 Sodium 140 Potassium 3.4 L BUN 6 L Creatinine 0.50 L Glucose 110 H Medications List Reviewed: Yes Assessment And Plan - Plan Assessment And Plan - Plan This is 78 years old female patient with a past medical history significant for hypertension, hyperlipidemia, coronary artery disease who underwent expiratory laparotomy with small bowel resection for small bowel obstruction due to extensive intra-abdominal postoperative adhesions on December 23, was admitted for postoperative observation and developed atrial fibrillation with a rapid ventricular response, failed IV metoprolol, started on IV diltiazem infusion and transferred to ICU overnight #1 postop care status post laparotomy and small bowel resection on December 24, 2023 POD #3, NGT removed 12/26/23, pt started on clear liquid diet Pain control with IV hydromorphone as needed, IV fluid, #2 new onset postoperative atrial fibrillation with rapid ventricular response, resolved, recurred overnight at rate 140-150s moved back to ICU and diltiazem drip reinitiated NPO status until decision if TTE DCCV needed Bk Vascor of 4, plan to anticoagulation with a DOAC after surgeon agrees #3 mild hypokalemia and hypophosphatemia Serum potassium improved to 3.4, will give 40 mg IV potassium replacement x 1 #3 history of hypertension Her blood pressure is well-controlled on oral metoprolol but held for SBP <100, losartan on hold DVT prophylaxis; sequential compression device, will hold any anticoagulation once postoperatively hemostasis achieves Advanced directive full code Disposition; will return to ICU
[2023-12-27] MEDS: AMIODARONE HCL 150 MG in D5W 100 ML IV SCH (13:15)
--- NOTE | 2023-12-27 13:17 | P.PN ---
Subjective Date of Service: 12/27/23 Chief Complaint: S/p exploratorylaparotomy, small bowel resection, KENN Subjective: New changes (Patient is back into AF RVR.) Review of Systems 10-point ROS is otherwise unremarkable Physical Examination - Vital Signs Temperature: 98.5 F Blood Pressure: 117/69 Pulse: 105 Respirations: 13 Pulse Ox (%): 92 - Physical Exam General: Alert, In no apparent distress HEENT: Atraumatic, PERRLA, EOMI Neck: Supple, JVD not distended Respiratory: Clear to auscultation bilaterally, Normal air movement Cardiovascular: Regular rate/rhythm, Normal S1 S2 Gastrointestinal: Normal bowel sounds, No tenderness Musculoskeletal: No tenderness Integumentary: No rashes Neurological: Normal speech, Normal tone, Normal affect Lymphatics: No axilla or inguinal lymphadenopathy Other Physical/Emotional Findings: Daughter at bedside - Studies Laboratory Data (last 24 hrs) 12/27/23 07:53 Sodium 140 Potassium 3.4 L BUN 6 L Creatinine 0.50 L Glucose 110 H Medications List Reviewed: Yes Assessment And Plan - Current Problems (Diagnosis) (1) Atrial fibrillation Current Visit: Yes Status: Acute Plan: Patient is back into AF RVR Amiodaonre bolus and drip. continue lopressor 25 mg po BID patient will need Eliquis 5 mg BID once cleared by surgery team for anticoagulation.
[2023-12-27] MEDS: AMIODARONE HCL 900 MG in Dextrose 5%-Water 482 ML IV SCH (13:30)
[2023-12-27] MEDS: METOPROLOL TAR 25 MG TAB PO SCH (14:10)
--- NOTE | 2023-12-27 15:07 | EKG ---
Test Date: 2023-12-27 Test Time: 05:01:02 Disposal Operator: LISSETTE MEASUREMENT RESULTS: Intervals: Rate: 163 MN: QRSD: 90 QT: 322 QTc: 530 Isabel: P: MN: QRS: -55 T: 58 INTERPRETIVE STATEMENTS: Atrial fibrillation with rapid ventricular response with premature ventricular or aberrantly conducted complexes Left axis deviation Nonspecific ST and T wave abnormality, probably digitalis effect Abnormal ECG Compared to ECG 12/25/2023 08:47:54 Ventricular premature complex(es) now present ST (T wave) deviation now present Sinus rhythm no longer present Electronically Signed On 12-27-23 15:06:34 GRADES 1 THRU 5 TEACHER by Gopal Mitchell
[2023-12-27] MEDS: POTASSIUM CL SA 10 MEQ TAB PO ONE (16:44)
--- NOTE | 2023-12-27 18:02 | PN ---
Date of Progress Note: 12/27/2023 Subjective: History of laparotomy, bowel resection, lysis of adhesions. From the surgical standpoin t and the intestines, she is doing great. No nausea. No vomiting. NG tube is out. She is tolerati ng liquid diet and now we are going to advance to soft mechanical diet. From the medical standpoint, the medical doctor is still working on her heart rhythms. Apparently in the floor, she had some car diac arrhythmias, was brought back to the ICU and then the heart normalized again. From that, I am g oing to leave to the medical doctors manage that part, and I am going to stay on my surgical part. Objective: Chest: Clear. Abdomen: Intact surgical site. Extremities: Good capillary refill. Neuro: Patient is awake, alert, oriented, good spirits, making jokes. She just want a normal diet. Blood work is still pending, the previous one reviewed. Plan: Advance diet. Continue medical service with heart monitoring, ambulation, incentive spirometr y. VERONICA/MODL Voice ID: [id number] Report ID: [id number]
[2023-12-27] MEDS ORDERED: METOPROLOL TAR 25 MG TAB PO SCH (21:00)
[2023-12-27 22:48] LABS: Albumin 2.5 g/dL (3.4-5.0); Albumin/Globulin Ratio 0.7 (1.1-1.8); Alkaline Phosphatase 49 U/L (45-117); Anion Gap 6.3 mEq/L (5.0-15.0); BUN Blood Urea Nitrogen 5 mg/dL (7-18); Bicarbonate 33 mEq/L (21-32); Bilirubin Total 0.7 mg/dL (0.2-1.0); Globulin 3.6 g/dL (2.3-3.5); Glomerular Filtration Rate 97 ml/min (=/>90); Glucose Level 121 mg/dL (74-106); Protein, Total 6.1 g/dL (6.4-8.2); Sodium Level 138 mEq/L (136-145)
[2023-12-27 22:50] LABS: ALT/SGPT < 14 U/L (13-56); AST/SGOT 17 U/L (15-37); Potassium 3.3 mEq/L (3.5-5.1)
[2023-12-27] MEDS: POTASSIUM 25 MEQ EFFERV TAB PO ONE (23:20)
[2023-12-28] MEDS: METOPROLOL TAR 50 MG TAB PO SCH (08:31)
--- NOTE | 2023-12-28 08:35 | P.PN ---
Date of Service: 12/28/23 Subjective Date of Service: 12/28/23 Chief Complaint: S/p exploratory laparotomy, small bowel resection, new onset Afib with RVR Physical Examination - Vital Signs Temperature: 98.5 F Blood Pressure: 138/74 Pulse: 71 Respirations: 12 Pulse Ox (%): 100 - Physical Exam General: Alert, In no apparent distress, Oriented x3 HEENT: Atraumatic, Normocephalic Neck: Supple Respiratory: Normal air movement Cardiovascular: RRR Capillary refill: <2 Seconds Gastrointestinal: Non-distended, Other (Abdominal binder in place, Band-Aids over trocar incision. Postop bandage clean & dry), Tenderness (Mild) Musculoskeletal: No clubbing, No swelling Integumentary: No rashes Neurological: Normal speech, Normal tone, Normal affect Lymphatics: No axilla or inguinal lymphadenopathy Urinary: Portillo catheter External genitalia: Deferred Rectal: Deferred Other Physical/Emotional Findings: feeling better, glad for diet advancement, no complaints - Studies Laboratory Data (last 24 hrs) 12/27/23 07:53 Sodium 140 Potassium 3.4 L BUN 6 L Creatinine 0.50 L Glucose 110 H Assessment And Plan - Plan This is 78 years old female patient with a past medical history significant for hypertension, hyperlipidemia, coronary artery disease who underwent expiratory laparotomy with small bowel resection for small bowel obstruction due to extensive intra-abdominal postoperative adhesions on December 23, was admitted for postoperative observation and developed atrial fibrillation with a rapid ventricular response, failed IV metoprolol, started on IV diltiazem infusion and transferred to ICU overnight - remains in ICU 12/28/23, but converted fairly quickly after starting diltiazem drip. Drip discontinued and metoprolol po restarted. Awaiting surgery okay to start alisquis #1 postop care status post laparotomy and small bowel resection on December 24, 2023 POD #4, NGT removed 12/26/23, pt started on clear liquid diet, diet advanced 12/27/23 Pain control with IV hydromorphone as needed, no iv fluids or diltiazem drip as pt converted to NSR #2 new onset postoperative atrial fibrillation with rapid ventricular response, resolved, recurred overnight at rate 140-150s moved back to ICU and diltiazem drip reinitiated, converted quickly, drip terminated and metoprolol po restarted diet advanced 12/27/23 Bk Vascor of 4, plan to anticoagulation with a DOAC after surgeon agrees (reached out to Surgery 12/28/23) #3 mild hypokalemia and hypophosphatemia Serum potassium improved to 3.4, will give 40 mg IV potassium replacement x 1, resolved this am #3 history of hypertension Her blood pressure is well-controlled on oral metoprolol but held for SBP <100, losartan on hold, SBP 130s 12/28/23 DVT prophylaxis; sequential compression device, will hold any anticoagulation once postoperatively hemostasis achieves Advanced directive full code Disposition; will return to ICU, can downgrade pending cardiology ok
[2023-12-28 10:25] LABS: Absolute Eosinophils 0.3 K/uL (0-0.5); Absolute Lymphocytes (CBC) 0.6 K/uL (0.7-4.9); Absolute Monocytes 0.8 K/uL (0.1-1.3); Absolute Neutrophil 4.8 K/uL (1.8-8.0); Basophils % 0.2 % (0-1.3); Eosinophils % 5.1 % (0-4.4); Hematocrit 33.1 % (36.0-45.0); Hemoglobin 10.8 g/dL (12.0-15.0); Lymphocytes % 8.4 % (15.3-44.8); MCH 29.7 pg (27.0-35.0); MCHC 32.5 g/dL (32.0-36.0); MCV 91.3 fL (80-100); MPV 7.7 fL (7.6-11.3); Monocytes % 12.9 % (3.3-12.3); Neutrophils % 73.4 % (41.7-73.7); Platelets 288 thou/uL (152-406); RBC Red Blood Cell Count 3.62 M/uL (3.86-4.86); Red Cell Distribution Width 12.2 % (12.1-15.2)
[2023-12-28] MEDS: ENOXAPARIN 40 MG/0.4 ML SQ ONE (12:30)
--- NOTE | 2023-12-28 14:08 | P.PN ---
Subjective Date of Service: 12/28/23 Chief Complaint: S/p exploratorylaparotomy, small bowel resection, KENN Subjective: Tolerating diet, Ambulating, Improving Review of Systems Eyes: Unremarkable ENT: Unremarkable Respiratory: Unremarkable Cardiovascular: As per HPI Gastrointestinal: Unremarkable Genitourinary: Unremarkable Musculoskeletal: Unremarkable Physical Examination - Vital Signs Temperature: 96.8 F Blood Pressure: 141/62 Pulse: 64 Respirations: 16 Pulse Ox (%): 100 - Physical Exam General: Alert, In no apparent distress, Oriented x3, Cooperative HEENT: Normocephalic, PERRLA, EOMI Neck: Supple Respiratory: Clear to auscultation bilaterally, Normal air movement Cardiovascular: No edema Gastrointestinal: Normal bowel sounds, Soft and benign Musculoskeletal: No erythema, No tenderness, No warmth Integumentary: No rashes, No breakdown, No erythema, No warmth, No cyanosis Neurological: Normal speech Other Physical/Emotional Findings: Daughter at bedside - Studies Laboratory Data (last 24 hrs) 12/28/23 12/28/23 12/28/23 09:57 05:24 05:24 WBC 6.60 Hgb 10.8 L Hct 33.1 L Plt Count 288 Sodium Potassium 4.3 D Cancelled BUN Creatinine Glucose Total Bilirubin AST ALT Alkaline Phosphatase 12/27/23 21:50 WBC Hgb Hct Plt Count Sodium 138 Potassium 3.3 L BUN 5 L Creatinine 0.47 L Glucose 121 H Total Bilirubin 0.7 AST 17 ALT < 14 Alkaline Phosphatase 49 Medications List Reviewed: Yes Assessment And Plan - Plan Incentive spirometry SCd advance diet ambulate May transfer to floor when OK by medical/cardiology services
[2023-12-28] MEDS: AMIODARONE IN DEXTROSE,ISO-OSM 360 MG/200 ML BAG IV ONE ×2 (17:52→23:58)
[2023-12-28] MEDS: AMIODARONE HCL 150 MG in D5W 100 ML IV STA (17:53)
[2023-12-28] MEDS ORDERED: AMIODARONE HCL 450 MG in D5W 241 ML IV SCH (18:00)
[2023-12-28] MEDS: APIXABAN 2.5 MG TABLET PO SCH (20:39)
[2023-12-29] MEDS: POTASSIUM CL SA 10 MEQ TAB PO ONE (08:42)
--- NOTE | 2023-12-29 10:16 | P.PN ---
Date of Service: 12/29/23 Subjective Date of Service: 12/28/23 Chief Complaint: S/p exploratory laparotomy, small bowel resection, new onset Afib with RVR Sleeping in no distress Physical Examination - Vital Signs Temperature: 98.5 F Blood Pressure: 138/74 Pulse: 71, RRR Respirations: 12 Pulse Ox (%): 100 - Physical Exam General: In no apparent distress, HEENT: Atraumatic, Normocephalic Neck: Supple Respiratory: Normal air movement Cardiovascular: RRR Capillary refill: <2 Seconds Gastrointestinal: Non-distended, Other (Abdominal binder in place) Musculoskeletal: No clubbing, No swelling Integumentary: No rashes Neurological: Normal speech, Normal tone, Normal affect Lymphatics: No axilla or inguinal lymphadenopathy Urinary: Portillo catheter External genitalia: Deferred Rectal: Deferred Other Physical/Emotional Findings: feeling better, glad for diet advancement, no complaints, recurred afib with RVR overnight, Amiodarone drip started per cards Assessment And Plan - Plan This is 78 years old female patient with a past medical history significant for hypertension, hyperlipidemia, coronary artery disease who underwent expiratory laparotomy with small bowel resection for small bowel obstruction due to extensive intra-abdominal postoperative adhesions on December 23, was admitted for postoperative observation and developed atrial fibrillation with a rapid ventricular response, failed IV metoprolol, started on IV diltiazem infusion and transferred to ICU overnight - remains in ICU 12/28/23, but converted fairly quickly after starting diltiazem drip. Drip discontinued and metoprolol po restarted. Awaiting surgery okay to start gia #1 postop care status post laparotomy and small bowel resection on December 24, 2023 POD #4, NGT removed 12/26/23, pt started on clear liquid diet, diet advanced 12/27/23 Pain control with IV hydromorphone as needed, no iv fluids or diltiazem drip as pt converted to NSR tolerating diet, cleared per Surgery #2 new onset postoperative atrial fibrillation with rapid ventricular response, resolved, recurred overnight at rate 140-150s moved back to ICU and diltiazem drip reinitiated, converted quickly, drip terminated and metoprolol po restarted diet advanced 12/27/23 Bk Vascor of 4, plan to anticoagulation with a DOAC after surgeon agrees (reached out to Surgery 12/28/23), started Eliquis 2.5mg BID at 1800 12/28/23 pt reentered afib with RVR. Dr. Mitchell contacted per MACHINE FITTER, Amiodarone drip initiated #3 mild hypokalemia and hypophosphatemia Serum potassium improved to 3.4, will give 40 mg IV potassium replacement x 1, resolved this am postassium 3.4 12/29/23 - replaced per protocol #3 history of hypertension Her blood pressure is well-controlled on oral metoprolol but held for SBP <100, losartan on hold, SBP 130s 12/28/23 DVT prophylaxis; sequential compression device, will hold any anticoagulation once postoperatively hemostasis achieves Advanced directive full code Disposition; will return to ICU, can downgrade pending cardiology ok
[2023-12-29] MEDS: AMIODARONE HCL 200 MG TAB PO SCH (12:14)
--- NOTE | 2023-12-29 12:36 | P.PN ---
Subjective Date of Service: 12/29/23 Chief Complaint: S/p exploratorylaparotomy, small bowel resection, KENN Subjective: New changes (Patient went into RVR again that required amiodarone drip.) Review of Systems 10-point ROS is otherwise unremarkable Physical Examination - Vital Signs Temperature: 97.8 F Blood Pressure: 166/77 Pulse: 96 Respirations: 13 Pulse Ox (%): 96 - Physical Exam General: Alert, In no apparent distress HEENT: Atraumatic, PERRLA, EOMI Neck: Supple, JVD not distended Respiratory: Clear to auscultation bilaterally, Normal air movement Cardiovascular: Regular rate/rhythm, Normal S1 S2 Gastrointestinal: Normal bowel sounds, No tenderness Musculoskeletal: No tenderness Integumentary: No rashes Neurological: Normal speech, Normal tone, Normal affect Lymphatics: No axilla or inguinal lymphadenopathy Other Physical/Emotional Findings: Daughter at bedside - Studies Laboratory Data (last 24 hrs) 12/29/23 05:10 Potassium 3.4 L D Medications List Reviewed: Yes Assessment And Plan - Current Problems (Diagnosis) (1) Atrial fibrillation Current Visit: Yes Status: Acute Plan: Patient is back into AF RVR Amiodaonre bolus and drip overnight start Amiodarone 200 mg po BID continue lopressor 25 mg po BID started on Eliquis 2.5 mg po BID Stop home Plavix. (2) HTN (hypertension) Current Visit: Yes Status: Acute Plan: lower lopressor to 25 mg po BID Start Losartan 15 mg daily
[2023-12-29] MEDS ORDERED: AMIODARONE HCL 900 MG in Dextrose 5%-Water 482 ML IV SCH (13:00)
[2023-12-29] MEDS: METOPROLOL TAR 25 MG TAB PO SCH (17:40)
--- NOTE | 2023-12-29 23:47 | PN ---
Date of Progress Note: 12/29/2023 Diagnoses: Status post bowel resection, anastomosis. Also, history of new-onset atrial fibrillation . Subjective: The patient is doing better. She is down to the floor. She is tolerating diet, passing flatus, having bowel movement. Objective: Chest: Clear. Abdomen: Soft, benign, and depressible. Intact surgical site. Bowel sounds positive. Extremities: Good capillary refill. Laboratory Data: Blood work shows WBC count of 6, hemoglobin of 10.8. Potassium is 3.3 and bicarb i s 33. Plan: From the surgical standpoint, if she is cleared by tomorrow, we will send her home. Follow up in my office in 1 week, call for appointment [phone]. Continue soft diet. No heavy lifting, no mo re than 20 pounds. VERONICA/CHERI Voice ID: [id number] Report ID: [id number]
[2023-12-30 04:28] VITALS: O2SAT 95
[2023-12-30 06:25] LABS: Anion Gap 8.4 mEq/L (5.0-15.0); Potassium 3.4 mEq/L (3.5-5.1)
[2023-12-30] MEDS: POTASSIUM CL SA 10 MEQ TAB PO ONE (08:43)
[2023-12-30 08:49] VITALS: BP 119/62; TEMP 98.1
--- NOTE | 2023-12-30 10:12 | P.PN ---
Subjective Date of Service: 12/30/23 Chief Complaint: S/p exploratorylaparotomy, small bowel resection, KENN Subjective: No new changes, No C/O voiced, Tolerating diet, Ambulating, Improving Review of Systems 10-point ROS is otherwise unremarkable Physical Examination - Vital Signs Temperature: 98.1 F Blood Pressure: 119/62 Pulse: 64 Respirations: 17 Pulse Ox (%): 95 - Physical Exam General: Alert, In no apparent distress HEENT: Atraumatic, PERRLA, EOMI Neck: Supple, JVD not distended Respiratory: Clear to auscultation bilaterally, Normal air movement Cardiovascular: Regular rate/rhythm, Normal S1 S2 Gastrointestinal: Normal bowel sounds, No tenderness Musculoskeletal: No tenderness Integumentary: No rashes Neurological: Normal speech, Normal tone, Normal affect Lymphatics: No axilla or inguinal lymphadenopathy Other Physical/Emotional Findings: Daughter at bedside - Studies Laboratory Data (last 24 hrs) 12/30/23 06:00 Sodium 139 Potassium 3.4 L BUN 8 Creatinine 0.44 L Glucose 115 H Medications List Reviewed: Yes Assessment And Plan - Current Problems (Diagnosis) (1) Atrial fibrillation Current Visit: Yes Status: Acute Plan: Patient is in sinus rhythm continue Amiodarone 200 mg po BID continue lopressor 25 mg po BID started on Eliquis 2.5 mg po BID Stop home Plavix. (2) HTN (hypertension) Current Visit: Yes Status: Acute Plan: lopressor to 25 mg po BID
--- NOTE | 2023-12-31 08:56 | EKG ---
Test Date: 2023-12-28 Test Time: 17:32:56 Quality Control Inspector Heading: LUIS MEASUREMENT RESULTS: Intervals: Rate: 146 [place]: QRSD: 98 QT: 330 QTc: 514 [place]: P: NC: QRS: -50 T: 104 INTERPRETIVE STATEMENTS: Atrial fibrillation with rapid ventricular response Left anterior fascicular block Nonspecific ST and T wave abnormality, probably digitalis effect Abnormal ECG Compared to ECG 12/27/2023 09:41:19 Left anterior fascicular block now present Atrial flutter no longer present Left-axis deviation no longer present Possible ischemia no longer present ST (T wave) deviation still present Electronically Signed On 12-31-23 08:54:07 CABLE LACER by Gopal Mitchell
--- NOTE | 2023-12-31 08:56 | EKG ---
Test Date: 2023-12-28 Test Time: 20:49:30 Sprinkler Repair Technician: LB MEASUREMENT RESULTS: Intervals: Rate: 142 CA: QRSD: 94 QT: 308 QTc: 473 [place]: P: CA: QRS: -47 T: 93 INTERPRETIVE STATEMENTS: Atrial fibrillation with rapid ventricular response Left axis deviation Nonspecific ST and T wave abnormality, probably digitalis effect Abnormal ECG Compared to ECG 12/28/2023 20:48:49 Left-axis deviation now present Atrial flutter no longer present Left anterior fascicular block no longer present ST (T wave) deviation still present Electronically Signed On 12-31-23 08:53:36 PIER MASTER by Gopal Mitchell
--- NOTE | 2023-12-31 08:56 | EKG ---
Test Date: 2023-12-28 Test Time: 20:48:49 Guest Laundry Attendant: LB MEASUREMENT RESULTS: Intervals: Rate: 133 VT: QRSD: 94 QT: 320 QTc: 476 [place]: P: VT: QRS: -53 T: 97 INTERPRETIVE STATEMENTS: Atrial fibrillation with variable AV block Left anterior fascicular block Nonspecific ST and T wave abnormality Abnormal ECG Compared to ECG 12/28/2023 17:32:56 ST (T wave) deviation still present Electronically Signed On 12-31-23 08:53:57 REGISTERED PHLEBOTOMIST PART TIME by Gopal Mitchell
--- NOTE | 2023-12-31 08:58 | EKG ---
Test Date: 2023-12-27 Test Time: 09:41:19 Director Telehealth: SAMATNHA MEASUREMENT RESULTS: Intervals: Rate: 146 MA: QRSD: 88 QT: 332 QTc: 517 [place]: P: MA: QRS: -37 T: 129 INTERPRETIVE STATEMENTS: Atrial flutter with variable AV block Left axis deviation ST & T wave abnormality, consider lateral ischemia Abnormal ECG Compared to ECG 12/27/2023 05:12:13 Possible ischemia now present Atrial fibrillation no longer present ST (T wave) deviation still present Electronically Signed On 12-31-23 08:55:02 RIPSHEAR OPERATOR by Gopal Mitchell
--- NOTE | 2023-12-31 08:58 | EKG ---
Test Date: 2023-12-27 Test Time: 05:12:13 Furnace Unloader: LISSETTE MEASUREMENT RESULTS: Intervals: Rate: 163 [place]: QRSD: 88 QT: 294 QTc: 484 [place]: P: AK: QRS: -66 T: 39 INTERPRETIVE STATEMENTS: Atrial fibrillation with rapid ventricular response Left axis deviation Nonspecific ST and T wave abnormality, probably digitalis effect Abnormal ECG Compared to ECG 12/27/2023 05:01:02 Ventricular premature complex(es) no longer present ST (T wave) deviation still present Electronically Signed On 12-31-23 08:55:05 RESPIRATORY CARE FACULTY by Gopal Mitchell
--- NOTE | 2023-12-31 08:59 | EKG ---
Test Date: 2023-12-25 Test Time: 08:44:18 Traditional [place] Health Practitioner: LUIS MEASUREMENT RESULTS: Intervals: Rate: 63 MS: 180 QRSD: 108 QT: 428 QTc: 437 [place]: P: 34 MS: 180 QRS: -34 T: 53 INTERPRETIVE STATEMENTS: Normal sinus rhythm Left axis deviation Nonspecific T wave abnormality Abnormal ECG Compared to ECG 12/25/2023 00:20:21 Left-axis deviation now present T-wave abnormality now present Atrial fibrillation no longer present Left anterior fascicular block no longer present ST (T wave) deviation no longer present Electronically Signed On 12-31-23 08:56:25 OPERATING ROOM SURGICAL TECHNICIAN by Gopal Mitchell
--- NOTE | 2023-12-31 08:59 | EKG ---
Test Date: 2023-12-25 Test Time: 00:20:21 Mill Manager: REINALDO MEASUREMENT RESULTS: Intervals: Rate: 165 TN: QRSD: 94 QT: 292 QTc: 483 [place]: P: TN: QRS: -48 T: 160 INTERPRETIVE STATEMENTS: Atrial fibrillation with rapid ventricular response Left anterior fascicular block Marked ST abnormality, possible lateral subendocardial injury Abnormal ECG Compared to ECG 11/04/2023 17:43:20 Left anterior fascicular block now present ST (T wave) deviation now present Sinus rhythm no longer present Left-axis deviation no longer present T-wave abnormality no longer present Prolonged QT interval no longer present Electronically Signed On 12-31-23 08:56:36 WINDOWS LAPTOP TECHNICIAN by Gopal Mitchell
== END 2023-12-30 12:46 | disposition home or self-care (01) | DRG 330 ==
LOC: OR 08:44 → 2ND 13:43 → 3RD-ICU 12-25 04:02 → 2ND 12-26 14:37 → 3RD-ICU 12-27 08:47 → 4TH 12-29 10:26
PROVIDERS: ADMIT Surgery; ATTEND Hospitalist
PROC: 0T9B70Z Drainage of Bladder with Drainage Device, Via Natural or Artificial Opening (ICD-10-PCS; 2023-12-23)
PROC: 0DH67UZ Insertion of Feeding Device into Stomach, Via Natural or Artificial Opening (ICD-10-PCS; 2023-12-23)
PROC: 0DB80ZZ Excision of Small Intestine, Open Approach (ICD-10-PCS; principal; 2023-12-23 12:00)
PROC: 0DN80ZZ Release Small Intestine, Open Approach (ICD-10-PCS; 2023-12-23 12:00)
DX: K56.50 Intestinal adhesions [bands], unspecified as to partial versus complete obstruction (principal); I97.191 Other postprocedural cardiac functional disturbances following other surgery; R14.0 Abdominal distension (gaseous); I48.91 Unspecified atrial fibrillation; I10 Essential (primary) hypertension; E78.5 Hyperlipidemia, unspecified; I25.10 Atherosclerotic heart disease of native coronary artery without angina pectoris; E87.6 Hypokalemia; E83.39 Other disorders of phosphorus metabolism; Y83.8 Other surgical procedures as the cause of abnormal reaction of the patient, or of later complication, without mention of misadventure at the time of the procedure
CPT/HCPCS: 36415; 80048; 80053; 83735; 84100; 84132; 85025; 88307; 93005; 93306; 94010; 97110; 97116; 97161; 97530; J0282; J0360; J0690; J0744; J1171; J1650; J2003; J2250; J2405; J2470; J2704; J3010; J3480; J7030; J7040; J7060; J7120